=== PATIENT | male | born 1930 | race Caucasian/White ===

== ENCOUNTER 2017-02-17 20:16 | Emergency (ER) | payer MEDICARE ==
[2017-02-17 20:23] VITALS: BP 185/84; PULSE 60; RESP 18; TEMP 97.1
[2017-02-17] MEDS ORDERED: LIDOCAINE VISCOUS 2% 15 ML CUP MUCOUS MEM ONE (20:52)
--- NOTE | 2017-02-17 21:05 | ED ---
Wound/Laceration HPI - General Chief Complaint: Wound/Laceration Stated Complaint: sent from [facility] Time Seen by Provider: 02/17/17 20:29 Source: patient Mode of arrival: ambulatory Limitations: no limitations - History of Present Illness Initial Comments: 86-year-old male presents to the laceration for the last hours. Patient is not sure exactly if he bit it or something that he ate caught and caused a laceration but he cannot get it to stop bleeding he's been putting a lot of pressure and gauze on it. Patient denies any pain. Patient is on Coumadin for valve issue. He states his Coumadin is normally regulated well. Patient has tried ice along with pressure to stop bleeding. Patient went to [place] before coming here. No lightheadedness no dizziness. - Related Data Home Medications Medication Instructions Recorded Confirmed B Complex-Vit C-Vit E-Zinc [Z-Bec] 1 tab PO HS 01/06/14 01/20/16 Biotin 5 mg PO DAILY 01/06/14 01/20/16 Cholecalciferol [Vitamin D3] 1,000 unit PO DAILY 01/06/14 01/20/16 Ezetimibe/Simvastatin [Vytorin 1 tab PO DAILY 01/06/14 01/20/16 10-40 mg Tablet] Furosemide [Lasix] 20 mg PO DAILY 01/06/14 01/20/16 Isosorbide Mononitrate [Imdur] 60 mg PO DAILY 01/06/14 01/20/16 Omeprazole [PriLOSEC] 20 mg PO AC-BRKFST 01/06/14 01/20/16 Potassium Chloride [Klor-Con 20] 20 meq PO DAILY 01/06/14 01/20/16 Sertraline [Zoloft] 50 mg PO HS 01/06/14 01/20/16 Tamsulosin [Flomax] 0.4 mg PO HS 01/06/14 01/20/16 Temazepam 22.5 mg PO HS 01/06/14 01/20/16 Vit A,C & E/Lutein/Minerals 1 tab PO HS 01/06/14 01/20/16 [Ocuvite Tablet] Warfarin [Coumadin] 5 mg PO DAILY@1800 01/06/14 01/20/16 Aspirin EC [Ecotrin] 81 mg PO DAILY 01/05/16 01/20/16 Levothyroxine Sodium [Synthroid] 88 mcg PO DAILY 01/05/16 01/20/16 Losartan [Cozaar] 50 mg PO DAILY 01/05/16 01/20/16 Thera Tears 1 drop BOTH EYES Q6H PRN 01/05/16 01/20/16 Allergies Allergy/AdvReac Type Severity Reaction Status Date / Time codeine Allergy Rash/Hives Verified 02/17/17 20:22 midazolam HCl [From Versed] Allergy Confusion Verified 02/17/17 20:22 Penicillins Allergy Rash/Hives Verified 02/17/17 20:22 Sulfa (Sulfonamide Allergy Rash/Hives Verified 02/17/17 20:22 Antibiotics) deseryl Allergy Unknown Uncoded 02/17/17 20:22 Review of Systems ROS Statement: Those systems with pertinent positive or pertinent negative responses have been documented in the HPI. ROS Other: All systems not noted in ROS Statement are negative. ENT: Reports: other (Tongue laceration). Denies: throat pain Respiratory: Denies: cough Gastrointestinal: Denies: nausea, vomiting Past Medical History Past Medical History: Coronary Artery Disease (CAD), Cancer, Chest Pain / Angina , GERD/Reflux, Hyperlipidemia, Hypertension, Memory Impairment, Osteoarthritis ( OA), Prostate Disorder, Seizure Disorder, Thyroid Disorder Additional Past Medical History / Comment(s): pt very [place] even with racquel hearing aids. per past medical : mi,varicose veins,bronchitis,diverticulosis, leakage of urine, uti,osteoporosis, skin [id number],"arrythmia"RLS. History of Any Multi-Drug Resistant Organisms: None Reported Past Surgical History: AICD, Cardiac Ablation, Coronary Bypass/CABG, Heart Catheterization, Hernia Repair, Orthopedic Surgery, Pacemaker, Tonsillectomy Additional Past Surgical History / Comment(s): valve replacement sx AND A REDO SX.rt knee arthroscopy, repaired detatched retina x2, racquel cataracts, Past Anesthesia/Blood Transfusion Reactions: Motion Sickness Additional Past Anesthesia/Blood Transfusion Reaction / Comment(s): "versed causes hallucinations" Type of Cardiac Device: Permanent Pacemaker, AICD Device Placement Date:: unk Past Psychological History: No Psychological Hx Reported Smoking Status: Former smoker Past Alcohol Use History: None Reported Past Drug Use History: None Reported - Past Family History Father Family Medical History: CVA/TIA Mother Family Medical History: COPD Additional Family Medical History / Comment(s): from chf at age 98 General Exam Limitations: no limitations General appearance: alert, in no apparent distress Head exam: Present: atraumatic, normocephalic, normal inspection Eye exam: Present: normal appearance, PERRL, EOMI. Absent: scleral icterus, conjunctival injection, periorbital swelling ENT exam: Present: other (Small flap laceration to the mid tongue less than 1 cm continuous bleeding noted.) Course Vital Signs 02/17/17 20:18 Temperature 97.1 F L Pulse Rate 60 Respiratory 18 Rate Blood Pressure 185/84 O2 Sat by Pulse 95 Oximetry Procedures - Procedures Initial comment: Patient was given lidocaine viscous on a cotton ball with pressure for about 10 minutes and silver nitrate was applied to the wound patient tolerated it well Medical Decision Making - Medical Decision Making Reviewed INR of 2.7 was reviewed patient's bleeding has stopped. patient was also evaluated by Dr. Deleon. Patient to continue with continuous pressure today follow-up if not improving. - Lab Data Lab Results 02/17/17 Range/Units 20:46 PT 25.7 H (9.0-12.0) sec INR 2.7 H (<1.2) Disposition Clinical Impression: Laceration, History of Coumadin therapy Disposition: HOME SELF-CARE Condition: Good Instructions: Laceration (ED) Referrals: Ha Velazco MD [Primary Care Provider] - 1-2 days Time of Disposition: 21:42
[2017-02-17 21:07] LABS: INR 2.7 (<1.2); Prothrombin Time 25.7 sec (9.0-12.0)
== END 2017-02-17 21:54 | disposition home or self-care (01) ==
LOC: EC 20:16
DX: S01.512A Laceration without foreign body of oral cavity, initial encounter (principal); E78.5 Hyperlipidemia, unspecified; I10 Essential (primary) hypertension; I25.10 Atherosclerotic heart disease of native coronary artery without angina pectoris; K21.9 Gastro-esophageal reflux disease without esophagitis; N42.9 Disorder of prostate, unspecified; E07.9 Disorder of thyroid, unspecified; M19.90 Unspecified osteoarthritis, unspecified site; Z87.891 Personal history of nicotine dependence; Z79.01 Long term (current) use of anticoagulants; Z79.82 Long term (current) use of aspirin; Z79.899 Other long term (current) drug therapy; Z88.0 Allergy status to penicillin; Z88.2 Allergy status to sulfonamides; Z88.5 Allergy status to narcotic agent; Z88.8 Allergy status to other drugs, medicaments and biological substances; Z86.79 Personal history of other diseases of the circulatory system; X58.XXXA Exposure to other specified factors, initial encounter
CPT/HCPCS: 36415; 85610; 99283

== ENCOUNTER 2017-03-15 08:41 | Emergency (ER) | payer MEDICARE ==
[2017-03-15 08:54] VITALS: BP 188/81; PULSE 77; RESP 18; TEMP 97.7
--- NOTE | 2017-03-15 09:18 | ED ---
General Adult HPI - General Chief complaint: Dental/Oral Stated complaint: Oral Bleed/Tounge Bite Time Seen by Provider: 03/15/17 09:00 Source: patient, RN notes reviewed Mode of arrival: ambulatory Limitations: no limitations - History of Present Illness Initial comments: Patient is an 86-year-old male who presents emergency room today with chief complaint of externally biting his tongue last diarrhea was eating dinner. He states it did bleed at the time. States he was able get stop. He states this morning it was bleeding once again. He states it is now stopped once again while he was driving here. Patient does admit that he is on Coumadin. 2 heart problems. He states he did have his level checked recently was 2.5. He denies any other complaints or symptoms at this time. Patient denies any recent fever, chills, shortness of breath, chest pain, back pain, abdominal pain, nausea or vomiting, numbness or tingling, dysuria or hematuria, constipation or diarrhea, headaches or visual changes, or any other complaints. - Related Data Home Medications Medication Instructions Recorded Confirmed B Complex-Vit C-Vit E-Zinc [Z-Bec] 1 tab PO HS 01/06/14 01/20/16 Biotin 5 mg PO DAILY 01/06/14 01/20/16 Cholecalciferol [Vitamin D3] 1,000 unit PO DAILY 01/06/14 01/20/16 Ezetimibe/Simvastatin [Vytorin 1 tab PO DAILY 01/06/14 01/20/16 10-40 mg Tablet] Furosemide [Lasix] 20 mg PO DAILY 01/06/14 01/20/16 Isosorbide Mononitrate [Imdur] 60 mg PO DAILY 01/06/14 01/20/16 Omeprazole [PriLOSEC] 20 mg PO AC-BRKFST 01/06/14 01/20/16 Potassium Chloride [Klor-Con 20] 20 meq PO DAILY 01/06/14 01/20/16 Sertraline [Zoloft] 50 mg PO HS 01/06/14 01/20/16 Tamsulosin [Flomax] 0.4 mg PO HS 01/06/14 01/20/16 Temazepam 22.5 mg PO HS 01/06/14 01/20/16 Vit A,C & E/Lutein/Minerals 1 tab PO HS 01/06/14 01/20/16 [Ocuvite Tablet] Warfarin [Coumadin] 5 mg PO DAILY@1800 01/06/14 01/20/16 Aspirin EC [Ecotrin] 81 mg PO DAILY 01/05/16 01/20/16 Levothyroxine Sodium [Synthroid] 88 mcg PO DAILY 01/05/16 01/20/16 Losartan [Cozaar] 50 mg PO DAILY 01/05/16 01/20/16 Thera Tears 1 drop BOTH EYES Q6H PRN 01/05/16 01/20/16 Allergies Allergy/AdvReac Type Severity Reaction Status Date / Time codeine Allergy Rash/Hives Verified 03/15/17 08:54 midazolam HCl [From Versed] Allergy Confusion Verified 03/15/17 08:54 Penicillins Allergy Rash/Hives Verified 03/15/17 08:54 Sulfa (Sulfonamide Allergy Rash/Hives Verified 03/15/17 08:54 Antibiotics) deseryl Allergy Unknown Uncoded 03/15/17 08:54 Review of Systems ROS Statement: Those systems with pertinent positive or pertinent negative responses have been documented in the HPI. ROS Other: All systems not noted in ROS Statement are negative. Past Medical History Past Medical History: Coronary Artery Disease (CAD), Cancer, Chest Pain / Angina , GERD/Reflux, Hyperlipidemia, Hypertension, Memory Impairment, Osteoarthritis ( OA), Prostate Disorder, Seizure Disorder, Thyroid Disorder Additional Past Medical History / Comment(s): pt very [place] even with racquel hearing aids. per past medical : mi,varicose veins,bronchitis,diverticulosis, leakage of urine, uti,osteoporosis, skin [id number],"arrythmia"RLS. History of Any Multi-Drug Resistant Organisms: None Reported Past Surgical History: AICD, Cardiac Ablation, Coronary Bypass/CABG, Heart Catheterization, Hernia Repair, Orthopedic Surgery, Pacemaker, Tonsillectomy Additional Past Surgical History / Comment(s): valve replacement sx AND A REDO SX.rt knee arthroscopy, repaired detatched retina x2, racquel cataracts, Past Anesthesia/Blood Transfusion Reactions: Motion Sickness Additional Past Anesthesia/Blood Transfusion Reaction / Comment(s): "versed causes hallucinations" Type of Cardiac Device: Permanent Pacemaker, AICD Device Placement Date:: unk Past Psychological History: No Psychological Hx Reported Smoking Status: Former smoker Past Alcohol Use History: None Reported Past Drug Use History: None Reported - Past Family History Father Family Medical History: CVA/TIA Mother Family Medical History: COPD Additional Family Medical History / Comment(s): from chf at age 98 General Exam - General Exam Comments Initial Comments: General: The patient is awake and alert, in no distress, and does not appear acutely ill. Eye: Pupils are equal, round and reactive to light, extra-ocular movements are intact. No nystagmus. There is normal conjunctiva bilaterally. No signs of icterus. Ears, nose, mouth and throat: There are moist mucous membranes and no oral lesions. No active bleeding. There is a small laceration to the right anterior side of the tongue. It is approximated. Neck: The neck is supple, there is no tenderness or JVD. Cardiovascular: There is a regular rate and rhythm. No murmur, rub or gallop is appreciated. Respiratory: Lungs are clear to auscultation, respirations are non-labored, breath sounds are equal. No wheezes, stridor, rales, or rhonchi. Musculoskeletal: Normal ROM, no tenderness. Strength 5/5. Sensation intact. Pulses equal bilaterally 2+. Neurological: A&O x 3. CN II-XII intact, There are no obvious motor or sensory deficits. Coordination appears grossly intact. Speech is normal. Skin: Skin is warm and dry and no rashes or lesions are noted. Psychiatric: Cooperative, appropriate mood & affect, normal judgment. Limitations: no limitations Course Vital Signs 03/15/17 08:52 Temperature 97.7 F Pulse Rate 77 Respiratory 18 Rate Blood Pressure 188/81 O2 Sat by Pulse 92 L Oximetry Medical Decision Making - Medical Decision Making There is no bleeding at this time. Discussed with patient that if we try to use silver nitrate remake cause bleeding to increase and have difficult time stopping it. At this time there is no bleeding I did advise them to hold pressure to the area clean recurs at home and if rebleeding is uncontrolled return here in emergency room. Disposition Clinical Impression: Hemorrhage of tongue Disposition: HOME SELF-CARE Condition: Good Instructions: Laceration (ED) Additional Instructions: Please use ice water ice to the area as discussed and the recurs along with pressure for 15-20 minutes. If rebleeding is uncontrolled at home please return here to the emergency room. Referrals: Ha Velazco MD [Primary Care Provider] - 1-2 days Time of Disposition: 09:17
== END 2017-03-15 09:27 | disposition home or self-care (01) ==
LOC: EC 08:41
DX: K14.8 Other diseases of tongue (principal); S01.512A Laceration without foreign body of oral cavity, initial encounter; I25.10 Atherosclerotic heart disease of native coronary artery without angina pectoris; K21.9 Gastro-esophageal reflux disease without esophagitis; E78.5 Hyperlipidemia, unspecified; I10 Essential (primary) hypertension; M19.90 Unspecified osteoarthritis, unspecified site; G40.909 Epilepsy, unspecified, not intractable, without status epilepticus; E07.9 Disorder of thyroid, unspecified; M81.0 Age-related osteoporosis without current pathological fracture; G25.81 Restless legs syndrome; Z85.828 Personal history of other malignant neoplasm of skin; Z87.891 Personal history of nicotine dependence; Z79.01 Long term (current) use of anticoagulants; Z79.82 Long term (current) use of aspirin; Z79.899 Other long term (current) drug therapy; Z88.0 Allergy status to penicillin; Z88.2 Allergy status to sulfonamides; Z88.5 Allergy status to narcotic agent; Z88.8 Allergy status to other drugs, medicaments and biological substances; W23.0XXA Caught, crushed, jammed, or pinched between moving objects, initial encounter
CPT/HCPCS: 99283

== ENCOUNTER 2018-02-23 08:27 | Emergency (ER) | payer MEDICARE ==
[2018-02-23 08:34] VITALS: RESP 18
[2018-02-23 09:04] LABS: Basophils # (A) 0.1 k/uL (0-0.2); Basophils % (A) 1 %; Eosinophils # (A) 0.2 k/uL (0-0.7); Eosinophils % (A) 4 %; HCT 43.4 % (39.0-53.0); HGB 13.7 gm/dL (13.0-17.5); Lymphocytes # (A) 0.9 k/uL (1.0-4.8); Lymphocytes % (A) 16 %; MCH 28.7 pg (25.0-35.0); MCHC 31.6 g/dL (31.0-37.0); MCV 90.9 fL (80.0-100.0); Monocytes # (A) 0.3 k/uL (0-1.0); Monocytes % (A) 6 %; Neutrophils # (A) 4.2 k/uL (1.3-7.7); Neutrophils % (A) 72 %; Platelet Count 121 k/uL (150-450); RBC 4.77 m/uL (4.30-5.90); RDW 13.9 % (11.5-15.5); WBC 5.8 k/uL (3.8-10.6)
--- NOTE | 2018-02-23 09:09 | ED ---
Recheck HPI - General Chief Complaint: Recheck/Abnormal Lab/Rx Stated Complaint: Bleeding from a precedure on Time Seen by Provider: 02/23/18 08:36 Source: patient, RN notes reviewed Mode of arrival: ambulatory Limitations: no limitations - History of Present Illness Initial Comments: 87-year-old male presented from chief complaint of bleeding from procedural site. Patient states he had melanoma removed by Dr. Broussard on afternoon. Patient states he had continuation of bleeding on Sunday was seen in office headache redressed and states that he was told to go emergency Department if symptoms persisted. 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 Patient states he has not had it recently checked. Patient states that he is losing to the dressing that it's not profusely bleeding though. - Related Data Home Medications Medication Instructions Recorded Confirmed Cholecalciferol [Vitamin D3] 1,000 unit PO DAILY 01/06/14 03/15/17 Furosemide [Lasix] 20 mg PO DAILY 01/06/14 03/15/17 Isosorbide Mononitrate [Imdur] 60 mg PO DAILY 01/06/14 03/15/17 Omeprazole [PriLOSEC] 20 mg PO AC-BRKFST 01/06/14 03/15/17 Potassium Chloride [Klor-Con 20] 20 meq PO DAILY 01/06/14 03/15/17 Sertraline [Zoloft] 50 mg PO HS 01/06/14 03/15/17 Tamsulosin [Flomax] 0.4 mg PO HS 01/06/14 03/15/17 Vit A,C & E/Lutein/Minerals 1 tab PO 01/06/14 03/15/17 [Ocuvite Tablet] Warfarin [Coumadin] 5 mg PO [id number] 01/06/14 03/15/17 Aspirin EC [Ecotrin] 81 mg PO DAILY 01/05/16 03/15/17 Levothyroxine Sodium [Synthroid] 88 mcg PO DAILY 01/05/16 03/15/17 Atenolol [Tenormin] 12.5 mg PO DAILY 03/15/17 03/15/17 Atorvastatin [Lipitor] 80 mg PO DAILY 03/15/17 03/15/17 Vitamin B Complex 1 cap PO DAILY 03/15/17 03/15/17 Warfarin [Coumadin] 7.5 mg PO SUTH 03/15/17 03/15/17 Allergies Allergy/AdvReac Type Severity Reaction Status Date / Time codeine Allergy Rash/Hives Verified 02/23/18 08:34 midazolam HCl [From Versed] Allergy Confusion Verified 02/23/18 08:34 Penicillins Allergy Rash/Hives Verified 02/23/18 08:34 Sulfa (Sulfonamide Allergy Rash/Hives Verified 02/23/18 08:34 Antibiotics) deseryl Allergy Unknown Uncoded 02/23/18 08:34 Review of Systems ROS Statement: Those systems with pertinent positive or pertinent negative responses have been documented in the HPI. ROS Other: All systems not noted in ROS Statement are negative. Past Medical History Past Medical History: Coronary Artery Disease (CAD), Cancer, Chest Pain / Angina , GERD/Reflux, Hyperlipidemia, Hypertension, Memory Impairment, Osteoarthritis ( OA), Prostate Disorder, Seizure Disorder, Thyroid Disorder Additional Past Medical History / Comment(s): pt very [place] even with racquel hearing aids. per past medical : mi,varicose veins,bronchitis,diverticulosis, leakage of urine, uti,osteoporosis, skin [id number],"arrythmia"RLS. History of Any Multi-Drug Resistant Organisms: None Reported Past Surgical History: AICD, Cardiac Ablation, Coronary Bypass/CABG, Heart Catheterization, Hernia Repair, Orthopedic Surgery, Pacemaker, Tonsillectomy Additional Past Surgical History / Comment(s): valve replacement sx AND A REDO SX.rt knee arthroscopy, repaired detatched retina x2, racquel cataracts, skin cancer removal from the back of neck Past Anesthesia/Blood Transfusion Reactions: Motion Sickness Additional Past Anesthesia/Blood Transfusion Reaction / Comment(s): "versed causes hallucinations" Type of Cardiac Device: Permanent Pacemaker, AICD Device Placement Date:: unk Past Psychological History: No Psychological Hx Reported Smoking Status: Former smoker Past Alcohol Use History: None Reported Past Drug Use History: None Reported - Past Family History Father Family Medical History: CVA/TIA Mother Family Medical History: COPD Additional Family Medical History / Comment(s): from chf at age 98 General Exam Limitations: no limitations General appearance: alert, in no apparent distress Head exam: Present: atraumatic, normocephalic, normal inspection Neck exam: Present: full ROM. Absent: normal inspection (Posterior neck and upper back region there is a 6 inch area on sutures noted there is minimal oozing noted around the sutures, there is ecchymosis surrounding the region and mild tenderness), tenderness, meningismus, lymphadenopathy Respiratory exam: Present: normal lung sounds bilaterally. Absent: respiratory distress, wheezes, rales, rhonchi, stridor Cardiovascular Exam: Present: regular rate, normal rhythm, normal heart sounds. Absent: systolic murmur, diastolic murmur, rubs, gallop, clicks Skin exam: Present: warm, dry, intact, normal color. Absent: rash Course Vital Signs 02/23/18 08:29 Temperature 97.8 F Pulse Rate 57 L Respiratory 18 Rate Blood Pressure 126/72 O2 Sat by Pulse 95 Oximetry Medical Decision Making - Medical Decision Making 87-year-old male presented from bleeding from his procedural site. Patient INR is 3.2. Patient will be advised to hold the next doses to have it rechecked and have his wound rechecked. Patient advised to return for any increase in bleeding. Patient did have wound to placed over the 2 areas of bruising, large bulky dressing was applied. Patient has a follow-up appointment on Sunday. - Lab Data Result diagrams: 02/23/18 08:52 Lab Results 02/23/18 02/23/18 Range/Units 08:52 08:52 WBC 5.8 (3.8-10.6) k/uL RBC 4.77 (4.30-5.90) m/uL Hgb 13.7 (13.0-17.5) gm/dL Hct 43.4 (39.0-53.0) % MCV 90.9 (80.0-100.0) fL MCH 28.7 (25.0-35.0) pg MCHC 31.6 (31.0-37.0) g/dL RDW 13.9 (11.5-15.5) % Plt Count 121 L (150-450) k/uL Neutrophils % 72 % Lymphocytes % 16 % Monocytes % 6 % Eosinophils % 4 % Basophils % 1 % Neutrophils # 4.2 (1.3-7.7) k/uL Lymphocytes # 0.9 L (1.0-4.8) k/uL Monocytes # 0.3 (0-1.0) k/uL Eosinophils # 0.2 (0-0.7) k/uL Basophils # 0.1 (0-0.2) k/uL PT 28.7 H (9.0-12.0) sec INR 3.2 H (<1.2) APTT 36.3 H (22.0-30.0) sec Disposition Clinical Impression: Encounter for examination of surgical site, Bleeding from wound Disposition: HOME SELF-CARE Condition: Stable Instructions: Care For Your Stitches (ED) Additional Instructions: Please return to the Emergency Department if symptoms worsen or any other concerns. Is patient prescribed a controlled substance at d/c from ED?: No Referrals: Ha Velazco MD [Primary Care Provider] - 1-2 days Time of Disposition: 09:38
[2018-02-23 09:13] LABS: INR 3.2 (<1.2); Partial Thromboplastin Time 36.3 sec (22.0-30.0); Prothrombin Time 28.7 sec (9.0-12.0)
[2018-02-23 10:10] VITALS: BP 132/61; PULSE 60; TEMP 97.6
== END 2018-02-23 10:06 | disposition home or self-care (01) ==
LOC: EC 08:27
DX: L76.22 Postprocedural hemorrhage of skin and subcutaneous tissue following other procedure (principal); I25.10 Atherosclerotic heart disease of native coronary artery without angina pectoris; K21.9 Gastro-esophageal reflux disease without esophagitis; E78.5 Hyperlipidemia, unspecified; I10 Essential (primary) hypertension; N42.9 Disorder of prostate, unspecified; E07.9 Disorder of thyroid, unspecified; Z85.820 Personal history of malignant melanoma of skin; Z95.1 Presence of aortocoronary bypass graft; Z95.818 Presence of other cardiac implants and grafts; Z95.810 Presence of automatic (implantable) cardiac defibrillator; Z95.2 Presence of prosthetic heart valve; Z98.890 Other specified postprocedural states; Z87.891 Personal history of nicotine dependence; Z79.01 Long term (current) use of anticoagulants; Z79.82 Long term (current) use of aspirin; Z79.899 Other long term (current) drug therapy; Z88.5 Allergy status to narcotic agent; Z88.4 Allergy status to anesthetic agent; Z88.0 Allergy status to penicillin; Z88.2 Allergy status to sulfonamides; Z88.8 Allergy status to other drugs, medicaments and biological substances
CPT/HCPCS: 36415; 85025; 85610; 85730; 99283

== ENCOUNTER 2018-03-10 10:19 | Emergency (ER) | payer MEDICARE ==
[2018-03-10 10:23] VITALS: BP 150/74; PULSE 63; RESP 20; TEMP 98
[2018-03-10] MEDS ORDERED: LIDOCAINE VISCOUS 2% 15 ML CUP MUCOUS MEM ONE (10:39)
--- NOTE | 2018-03-10 10:41 | ED ---
Wound/Laceration HPI - General Chief Complaint: Wound/Laceration Stated Complaint: melba laceration Time Seen by Provider: 03/10/18 10:25 Source: patient, family, RN notes reviewed, old records reviewed Mode of arrival: ambulatory Limitations: no limitations - History of Present Illness Initial Comments: this patient's an 87-year-old male presents emergency department today with chief complaint of a laceration of his tongue. Patient reports that he is on Coumadin for heart valve problem. Patient reports that his last Coumadin was checked and within normal limits. Patient states that yesterday while he was eating dinner Patient that the end of this time. He reports that he was able to control the bleeding last night. He reports that this morning he noticed some blood on his pillow was concerned was rebleeding. He's been holding pressure and gauze over the area before arriving here. They're concerned this will rebleed again if it is not closed. - Related Data Home Medications Medication Instructions Recorded Confirmed Cholecalciferol [Vitamin D3] 1,000 unit PO DAILY 01/06/14 03/15/17 Furosemide [Lasix] 20 mg PO DAILY 01/06/14 03/15/17 Isosorbide Mononitrate [Imdur] 60 mg PO DAILY 01/06/14 03/15/17 Omeprazole [PriLOSEC] 20 mg PO AC-BRKFST 01/06/14 03/15/17 Potassium Chloride [Klor-Con 20] 20 meq PO DAILY 01/06/14 03/15/17 Sertraline [Zoloft] 50 mg PO HS 01/06/14 03/15/17 Tamsulosin [Flomax] 0.4 mg PO HS 01/06/14 03/15/17 Vit A,C & E/Lutein/Minerals 1 tab PO HS 01/06/14 03/15/17 [Ocuvite Tablet] Warfarin [Coumadin] 5 mg PO [id number] 01/06/14 03/15/17 Aspirin EC [Ecotrin] 81 mg PO DAILY 01/05/16 03/15/17 Levothyroxine Sodium [Synthroid] 88 mcg PO DAILY 01/05/16 03/15/17 Atenolol [Tenormin] 12.5 mg PO DAILY 03/15/17 03/15/17 Atorvastatin [Lipitor] 80 mg PO DAILY 03/15/17 03/15/17 Vitamin B Complex 1 cap PO DAILY 03/15/17 03/15/17 Warfarin [Coumadin] 7.5 mg PO SUTH 03/15/17 03/15/17 Allergies Allergy/AdvReac Type Severity Reaction Status Date / Time codeine Allergy Rash/Hives Verified 03/10/18 10:23 midazolam HCl [From Versed] Allergy Confusion Verified 03/10/18 10:23 Penicillins Allergy Rash/Hives Verified 03/10/18 10:23 Sulfa (Sulfonamide Allergy Rash/Hives Verified 03/10/18 10:23 Antibiotics) deseryl Allergy Unknown Uncoded 03/10/18 10:23 Review of Systems ROS Statement: Those systems with pertinent positive or pertinent negative responses have been documented in the HPI. ROS Other: All systems not noted in ROS Statement are negative. Past Medical History Past Medical History: Coronary Artery Disease (CAD), Cancer, Chest Pain / Angina , GERD/Reflux, Hyperlipidemia, Hypertension, Memory Impairment, Osteoarthritis ( OA), Prostate Disorder, Seizure Disorder, Thyroid Disorder Additional Past Medical History / Comment(s): pt very [place] even with racquel hearing aids. per past medical : mi,varicose veins,bronchitis,diverticulosis, leakage of urine, uti,osteoporosis, skin [id number],"arrythmia"RLS. History of Any Multi-Drug Resistant Organisms: None Reported Past Surgical History: AICD, Cardiac Ablation, Coronary Bypass/CABG, Heart Catheterization, Hernia Repair, Orthopedic Surgery, Pacemaker, Tonsillectomy Additional Past Surgical History / Comment(s): valve replacement sx AND A REDO SX.rt knee arthroscopy, repaired detatched retina x2, racquel cataracts, skin cancer removal from the back of neck Past Anesthesia/Blood Transfusion Reactions: Motion Sickness Additional Past Anesthesia/Blood Transfusion Reaction / Comment(s): "versed causes hallucinations" Type of Cardiac Device: Permanent Pacemaker, AICD Device Placement Date:: unk Past Psychological History: No Psychological Hx Reported Smoking Status: Former smoker Past Alcohol Use History: None Reported Past Drug Use History: None Reported - Past Family History Father Family Medical History: CVA/TIA Mother Family Medical History: COPD Additional Family Medical History / Comment(s): from chf at age 98 General Exam - General Exam Comments Initial Comments: Patient is an 87-year-old male. Alert and oriented. No significant distress. Limitations: no limitations General appearance: alert, in no apparent distress Head exam: Present: atraumatic Eye exam: Present: normal appearance, PERRL, EOMI. Absent: scleral icterus, conjunctival injection, periorbital swelling ENT exam: Present: normal exam, mucous membranes moist. Absent: normal oropharynx (Patient has a small closed abrasion over the left tip of his tongue. There is no active bleeding at this time. No other areas of abrasion in the oropharynx.) Neck exam: Present: normal inspection. Absent: tenderness, meningismus, lymphadenopathy Respiratory exam: Present: normal lung sounds bilaterally. Absent: respiratory distress, wheezes, rales, rhonchi, stridor Cardiovascular Exam: Present: regular rate, normal rhythm, normal heart sounds. Absent: systolic murmur, diastolic murmur, rubs, gallop, clicks GI/Abdominal exam: Present: soft, normal bowel sounds. Absent: distended, tenderness, guarding, rebound, rigid Extremities exam: Present: normal inspection, full ROM, normal capillary refill. Absent: tenderness, pedal edema, joint swelling, calf tenderness Back exam: Present: normal inspection Neurological exam: Present: alert, oriented X3, CN II-XII intact Psychiatric exam: Present: normal affect, normal mood Skin exam: Present: warm, dry, intact, normal color. Absent: rash Course Vital Signs 03/10/18 10:21 Temperature 98.0 F Pulse Rate 63 Respiratory 20 Rate Blood Pressure 150/74 O2 Sat by Pulse 100 Oximetry - Reevaluation(s) Reevaluation #1: 03/10/18 10:42 at this time I discussed with no active bleeding would not be concerned for closing. He is concerned when he eats that it will reopen. I discussed the given some coffee and something to eat here and if it does return to bleed and cauterized it with silver nitrate. Medical Decision Making - Medical Decision Making A 7-year-old male with a history of Coumadin use verbal heart valve disorder presents emergency department today with bleeding over his tongue. He reports his any chronic, and the pain of his son. He can actively controlled last night. He rest the emergency department with gauze over the tongue. There is no active bleeding. It is scabbed over. Did tolerate drinking coffee and eating crackers here in the did not rebleed. The area appears to be well scabbed over. Discussed that I do not want and he is any cauterization methods at this time. Patient agrees. I discussed that if it does seem to rebleeding needs to apply firm pressure for 10-15 minutes. Discussed that he can always return but discontinued re-bleed. Patient agrees. Patient and his understand treat plan will comply. Return parameters were discussed. Disposition Clinical Impression: Tongue biting, Abrasion of tongue Disposition: HOME SELF-CARE Condition: Good Instructions: Soft Diet (ED), Abrasion (ED) Additional Instructions: Patient should return if the bleeding recurs. Patient needs to apply firm pressure over the tongue for 10-15 minutes. Patient can return to the emergency department if it does contain rebleed to stop. Patient should follow- up with primary care provider. Recommended soft foods for the next 2 days. Is patient prescribed a controlled substance at d/c from ED?: No Referrals: Ha Velazco MD [Primary Care Provider] - 1-2 days Time of Disposition: 11:04
== END 2018-03-10 11:12 | disposition home or self-care (01) ==
LOC: EC 10:19
DX: S00.512A Abrasion of oral cavity, initial encounter (principal); E78.5 Hyperlipidemia, unspecified; I10 Essential (primary) hypertension; I25.10 Atherosclerotic heart disease of native coronary artery without angina pectoris; K21.9 Gastro-esophageal reflux disease without esophagitis; N42.9 Disorder of prostate, unspecified; E07.9 Disorder of thyroid, unspecified; H91.93 Unspecified hearing loss, bilateral; Z87.891 Personal history of nicotine dependence; Z88.0 Allergy status to penicillin; Z88.2 Allergy status to sulfonamides; Z88.5 Allergy status to narcotic agent; Z88.8 Allergy status to other drugs, medicaments and biological substances; Z79.01 Long term (current) use of anticoagulants; Z79.82 Long term (current) use of aspirin; Z79.899 Other long term (current) drug therapy; Z86.79 Personal history of other diseases of the circulatory system; Z97.4 Presence of external hearing-aid; Z95.0 Presence of cardiac pacemaker; Z95.1 Presence of aortocoronary bypass graft; Z95.5 Presence of coronary angioplasty implant and graft; X58.XXXA Exposure to other specified factors, initial encounter; Y93.89 Activity, other specified; Y92.009 Unspecified place in unspecified non-institutional (private) residence as the place of occurrence of the external cause
CPT/HCPCS: 99283

== ENCOUNTER 2018-11-06 16:55 | Inpatient (IN) | payer MEDICARE ==
--- NOTE | 2018-11-06 17:12 | ED ---
SOB HPI - General Stated Complaint: Difficulty Breathing Time Seen by Provider: 11/06/18 17:04 - History of Present Illness Initial Comments: This is an 88-year-old male with a history of CHF, AICD placement, previous bypass surgery who presents emergency department for shortness of breath. The patient states that his symptoms started a few days ago however acutely worsened this afternoon. The patient states that he has had a cough productive of bloody sputum. He states he has not had fevers or chills. He has not noticed any weight gain or increased leg swelling. He states that he has been compliant with his medications and diet. The patient was noted to be saturating in the 70s when EMS arrived. They did give him a couple of DuoNeb treatments and 50 g of prednisone in route. the patient reports mild improvement in his symptoms at that time however continued to have significant shortness of breath. patient otherwise denies any chest pain. no abdominal pain, nausea, vomiting, or diarrhea. denies any history of pe or dvt. the patient is on coumadin currently. he denies any other acute complaints. The patient does state that h e would agree to intubation if required. The does state that she was sick recently with an upper respiratory infection area the patient has been coughing. - Related Data Home Medications Medication Instructions Recorded Confirmed Cholecalciferol [Vitamin D3] 1,000 unit PO DAILY 01/06/14 11/06/18 Furosemide [Lasix] 20 mg PO DAILY 01/06/14 11/06/18 Isosorbide Mononitrate [Imdur] 60 mg PO DAILY 01/06/14 11/06/18 Omeprazole [PriLOSEC] 20 mg PO AC-BRKFST 01/06/14 11/06/18 Potassium Chloride [Klor-Con 20] 20 meq PO DAILY 01/06/14 11/06/18 Tamsulosin [Flomax] 0.4 mg PO HS 01/06/14 11/06/18 Vit A,C & E/Lutein/Minerals 1 tab PO 01/06/14 11/06/18 [Ocuvite Tablet] Aspirin EC [Ecotrin] 81 mg PO DAILY 01/05/16 11/06/18 Levothyroxine Sodium [Synthroid] 88 mcg PO DAILY 01/05/16 11/06/18 Atenolol [Tenormin] 12.5 mg PO DAILY 03/15/17 11/06/18 Atorvastatin [Lipitor] 80 mg PO DAILY 03/15/17 11/06/18 Vitamin B Complex 1 cap PO DAILY 03/15/17 11/06/18 Ferrous Sulfate [Iron (65 MG 325 mg PO DAILY 11/06/18 11/06/18 Elemental)] Losartan [Cozaar] 25 mg PO DAILY 11/06/18 11/06/18 Sertraline [Zoloft] 25 mg PO HS 11/06/18 11/06/18 Warfarin [Coumadin] 5 mg PO DAILY 11/06/18 11/06/18 Allergies Allergy/AdvReac Type Severity Reaction Status Date / Time codeine Allergy Rash/Hives Verified 11/06/18 17:23 midazolam HCl [From Versed] Allergy Confusion Verified 11/06/18 17:23 Penicillins Allergy Rash/Hives Verified 11/06/18 17:23 Sulfa (Sulfonamide Allergy Rash/Hives Verified 11/06/18 17:23 Antibiotics) deseryl Allergy Unknown Uncoded 03/10/18 10:23 Review of Systems ROS Statement: Those systems with pertinent positive or pertinent negative responses have been documented in the HPI. ROS Other: All systems not noted in ROS Statement are negative. Past Medical History Past Medical History: Coronary Artery Disease (CAD), Cancer, Chest Pain / Angina, GERD/Reflux, Hyperlipidemia, Hypertension, Memory Impairment, Osteoarthritis (OA), Prostate Disorder, Seizure Disorder, Thyroid Disorder Additional Past Medical History / Comment(s): pt very [place] even with racquel hearing aids. per past medical : mi,varicose veins,bronchitis,diverticulosis, leakage of urine, uti,osteoporosis, skin [id number],"arrythmia"RLS. History of Any Multi-Drug Resistant Organisms: None Reported Past Surgical History: AICD, Cardiac Ablation, Coronary Bypass/CABG, Heart Catheterization, Hernia Repair, Orthopedic Surgery, Pacemaker, Tonsillectomy Additional Past Surgical History / Comment(s): valve replacement sx AND A REDO SX.rt knee arthroscopy, repaired detatched retina x2, racquel cataracts, skin cancer removal from the back of neck Past Anesthesia/Blood Transfusion Reactions: Motion Sickness Additional Past Anesthesia/Blood Transfusion Reaction / Comment(s): "versed causes hallucinations" Type of Cardiac Device: Permanent Pacemaker, AICD Device Placement Date:: unk Past Psychological History: No Psychological Hx Reported Smoking Status: Former smoker Past Alcohol Use History: None Reported Past Drug Use History: None Reported - Past Family History Father Family Medical History: CVA/TIA Mother Family Medical History: COPD Additional Family Medical History / Comment(s): from chf at age 98 General Exam - General Exam Comments Initial Comments: Constitutional: Awake alert appears uncomfortable and in moderate respiratory distress Head: Normocephalic atraumatic Eyes: no conjunctival injection No scleral icterus EOMI Neck: JVD is present Supple Heart: Regular rate rhythm normal S1-S2 no murmurs Lungs: Patient has audible rales at bilateral bases, he is has tachypnea with signs of moderate respiratory distress there is some wheezing as well Abdomen: Soft nondistended nontender Extremities: Mild pitting edema to bilateral lower extremities equally DP pulses intact Radial pulses intact Neuro: A&Ox3 No focal neurologic deficits Psych: Appropriate mood and affect Course Vital Signs 11/06/18 11/06/18 11/06/18 17:08 17:21 17:40 Temperature 97.4 F L Pulse Rate 105 H 103 H 97 Respiratory 22 24 20 Rate Blood Pressure 191/103 185/99 164/88 O2 Sat by Pulse 92 L 99 100 Oximetry - Reevaluation(s) Reevaluation #1: 11/06/18 17:17 EKG showing what appears to be a paced rhythm with a rate of 103. There is no abnormal ST segment changes or T-wave inversions. QTC is 531 and QRS is widened due to the pacer. There are occasional ectopic beats. Reevaluation #2: 11/06/18 18:34 Sepsis identified once chest x-ray was read. Patient given 30 mL per KG IV fluid bolus based on ideal body weight of 75 kg. Pulse patient has gotten the fluids from antibiotic administration and EMS did give the patient 300 mL in route. Medical Decision Making - Medical Decision Making Is an 88-year-old male who presents emergency department for hypoxic respiratory failure. He required a BiPAP on arrival. The patient was much improved after BiPAP. Chest x-ray did show a right lower lobe pneumonia. The patient was started on to me acquired pneumonia coverage and given IV fluids sepsis bolus. He will be admitted to the ICU. Dr. Calero or was contacted and agrees with management at this point with no further recommendations. Dr. Zuleta except see admission. The patient family were updated and agree. CTA is currently pending given the patient's hemoptysis however the does state that the patient bites his tongue and his sleep and has had multiple episodes of hemoptysis in the past. - Lab Data Result diagrams: 11/06/18 17:09 11/06/18 17:09 Lab Results 11/06/18 11/06/18 11/06/18 Range/Units 17:09 17:09 17:09 WBC 13.9 H (3.8-10.6) k/uL RBC 4.91 (4.30-5.90) m/uL Hgb 14.8 (13.0-17.5) gm/dL Hct 45.2 (39.0-53.0) % MCV 91.9 (80.0-100.0) fL MCH 30.2 (25.0-35.0) pg MCHC 32.8 (31.0-37.0) g/dL RDW 14.2 (11.5-15.5) % Plt Count 140 L (150-450) k/uL Neutrophils % 86 % Lymphocytes % 8 % Monocytes % 4 % Eosinophils % 1 % Basophils % 0 % Neutrophils # 11.9 H (1.3-7.7) k/uL Lymphocytes # 1.1 (1.0-4.8) k/uL Monocytes # 0.6 (0-1.0) k/uL Eosinophils # 0.1 (0-0.7) k/uL Basophils # 0.1 (0-0.2) k/uL PT (9.0-12.0) sec INR (<1.2) APTT (22.0-30.0) sec Sodium 142 (137-145) mmol/L Potassium 3.9 (3.5-5.1) mmol/L Chloride 108 H (98-107) mmol/L Carbon Dioxide 21 L (22-30) mmol/L Anion Gap 13 mmol/L BUN 28 H (9-20) mg/dL Creatinine 1.14 (0.66-1.25) mg/dL Est GFR (CKD-EPI)AfAm 67 (>60 ml/min/1.73 sqM) Est GFR (CKD-EPI)NonAf 58 (>60 ml/min/1.73 sqM) Glucose 189 H (74-99) mg/dL Plasma Lactic Acid Julio (0.7-2.0) mmol/L Calcium 9.8 (8.4-10.2) mg/dL Magnesium 1.8 (1.6-2.3) mg/dL Total Bilirubin 2.0 H (0.2-1.3) mg/dL AST 38 (17-59) U/L ALT 36 (21-72) U/L Alkaline Phosphatase 134 H (38-126) U/L CK-MB (CK-2) 3.2 H (0.0-2.4) ng/mL Troponin I <0.012 (0.000-0.034) ng/mL NT-Pro-B Natriuret Pep pg/mL Total Protein 8.0 (6.3-8.2) g/dL Albumin 4.9 (3.5-5.0) g/dL Blood Type Blood Type Recheck Antibody Screen Spec Expiration Date 11/06/18 11/06/18 11/06/18 Range/Units 17:09 17:09 17:09 WBC (3.8-10.6) k/uL RBC (4.30-5.90) m/uL Hgb (13.0-17.5) gm/dL Hct (39.0-53.0) % MCV (80.0-100.0) fL MCH (25.0-35.0) pg MCHC (31.0-37.0) g/dL RDW (11.5-15.5) % Plt Count (150-450) k/uL Neutrophils % % Lymphocytes % % Monocytes % % Eosinophils % % Basophils % % Neutrophils # (1.3-7.7) k/uL Lymphocytes # (1.0-4.8) k/uL Monocytes # (0-1.0) k/uL Eosinophils # (0-0.7) k/uL Basophils # (0-0.2) k/uL PT 19.3 H (9.0-12.0) sec INR 2.0 H (<1.2) APTT 29.4 (22.0-30.0) sec Sodium (137-145) mmol/L Potassium (3.5-5.1) mmol/L Chloride (98-107) mmol/L Carbon Dioxide (22-30) mmol/L Anion Gap mmol/L BUN (9-20) mg/dL Creatinine (0.66-1.25) mg/dL Est GFR (CKD-EPI)AfAm (>60 ml/min/1.73 sqM) Est GFR (CKD-EPI)NonAf (>60 ml/min/1.73 sqM) Glucose (74-99) mg/dL Plasma Lactic Acid Julio 2.9 H* (0.7-2.0) mmol/L Calcium (8.4-10.2) mg/dL Magnesium (1.6-2.3) mg/dL Total Bilirubin (0.2-1.3) mg/dL AST (17-59) U/L ALT (21-72) U/L Alkaline Phosphatase (38-126) U/L CK-MB (CK-2) (0.0-2.4) ng/mL Troponin I (0.000-0.034) ng/mL NT-Pro-B Natriuret Pep 1680 pg/mL Total Protein (6.3-8.2) g/dL Albumin (3.5-5.0) g/dL Blood Type Blood Type Recheck Antibody Screen Spec Expiration Date 11/06/18 Range/Units 17:22 WBC (3.8-10.6) k/uL RBC (4.30-5.90) m/uL Hgb (13.0-17.5) gm/dL Hct (39.0-53.0) % MCV (80.0-100.0) fL MCH (25.0-35.0) pg MCHC (31.0-37.0) g/dL RDW (11.5-15.5) % Plt Count (150-450) k/uL Neutrophils % % Lymphocytes % % Monocytes % % Eosinophils % % Basophils % % Neutrophils # (1.3-7.7) k/uL Lymphocytes # (1.0-4.8) k/uL Monocytes # (0-1.0) k/uL Eosinophils # (0-0.7) k/uL Basophils # (0-0.2) k/uL PT (9.0-12.0) sec INR (<1.2) APTT (22.0-30.0) sec Sodium (137-145) mmol/L Potassium (3.5-5.1) mmol/L Chloride (98-107) mmol/L Carbon Dioxide (22-30) mmol/L Anion Gap mmol/L BUN (9-20) mg/dL Creatinine (0.66-1.25) mg/dL Est GFR (CKD-EPI)AfAm (>60 ml/min/1.73 sqM) Est GFR (CKD-EPI)NonAf (>60 ml/min/1.73 sqM) Glucose (74-99) mg/dL Plasma Lactic Acid Julio (0.7-2.0) mmol/L Calcium (8.4-10.2) mg/dL Magnesium (1.6-2.3) mg/dL Total Bilirubin (0.2-1.3) mg/dL AST (17-59) U/L ALT (21-72) U/L Alkaline Phosphatase (38-126) U/L CK-MB (CK-2) (0.0-2.4) ng/mL Troponin I (0.000-0.034) ng/mL NT-Pro-B Natriuret Pep pg/mL Total Protein (6.3-8.2) g/dL Albumin (3.5-5.0) g/dL Blood Type AB Positive Blood Type Recheck No Antibody Screen NEGATIVE Spec Expiration Date 11/09/20182321 Disposition Clinical Impression: CAP (community acquired pneumonia), Sepsis, Acute respiratory failure with hypoxia Disposition: ADMITTED IP TO THIS HOSP Condition: Stable
[2018-11-06 17:35] LABS: Basophils # (A) 0.1 k/uL (0-0.2); Basophils % (A) 0 %; Eosinophils # (A) 0.1 k/uL (0-0.7); Eosinophils % (A) 1 %; HCT 45.2 % (39.0-53.0); HGB 14.8 gm/dL (13.0-17.5); Lymphocytes # (A) 1.1 k/uL (1.0-4.8); Lymphocytes % (A) 8 %; MCH 30.2 pg (25.0-35.0); MCHC 32.8 g/dL (31.0-37.0); MCV 91.9 fL (80.0-100.0); Mean Platelet Volume 7.2; Monocytes # (A) 0.6 k/uL (0-1.0); Monocytes % (A) 4 %; Neutrophils # (A) 11.9 k/uL (1.3-7.7); Neutrophils % (A) 86 %; Platelet Count 140 k/uL (150-450); RBC 4.91 m/uL (4.30-5.90); RDW 14.2 % (11.5-15.5); WBC 13.9 k/uL (3.8-10.6)
[2018-11-06 17:43] LABS: Partial Thromboplastin Time 29.4 sec (22.0-30.0); Prothrombin Time 19.3 sec (9.0-12.0)
[2018-11-06 17:49] LABS: Albumin 4.9 g/dL (3.5-5.0); Calcium 9.8 mg/dL (8.4-10.2); Magnesium 1.8 mg/dL (1.6-2.3); Potassium 3.9 mmol/L (3.5-5.1)
--- NOTE | 2018-11-06 18:07 | XR ---
EXAMINATION TYPE: XR chest 1V portable DATE OF EXAM: 11/06/2018 COMPARISON: 01/06/2016 HISTORY: Difficulty breathing TECHNIQUE: Single frontal view of the chest is obtained. FINDINGS: There is some patchy airspace infiltrate right lower lobe. There are sternal wires. Heart is enlarged. There is no gross heart failure. There is a left axillary pacemaker. There is coarsening of interstitial markings. IMPRESSION: There is new airspace pneumonia right lower lobe compared to last exam. There is probabl y underlying pulmonary fibrosis. Old healed right rib fractures noted. No definite heart failure seen .
[2018-11-06] MEDS ORDERED: AZITHROMYCIN 500 MG in SODIUM CHLORIDE 0.9% 250 ML IVPB STA (18:08)
[2018-11-06] MEDS ORDERED: SODIUM CHLORIDE 0.9% 2,000 ML IV ONE (18:09)
[2018-11-06 18:10] LABS: Creatine Kinase MB 3.2 ng/mL (0.0-2.4); Troponin I <0.012 ng/mL (0.000-0.034)
[2018-11-06] MEDS ORDERED: SODIUM CHLORIDE 0.9% 500 ML 250 ML IV ONE (18:34)
[2018-11-06] MEDS ORDERED: NALOXONE 0.4 MG/ML 1 ML VIAL IV PRN (18:42)
[2018-11-06 20:08] LABS: Glucose,Whole Blood 133 mg/dL (75-99)
--- NOTE | 2018-11-06 20:15 | CT ---
EXAMINATION TYPE: CT angio chest DATE OF EXAM: 11/06/2018 7:54 PM COMPARISON: None HISTORY: Hemoptysis and shortness of breath. CT DLP: 583.2 mGycm Automated exposure control for dose reduction was used. CONTRAST: CTA scan of the thorax is performed with IV Contrast, patient injected with 80ml mL of Isovue 370, pu lmonary embolism protocol. There are 3-D post processed images.. FINDINGS: There are bilateral pleural effusions and larger on the left side. There is extensive airspace consol idation and atelectasis in both lower lobes and worse on the right side. Heart is enlarged. There is no pericardial effusion. I see no filling defects in the pulmonary arteries. There are large pulmonary arteries consistent wit h some degree of pulmonary hypertension. Thoracic aorta is atheromatous. 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 There is no mediastinal adenopathy. There are no hilar masses. There are numerous calcified gallstones. There is a 4 cm cortical cyst anterior left kidney. There is mild ascites fluid around the right lobe of the liver. There is suggestion of some small bowel mesen teric edema. There are multiple enlarged small bowel mesenteric lymph nodes. The bony thorax is intac t. I see no bony destructive process. IMPRESSION: NO EVIDENCE OF PULMONARY EMBOLISM. 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 THERE IS CONTRAST REFLUX INTO THE INFERIOR JAGRUTI A CAVA CONSISTENT WITH CONGESTIVE HEART FAILURE. BILATERAL LOWER LOBE PNEUMONIA AND ATELECTASIS. SMALL BOWEL MESENTERIC ADENOPATHY AND EDEMA. MILD ASCITES.
[2018-11-06 20:57] VITALS: BMI 34.8
[2018-11-06] MEDS: SERTRALINE 50 MG TAB PO SCH (22:02)
[2018-11-06] MEDS: ALPRAZolam 0.25 MG TAB PO PRN (22:04)
[2018-11-06] MEDS: ACETAMINOPHEN TAB 325 MG TAB PO PRN (22:04)
[2018-11-06] MEDS: SODIUM CHLORIDE 0.9% 1,000 ML IV SCH (22:35)
[2018-11-07] MEDS: TAMSULOSIN 0.4 MG CAP.ER.24H PO SCH ×2 (00:47→22:06)
[2018-11-07] MEDS ORDERED: NALOXONE 0.4 MG/ML 1 ML VIAL IV PRN (05:49)
[2018-11-07] MEDS: LEVOTHYROXINE 88 MCG TAB PO SCH (06:29)
[2018-11-07] MEDS: PANTOPRAZOLE 40 MG TABLET PO SCH (06:29)
[2018-11-07] MEDS: SODIUM CHLORIDE 0.9% 1,000 ML IV SCH ×2 (06:43→18:17)
[2018-11-07 07:38] LABS: Albumin 4.1 g/dL (3.5-5.0); Magnesium 1.6 mg/dL (1.6-2.3); Phosphorus 3.8 mg/dL (2.5-4.5); Potassium 4.4 mmol/L (3.5-5.1); Total Bilirubin 2.2 mg/dL (0.2-1.3); Total Protein 6.7 g/dL (6.3-8.2)
[2018-11-07 07:43] LABS: HCT 44.8 % (39.0-53.0); HGB 14.3 gm/dL (13.0-17.5); MCH 29.3 pg (25.0-35.0); MCHC 31.9 g/dL (31.0-37.0); MCV 91.8 fL (80.0-100.0); Mean Platelet Volume 7.8; Platelet Count 106 k/uL (150-450); RBC 4.89 m/uL (4.30-5.90); RDW 14.6 % (11.5-15.5); WBC 16.5 k/uL (3.8-10.6)
[2018-11-07] MEDS ORDERED: Magnesium Replacement Protocol 1 EACH MISC MISCELLANE PRN (08:29)
[2018-11-07] MEDS: ASPIRIN 81 MG PO SCH (08:42)
[2018-11-07] MEDS: ATENOLOL 25 MG TAB PO SCH (08:42)
[2018-11-07] MEDS: POTASSIUM CHLORIDE ER 20 MEQ TAB.ER PO SCH (08:42)
[2018-11-07] MEDS: ISOSORBIDE MONONITRATE ER 60 MG TAB.ER.24H PO SCH (08:42)
[2018-11-07] MEDS: CHOLECALCIFEROL 1,000 UNIT TAB PO SCH (08:42)
[2018-11-07] MEDS: ATORVASTATIN 80 MG TAB PO SCH (08:42)
[2018-11-07] MEDS: FERROUS SULFATE 325 MG TAB PO SCH (08:42)
[2018-11-07] MEDS: LOSARTAN 25 MG TAB PO SCH (08:44)
[2018-11-07] MEDS: MAGNESIUM SULFATE-D5W PMX 1 GM in DEXTROSE/WATER 1 100ML.BAG IVPB SCH ×2 (08:49→13:22)
[2018-11-07] MEDS: ACETAMINOPHEN TAB 325 MG TAB PO PRN ×2 (08:49→22:14)
[2018-11-07] MEDS: ALPRAZolam 0.25 MG TAB PO PRN ×2 (08:50→21:55)
[2018-11-07] MEDS ORDERED: FUROSEMIDE 20 MG TAB PO SCH (09:00)
[2018-11-07] MEDS: FUROSEMIDE 10 MG/ML 4 ML VIAL IV SCH ×2 (09:20→22:05)
--- NOTE | 2018-11-07 09:39 | HP ---
HISTORY AND PHYSICAL Mr. Guzman is an 88-year-old gentleman who presented yesterday evening to the emergency room with increasing shortness of breath and cough also associated with weakness. Apparently, he was coughing some bloody sputum. Yesterday he was out eating and had to drive himself home and felt very weak and was brought therefore to the emergency room. PAST MEDICAL HISTORY: Past medical history is positive for atrial fibrillation and flutter with previous ablation in the past and he is on chronic Coumadin therapy. Also coronary artery disease with previous history of coronary artery bypass. Has had previous aortic valve surgery with redo surgery back in the year 1999. History of pacemaker and defibrillator placement. Hypertension. Hyperlipidemia. Complex seizure disorder, he is treated for along with. Hypothyroidism. Restless legs syndrome. Previous heavy alcohol usage. History of BPH. ALLERGIES: The patient does have history of allergies apparently to PENICILLIN in the past, although he has been able to take amoxicillin before dental procedures. SULFA, he has rash and hives. Reaction to CODEINE in the past and VERSED. Unknown reaction to TRAZODONE. HOME MEDICATIONS: Home medications include: 1. Losartan 25 mg daily. 2. Coumadin 5 mg daily, but adjusted according to INR. 3. Vitamin B complex daily. 4. Also vitamin A, C, and E with Ocuvite one at bedtime. 5. Tamsulosin 0.4 mg at bedtime. 6. Sertraline 25 mg at bedtime. 7. Klor-Con 20 mEq daily. 8. Omeprazole 20 mg before breakfast. 9. Levothyroxine 88 mcg daily. 10.Imdur 60 mg daily. 11.Lasix 20 mg daily. 12.Ferrous sulfate 65 mg/325 mg daily. 13.Vitamin D3, 1000 units daily. 14.Lipitor 80 mg daily. 15.Atenolol 12.5 daily. 16.Aspirin 81 mg daily. REVIEW OF SYSTEMS: Review of systems as mentioned in the history of present illness. Denied any unusual headaches or visual disturbances. No nausea, vomiting. No urinary or bowel symptomatology. No unusual leg edema. FAMILY HISTORY: Family history is noncontributory. SOCIAL HISTORY: He is a former smoker and former alcohol user. Retired teacher. Lives locally with his . PHYSICAL EXAMINATION: He is presently in the intensive care unit, sitting up in bed, generally alert, pleasant, and does not appear to be in any acute distress. States he feels better this morning than yesterday evening. His last temperature was 99 axillary, pulse of 81, slightly irregular, respirations 22, blood pressure 147/84 and he is 96% saturated on 50% FiO2. Head and neck is unremarkable, is atraumatic. Extraocular movements intact. Neck is not stiff. No definite adenopathy or thyromegaly detected in the neck. Lungs reveal some crepitation at the right base and mildly diminished, but no wheezing heard. Heart tones were somewhat irregular without definitive murmur, rubs appreciated. Abdomen is soft and nontender. Mildly obese. Extremities revealed some grade 1 edema and stasis changes. Neurologically, he is alert and oriented, moving all extremities without focal deficits noted. LABORATORY VALUES: Laboratory values revealed initial white count of 13.9 and actually has increased to 16.6, hemoglobin this morning is 14 3, and platelet count is 106. Sodium is 142, potassium 4.4, CO2 content 20, BUN of 27 with creatinine 1.17, giving him a GFR of 56, stage 3 chronic renal failure. His blood sugar this morning is 150. Last lactic acid level was 2.8 yesterday late last night. Total bilirubin was 2.2, but other liver function tests were normal with an albumin of 4.1. Procalcitonin was 0.07. Influenza A and B were negative. Chest x-ray from yesterday appears to reveal a right lower lobe pneumonia and actually somewhat also on the left side being bilateral. His EKG revealed what is called undetermined rhythm, but likely atrial fibrillation with wide-complex rightward axis. Overall, this gentleman is an 88-year-old white male with acute respiratory distress, acute on chronic respiratory failure requiring BiPAP and ICU admission with x-ray show an primarily right lower lobe, but also bilateral lower lobe infiltrates/pneumonia, community-acquired, with multiple past medical history as related above, comorbidities of his coronary artery disease, previous aortic valve disease along with his other listed medical problems. PLAN: At this time, antibiotics have been initiated. Consult with pulmonary Medicine and [facility] here in the ICU as discussed with the patient and staff this morning. Can mostly resume his previous home medications and further recommendations and treatment pending clinical response and results of above. MMODL / IJN: [id number] /
--- NOTE | 2018-11-07 09:42 | XR ---
EXAMINATION TYPE: XR chest 1V portable DATE OF EXAM: 11/07/2018 COMPARISON: 11/07/2018 HISTORY: Shortness of breath TECHNIQUE: Single frontal view of the chest is obtained. FINDINGS: Bilateral consolidation and pleural effusion. Cardiomegaly with postoperative change and c ardiac device. No pneumothorax. Diffuse interstitial pattern. Atherosclerotic change aorta. Rib defor mities on the right are stable. IMPRESSION: 1. Findings suggestive of bilateral infiltrate and pleural effusion correlate for CHF otherwise consi viola pneumonia. Findings are stable.
[2018-11-07 10:26] LABS: Appearance,Urine Clear (Clear); Bilirubin,Urine Negative (Negative); Blood,Urine Moderate (Negative); Color,Urine Yellow; Glucose,Urine (UA) Negative (Negative); Ketones,Urine Negative (Negative); Leukocyte Esterase,Urine Negative (Negative); Mucus,Urine Rare /hpf; Nitrite,Urine Negative (Negative); PH, Urine 5.5 (5.0-8.0); Protein,Urine 1+ (Negative); RBC,Urine 46 /hpf (0-5); Specific Gravity,Urine 1.042 (1.001-1.035); Urobilinogen,Urine <2.0 mg/dL (<2.0)
[2018-11-07 10:36] LABS: Band Neutrophils % 7 %; Lymphocytes # (M) 0.17 k/uL (1.0-4.8); Metamyelocytes # (M) 0.33 k/uL (0); Metamyelocytes % 2 %; Monocytes # (M) 1.16 k/uL (0-1.0); Neutrophils % (M) 84 %; Nucleated Red Blood Cells 0 /100 WBC (0-0); Total Cells Counted 200
--- NOTE | 2018-11-07 11:53 | P.CRDCN ---
History of Present Illness Consult date: 11/07/18 Chief complaint: Shortness of breath History of present illness: This is a pleasant 88-year-old gentleman with a past medical history significant for coronary artery disease and prior coronary artery bypass grafting in 1999, the details are unknown at this point, ischemic cardiomyopathy, status post AICD, chronic atrial fibrillation maintaining oral anticoagulation on Coumadin, valvular heart disease and status post aortic valve replacement, as well as multiple comorbid conditions, presented to the hospital complaining of increasing in the shortness of breath. The patient overall is a poor historian. He stated that for the last several weeks, he has been more short of breath and more congested compared to before and for the last few days he has been coughing with small amount of blood in the cough. He was seen by his doctor in the office and the dose of Lasix was increased and after that he felt better for few days only but then the congestion and shortness of breath have gotten worse. Denies any fever or chills. He stated that he did develop lower extremities edema. On examination he does have pitting edema in both legs. Beside that, the patient stated that he was experiencing chest tightness. He was feeling very weak and very tired. The patient stated that he was compliant with all of his medications and also he was compliant with his diet. The patient underwent an extensive workup including a chest x-ray which showed findings consistent with CHF with possible bilateral pneumonia and also bilateral pleural effusion. He underwent a computed tomography scan of the chest and that showed no evidence of PE. The blood work overall came in to be unremarkable beside mildly abnormal troponin and GFR around 54. The EKG showed underlying atrial fibrillation with wide-complex rhythm. The troponin came in to be within normal limits. The hemoglobin and platelets are within normal limits. On physical examination, he does have bilateral pedal edema and also he does have crackles in both lung gabriel. No PNP was ordered. Currently the patient is on Lasix at 40 mg 3 times a day. Past Medical History Past Medical History: Coronary Artery Disease (CAD), Cancer, Chest Pain / Angina, GERD/Reflux, Hyperlipidemia, Hypertension, Memory Impairment, Myocardial Infarction (ND), Osteoarthritis (OA), Prostate Disorder, Seizure Disorder, Thyroid Disorder Additional Past Medical History / Comment(s): pt very [facility] [place] even with racquel hearing aids. per past medical : mi,varicose veins,bronchitis,diverticulosis, leakage of urine, uti,osteoporosis, skin [id number],"arrythmia"RLS. Last Myocardial Infarction Date:: 1994 History of Any Multi-Drug Resistant Organisms: None Reported Past Surgical History: AICD, Cardiac Ablation, Coronary Bypass/CABG, Heart Catheterization, Hernia Repair, Orthopedic Surgery, Pacemaker, Tonsillectomy Additional Past Surgical History / Comment(s): valve replacement sx AND A REDO SX.rt knee arthroscopy, repaired detatched retina x2, racquel cataracts, skin cancer removal from the back of neck Past Anesthesia/Blood Transfusion Reactions: Motion Sickness Additional Past Anesthesia/Blood Transfusion Reaction / Comment(s): "versed causes hallucinations" Type of Cardiac Device: Permanent Pacemaker, AICD Device Placement Date:: Past Psychological History: No Psychological Hx Reported Smoking Status: Former smoker Past Alcohol Use History: None Reported Additional Past Alcohol Use History / Comment(s): smoked x 20 years, 1/2 ppd, quit 1970 Past Drug Use History: None Reported - Past Family History Father Family Medical History: CVA/TIA Mother Family Medical History: COPD Additional Family Medical History / Comment(s): from chf at age 98 Medications and Allergies Home Medications Medication Instructions Recorded Confirmed Type Cholecalciferol [Vitamin D3] 1,000 unit PO DAILY 01/06/14 11/06/18 History Furosemide [Lasix] 20 mg PO DAILY 01/06/14 11/06/18 History Isosorbide Mononitrate [Imdur] 60 mg PO DAILY 01/06/14 11/06/18 History Omeprazole [PriLOSEC] 20 mg PO AC-BRKFST 01/06/14 11/06/18 History Potassium Chloride [Klor-Con 20] 20 meq PO DAILY 01/06/14 11/06/18 History Tamsulosin [Flomax] 0.4 mg PO 01/06/14 11/06/18 History Vit A,C & E/Lutein/Minerals 1 tab PO 01/06/14 11/06/18 History [Ocuvite Tablet] Aspirin EC [Ecotrin] 81 mg PO DAILY 01/05/16 11/06/18 History Levothyroxine Sodium [Synthroid] 88 mcg PO DAILY 01/05/16 11/06/18 History Atenolol [Tenormin] 12.5 mg PO DAILY 03/15/17 11/06/18 History Atorvastatin [Lipitor] 80 mg PO DAILY 03/15/17 11/06/18 History Vitamin B Complex 1 cap PO DAILY 03/15/17 11/06/18 History Ferrous Sulfate [Iron (65 MG 325 mg PO DAILY 11/06/18 11/06/18 History Elemental)] Losartan [Cozaar] 25 mg PO DAILY 11/06/18 11/06/18 History Sertraline [Zoloft] 25 mg PO HS 11/06/18 11/06/18 History Warfarin [Coumadin] 5 mg PO DAILY 11/06/18 11/06/18 History Allergies Allergy/AdvReac Type Severity Reaction Status Date / Time codeine Allergy Rash/Hives Verified 11/06/18 17:23 midazolam HCl [From Versed] Allergy Confusion Verified 11/06/18 17:23 Penicillins Allergy Rash/Hives Verified 11/06/18 17:23 Sulfa (Sulfonamide Allergy Rash/Hives Verified 11/06/18 17:23 Antibiotics) deseryl Allergy Unknown Uncoded 03/10/18 10:23 Physical Exam Vitals: Vital Signs Temp Pulse Resp BP Pulse Ox 11/07/18 11:00 64 19 116/63 94 L 11/07/18 10:00 60 23 144/69 93 L 11/07/18 09:00 84 12 127/71 96 11/07/18 08:00 98.0 F 86 23 128/68 95 11/07/18 06:00 81 22 147/84 96 11/07/18 05:00 87 22 147/84 95 11/07/18 04:00 90 23 147/84 95 11/07/18 03:00 86 21 147/84 95 11/07/18 02:00 89 20 147/84 95 11/07/18 01:00 93 22 147/84 94 L 11/07/18 00:00 99.0 F 98 23 147/84 95 11/06/18 23:21 96 24 147/84 96 11/06/18 23:00 99 26 H 147/84 96 11/06/18 22:30 114 H 36 H 147/84 94 L 11/06/18 22:20 121 H 32 H 147/84 93 L 11/06/18 22:10 96 26 H 147/84 96 11/06/18 22:00 93 24 147/84 97 11/06/18 21:50 96 25 H 147/84 96 11/06/18 21:40 96 24 147/84 96 11/06/18 21:30 97 26 H 96 11/06/18 21:20 109 H 37 H 97 11/06/18 21:10 96 27 H 97 11/06/18 21:03 21 154/96 97 11/06/18 20:00 158/82 11/06/18 19:50 158/82 11/06/18 19:40 100 19 158/82 11/06/18 19:38 99.8 F H 20 11/06/18 19:30 87 22 158/82 11/06/18 19:20 97 28 H 158/82 100 11/06/18 19:17 93 19 158/82 99 11/06/18 19:10 97 26 H 158/82 100 11/06/18 19:00 96 28 H 163/80 100 11/06/18 18:50 118 H 21 163/80 98 11/06/18 18:40 97 26 H 163/80 11/06/18 18:30 97 15 129/81 100 11/06/18 18:20 96 12 129/81 100 11/06/18 18:10 96 24 129/81 100 11/06/18 18:00 99.8 F H 101 H 26 H 164/88 100 11/06/18 17:50 92 8 L 164/88 100 11/06/18 17:40 101 H 17 164/88 98 11/06/18 17:30 98 29 H 185/99 11/06/18 17:21 103 H 24 185/99 99 11/06/18 17:20 106 H 18 185/99 99 11/06/18 17:10 191/103 100 11/06/18 17:08 97.4 F L 105 H 22 191/103 92 L 11/06/18 17:00 91 L 11/06/18 16:59 91 L Intake and Output 11/06/18 11/07/18 11/07/18 22:59 06:59 14:59 Intake Total 2550 800 420 Output Total 225 0 660 Balance 2325 800 -240 Intake: IV 2550 800 420 Azithromycin 500 mg In 250 Sodium Chloride 0.9% 250 ml @ 250 mls/hr IVPB ONCE STA Rx#:[id number] Magnesium Sulfate-D5w Pmx 100 1 gm In Dextrose/Water 1 100ml.bag @ 100 mls/hr IVPB Q1H ADRIENNE Rx#: [id number] Sodium Chloride 0.9% 1, 300 800 320 000 ml @ 20 mls/hr IV . Q24H ADRIENNE Rx#:[id number] Sodium Chloride 0.9% 2, 2000 000 ml @ 999 mls/hr IV . Q2H1M ONE Rx#:[id number] Output: Urine 225 0 660 Other: Voiding Method Urinal Urinal Weight 110.178 kg 91.9 kg - Constitutional General appearance: mild distress - Respiratory Respiratory: bilateral: rhonchi - Cardiovascular Rhythm: irregularly irregular Heart sounds: normal: S1, S2 Abnormal Heart Sounds: systolic murmur Results 11/07/18 07:11 11/07/18 07:11 Cardiac Enzymes 11/06/18 11/06/18 11/07/18 Range/Units 17: 17: 07:11 AST 38 33 (17-59) U/L CK-MB (CK-2) 3.2 H (0.0-2.4) ng/mL Troponin I <0.012 (0.000-0.034) ng/mL Coagulation 11/06/18 Range/Units 17:09 PT 19.3 H (9.0-12.0) sec APTT 29.4 (22.0-30.0) sec CBC 11/06/18 11/07/18 Range/Units 17:09 07:11 WBC 13.9 H 16.5 H (3.8-10.6) k/uL RBC 4.91 4.89 (4.30-5.90) m/uL Hgb 14.8 14.3 (13.0-17.5) gm/dL Hct 45.2 44.8 (39.0-53.0) % Plt Count 140 L 106 L (150-450) k/uL Comprehensive Metabolic Panel 11/06/18 11/07/18 Range/Units 17:09 07:11 Sodium 142 142 (137-145) mmol/L Potassium 3.9 4.4 (3.5-5.1) mmol/L Chloride 108 H 109 H (98-107) mmol/L Carbon Dioxide 21 L 20 L (22-30) mmol/L BUN 28 H 27 H (9-20) mg/dL Creatinine 1.14 1.17 (0.66-1.25) mg/dL Glucose 189 H 150 H (74-99) mg/dL Calcium 9.8 9.0 (8.4-10.2) mg/dL AST 38 33 (17-59) U/L ALT 36 30 (21-72) U/L Alkaline Phosphatase 134 H 88 (38-126) U/L Total Protein 8.0 6.7 (6.3-8.2) g/dL Albumin 4.9 4.1 (3.5-5.0) g/dL Current Medications Generic Name Dose Route Start Last Admin Trade Name Freq PRN Reason Stop Dose Admin Acetaminophen 650 mg 11/06/18 18:42 11/07/18 08:49 Tylenol Tab PO 650 mg Q4HR PRN Administration Fever and/or Mild Pain Albuterol/Ipratropium 3 ml 11/07/18 09:00 Duoneb 0.5 Mg-3 Mg/3 Ml Soln INHALATION RT-QID PRN Shortness Of Breath Or Wheezing Alprazolam 0.25 mg 11/06/18 21:39 11/07/18 08:50 Xanax PO 0.25 mg TID PRN Administration Anxiety Aspirin 81 mg 11/07/18 09:00 11/07/18 08:42 Aspirin PO 81 mg DAILY ADRIENNE Administration Atenolol 12.5 mg 11/07/18 09:00 11/07/18 08:42 Tenormin PO 12.5 mg DAILY ADRIENNE Administration Atorvastatin Calcium 80 mg 11/07/18 09:00 11/07/18 08:42 Lipitor PO 80 mg DAILY ADRIENNE Administration Cholecalciferol 1,000 unit 11/07/18 09:00 11/07/18 08:42 Vitamin D3 (25 Mcg = 1000 Iu) PO 1,000 unit DAILY ADRIENNE Administration Ferrous Sulfate 325 mg 11/07/18 09:00 11/07/18 08:42 Feosol PO 325 mg DAILY ADRIENNE Administration Furosemide 40 mg 11/07/18 09:00 11/07/18 09:20 Lasix IV 40 mg Q12HR ADRIENNE Administration Sodium Chloride 1,000 mls @ 20 mls/hr 11/06/18 18:15 11/07/18 06:43 Saline 0.9% IV 100 mls/hr .Q24H ADRIENNE Administration Isosorbide Mononitrate 60 mg 11/07/18 09:00 11/07/18 08:42 Imdur PO 60 mg DAILY ADRIENNE Administration Levothyroxine Sodium 88 mcg 11/07/18 06:30 11/07/18 06:29 Synthroid PO 88 mcg DAILY@0630 ADRIENNE Administration Losartan Potassium 25 mg 11/07/18 09:00 11/07/18 08:44 Cozaar PO 25 mg DAILY ADRIENNE Administration Miscellaneous Information 1 each 11/07/18 08:29 Magnesium Per Protocol MISCELLANE DAILY PRN Per Protocol Protocol Naloxone HCl 0.2 mg 11/06/18 18:42 Narcan IV Q2M PRN Opioid Reversal Naloxone HCl 0.2 mg 11/07/18 05:49 Narcan IV Q2M PRN Opioid Reversal Pantoprazole Sodium 40 mg 11/07/18 07:30 11/07/18 06:29 Protonix PO 40 mg AC-BRKFST ADRIENNE Administration Potassium Chloride 20 meq 11/07/18 09:00 11/07/18 08:42 K-Dur 20 PO 20 meq DAILY ADRIENNE Administration Sertraline HCl 25 mg 11/06/18 21:38 11/06/18 22:02 Zoloft PO 25 mg HS ADRIENNE Administration Tamsulosin HCl 0.4 mg 11/06/18 21:45 11/07/18 00:47 Flomax PO Not Given HS ADRIENNE Warfarin Sodium 5 mg 11/07/18 18:00 Coumadin PO DAILY@1800 ADRIENNE Intake and Output 11/06/18 11/07/18 11/07/18 22:59 06:59 14:59 Intake Total 2550 800 420 Output Total 225 0 660 Balance 2325 800 -240 Intake: IV 2550 800 420 Azithromycin 500 mg In 250 Sodium Chloride 0.9% 250 ml @ 250 mls/hr IVPB ONCE STA Rx#:[id number] Magnesium Sulfate-D5w Pmx 100 1 gm In Dextrose/Water 1 100ml.bag @ 100 mls/hr IVPB Q1H ADRIENNE Rx#: [id number] Sodium Chloride 0.9% 1, 300 800 320 000 ml @ 20 mls/hr IV . Q24H ADRIENNE Rx#:[id number] Sodium Chloride 0.9% 2, 2000 000 ml @ 999 mls/hr IV . Q2H1M ONE Rx#:[id number] Output: Urine 225 0 660 Other: Voiding Method Urinal Urinal Weight 110.178 kg 91.9 kg 11/07/18 07:11 11/07/18 07:11 Assessment and Plan Assessment: Assessment #1 acute exacerbation of congestive heart failure secondary to systolic dysfunction #2 cardiomyopathy and status post AICD #3 severe underlying coronary artery disease and status post coronary revascularization #4 chronic atrial fibrillation on oral anticoagulation #5 valvular heart disease and status post aVR #6 multiple comorbid conditions Plan #1 continue the current dose of Lasix IV which is 40 mg twice a day #2 continue monitoring the kidney function as well as electrolytes #3 the patient is also covered for pneumonia. He is on antibiotics #4 obtain an echocardiogram was Doppler to establish LV function #5 obtain BNP #6 follow-up with the patient Thank you for allowing us participate in the care of the patient and we will continue following up with him
--- NOTE | 2018-11-07 12:57 | P.CNPUL ---
History of Present Illness Consult date: 11/07/18 Reason for consult: other (Acute hypoxic respiratory failure) Chief complaint: Shortness of breath History of present illness: This is an 88-year-old white male with history of coronary artery disease, previous CABG in 1999. Known history of ischemic cardiomyopathy, previous AICD placement, known history of chronic atrial fibrillation, valvular heart disease, previous aortic valve replacement, patient presented to the hospital last night complaining of few days' history of increased shortness of breath. Denies any fever, no chills, no hemoptysis, no chest pain. Patient was also noted to have increased swelling in his lower extremities. Chest x-ray upon arrival to the ER showed interstitial edema, possibility of pneumonia is not entirely ruled out, his pro-calcitonin level was normal. Patient was initially given fluid boluses for slightly elevated lactic acid, he was placed on BiPAP, however this morning he was switched to a nasal cannula, chest x-ray showed worsening interstitial edema, hence I recommended cutting down the IV fluid to KVO, and recommended diuresis with Lasix 40 mg IV push every 12 hours. The patient himself is an extremely poor historian. Most of the information was actually obtained from the chart. During my evaluation the patient was feeling better, breathing easier, although her chest x-ray was noted to be significantly worse compared to the admission chest x-ray. Echocardiogram was ordered, cardiology was consulted. CT of the chest showed no evidence of pulmonary embolism. There was however evidence of ascites, and mesenteric edema. Review of Systems Constitutional: Denies any fever no chills, no night sweats, no weight loss. No weakness, no fatigue, no malaise. HEENT: Denies any sore throat, no blurred vision, no vertigo, no tinnitus, no ear ache, no headaches. Respiratory: As noted in HPI, mostly cough and shortness of breath. Cardiac: Denies any chest pain, no palpitations, no diaphoresis, no syncope. GI: Denies any nausea vomiting abdominal pain melena or hematemesis. Genitourinary: Denies any dysuria frequency urgency or hematuria. Musculoskeletal denies any arthralgia or myalgia. Neurologic: Denies any symptoms of cold or heat intolerance, denies any polyuria, polydipsia, and polyphagia. Psychiatric denies any symptoms of active depression Hematologic denies any clotting bleeding or bruising. Past Medical History Past Medical History: Coronary Artery Disease (CAD), Cancer, Chest Pain / Angina, GERD/Reflux, Hyperlipidemia, Hypertension, Memory Impairment, Myocardial Infarction (OR), Osteoarthritis (OA), Prostate Disorder, Seizure Disorder, Thyroid Disorder Additional Past Medical History / Comment(s): pt very [place] even with racquel hearing aids. per past medical : mi,varicose veins,bronchitis,diverticulosis, leakage of urine, uti,osteoporosis, skin [id number],"arrythmia"RLS. Last Myocardial Infarction Date:: 1994 History of Any Multi-Drug Resistant Organisms: None Reported Past Surgical History: AICD, Cardiac Ablation, Coronary Bypass/CABG, Heart Catheterization, Hernia Repair, Orthopedic Surgery, Pacemaker, Tonsillectomy Additional Past Surgical History / Comment(s): valve replacement sx AND A REDO SX.rt knee arthroscopy, repaired detatched retina x2, racquel cataracts, skin cancer removal from the back of neck Past Anesthesia/Blood Transfusion Reactions: Motion Sickness Additional Past Anesthesia/Blood Transfusion Reaction / Comment(s): "versed causes hallucinations" Type of Cardiac Device: Permanent Pacemaker, AICD Device Placement Date:: Past Psychological History: No Psychological Hx Reported Smoking Status: Former smoker Past Alcohol Use History: None Reported Additional Past Alcohol Use History / Comment(s): smoked x 20 years, 1/2 ppd, quit 1970 Past Drug Use History: None Reported - Past Family History Father Family Medical History: CVA/TIA Mother Family Medical History: COPD Additional Family Medical History / Comment(s): from chf at age 98 Medications and Allergies Home Medications Medication Instructions Recorded Confirmed Type Cholecalciferol [Vitamin D3] 1,000 unit PO DAILY 01/06/14 11/06/18 History Furosemide [Lasix] 20 mg PO DAILY 01/06/14 11/06/18 History Isosorbide Mononitrate [Imdur] 60 mg PO DAILY 01/06/14 11/06/18 History Omeprazole [PriLOSEC] 20 mg PO AC-BRKFST 01/06/14 11/06/18 History Potassium Chloride [Klor-Con 20] 20 meq PO DAILY 01/06/14 11/06/18 History Tamsulosin [Flomax] 0.4 mg PO HS 01/06/14 11/06/18 History Vit A,C & E/Lutein/Minerals 1 tab PO HS 01/06/14 11/06/18 History [Ocuvite Tablet] Aspirin EC [Ecotrin] 81 mg PO DAILY 01/05/16 11/06/18 History Levothyroxine Sodium [Synthroid] 88 mcg PO DAILY 01/05/16 11/06/18 History Atenolol [Tenormin] 12.5 mg PO DAILY 03/15/17 11/06/18 History Atorvastatin [Lipitor] 80 mg PO DAILY 03/15/17 11/06/18 History Vitamin B Complex 1 cap PO DAILY 03/15/17 11/06/18 History Ferrous Sulfate [Iron (65 MG 325 mg PO DAILY 11/06/18 11/06/18 History Elemental)] Losartan [Cozaar] 25 mg PO DAILY 11/06/18 11/06/18 History Sertraline [Zoloft] 25 mg PO HS 11/06/18 11/06/18 History Warfarin [Coumadin] 5 mg PO DAILY 11/06/18 11/06/18 History Allergies Allergy/AdvReac Type Severity Reaction Status Date / Time codeine Allergy Rash/Hives Verified 11/06/18 17:23 midazolam HCl [From Versed] Allergy Confusion Verified 11/06/18 17:23 Penicillins Allergy Rash/Hives Verified 11/06/18 17:23 Sulfa (Sulfonamide Allergy Rash/Hives Verified 11/06/18 17:23 Antibiotics) deseryl Allergy Unknown Uncoded 03/10/18 10:23 Physical Exam Vitals: Vital Signs Temp Pulse Resp BP Pulse Ox 11/07/18 11:00 64 19 116/63 94 L 11/07/18 10:00 60 23 144/69 93 L 11/07/18 09:00 84 12 127/71 96 11/07/18 08:00 98.0 F 86 23 128/68 95 11/07/18 06:00 81 22 147/84 96 11/07/18 05:00 87 22 147/84 95 11/07/18 04:00 90 23 147/84 95 11/07/18 03:00 86 21 147/84 95 11/07/18 02:00 89 20 147/84 95 11/07/18 01:00 93 22 147/84 94 L 11/07/18 00:00 99.0 F 98 23 147/84 95 11/06/18 23:21 96 24 147/84 96 11/06/18 23:00 99 26 H 147/84 96 11/06/18 22:30 114 H 36 H 147/84 94 L 11/06/18 22:20 121 H 32 H 147/84 93 L 11/06/18 22:10 96 26 H 147/84 96 11/06/18 22:00 93 24 147/84 97 11/06/18 21:50 96 25 H 147/84 96 11/06/18 21:40 96 24 147/84 96 11/06/18 21:30 97 26 H 96 11/06/18 21:20 109 H 37 H 97 11/06/18 21:10 96 27 H 97 11/06/18 21:03 21 154/96 97 11/06/18 20:00 158/82 11/06/18 19:50 158/82 11/06/18 19:40 100 19 158/82 11/06/18 19:38 99.8 F H 20 11/06/18 19:30 87 22 158/82 11/06/18 19:20 97 28 H 158/82 100 11/06/18 19:17 93 19 158/82 99 11/06/18 19:10 97 26 H 158/82 100 11/06/18 19:00 96 28 H 163/80 100 11/06/18 18:50 118 H 21 163/80 98 11/06/18 18:40 97 26 H 163/80 11/06/18 18:30 97 15 129/81 100 11/06/18 18:20 96 12 129/81 100 11/06/18 18:10 96 24 129/81 100 11/06/18 18:00 99.8 F H 101 H 26 H 164/88 100 11/06/18 17:50 92 8 L 164/88 100 11/06/18 17:40 101 H 17 164/88 98 11/06/18 17:30 98 29 H 185/99 11/06/18 17:21 103 H 24 185/99 99 11/06/18 17:20 106 H 18 185/99 99 11/06/18 17:10 191/103 100 11/06/18 17:08 97.4 F L 105 H 22 191/103 92 L 11/06/18 17:00 91 L 11/06/18 16:59 91 L Intake and Output 11/06/18 11/07/18 11/07/18 22:59 06:59 14:59 Intake Total 2550 800 420 Output Total 225 0 660 Balance 2325 800 -240 Intake: IV 2550 800 420 Azithromycin 500 mg In 250 Sodium Chloride 0.9% 250 ml @ 250 mls/hr IVPB ONCE STA Rx#:[id number] Magnesium Sulfate-D5w Pmx 100 1 gm In Dextrose/Water 1 100ml.bag @ 100 mls/hr IVPB Q1H ADRIENNE Rx#: [id number] Sodium Chloride 0.9% 1, 300 800 320 000 ml @ 20 mls/hr IV . Q24H ADRIENNE Rx#:[id number] Sodium Chloride 0.9% 2, 2000 000 ml @ 999 mls/hr IV . Q2H1M ONE Rx#:[id number] Output: Urine 225 0 660 Other: Voiding Method Urinal Urinal Weight 110.178 kg 91.9 kg Physical Exam: Revealed an 88-year-old white male, on nasal cannula, in no distress, he was on BiPAP overnight. Head: Atraumatic, normocephalic, moist mucous membranes, HEENT:[Neck is supple.] [No neck masses.] [No thyromegaly.] [No JVD.] PERRLA, EOMI, no icterus. No JVD. Chest: [Crackles and rhonchi bilaterally mostly at the right base. No wheezes noted, symmetrical chest expansion, no chest wall tenderness, Cardiac Exam: [Irregular irregular rhythm. Normal S1 and S2, no S3 gallop, 2/6 systolic murmur thought the precordium. Abdomen: [Soft, nontender, no megaly, no rebound, no guarding, normal bowel sounds.] Extremities: [No clubbing, 2+ bipedal edema, chronic venous stasis changes noted bilaterally in lower extremities. Neurological Exam: [No focal neurologic deficit.] However the patient is noted to be at times confused clearly has some underlying cognitive dysfunction. Psychiatric: Normal mood, affect, poor mental status. And poor mentation and r ecall. Extremities no rashes except for chronic venous stasis noted about both lower extremities. Lymphatics: No lymphadenopathy Results - Laboratory Findings CBC and BMP: 11/07/18 07:11 11/07/18 07:11 PT/INR, D-dimer PT 19.3 sec (9.0-12.0) H 11/06/18 17:09 INR 2.0 (<1.2) H 11/06/18 17:09 Abnormal lab findings: Abnormal Labs 11/06/18 11/06/18 11/06/18 17:09 17:09 17:09 WBC 13.9 H Plt Count 140 L Neutrophils # 11.9 H Neutrophils # (Manual) Lymphocytes # (Manual) Monocytes # (Manual) Metamyelocytes # (Man) PT INR Chloride 108 H Carbon Dioxide 21 L BUN 28 H Glucose 189 H POC Glucose (mg/dL) Plasma Lactic Acid Julio Total Bilirubin 2.0 H Alkaline Phosphatase 134 H CK-MB (CK-2) 3.2 H Ur Specific [place] Urine Protein Urine Blood Urine RBC Urine Mucus 11/06/18 11/06/18 11/06/18 17:09 17:09 20:06 WBC Plt Count Neutrophils # Neutrophils # (Manual) Lymphocytes # (Manual) Monocytes # (Manual) Metamyelocytes # (Man) PT 19.3 H INR 2.0 H Chloride Carbon Dioxide BUN Glucose POC Glucose (mg/dL) 133 H Plasma Lactic Acid Julio 2.9 H* Total Bilirubin Alkaline Phosphatase CK-MB (CK-2) Ur Specific [place] Urine Protein Urine Blood Urine RBC Urine Mucus 11/06/18 11/07/18 11/07/18 21:10 07:11 07:11 WBC 16.5 H Plt Count 106 L Neutrophils # Neutrophils # (Manual) 15.00 H Lymphocytes # (Manual) 0.17 L Monocytes # (Manual) 1.16 H Metamyelocytes # (Man) 0.33 H PT INR Chloride 109 H Carbon Dioxide 20 L BUN 27 H Glucose 150 H POC Glucose (mg/dL) Plasma Lactic Acid Julio 2.8 H* Total Bilirubin 2.2 H Alkaline Phosphatase CK-MB (CK-2) Ur Specific [place] Urine Protein Urine Blood Urine RBC Urine Mucus 11/07/18 09:30 WBC Plt Count Neutrophils # Neutrophils # (Manual) Lymphocytes # (Manual) Monocytes # (Manual) Metamyelocytes # (Man) PT INR Chloride Carbon Dioxide BUN Glucose POC Glucose (mg/dL) Plasma Lactic Acid Julio Total Bilirubin Alkaline Phosphatase CK-MB (CK-2) Ur Specific [place] 1.042 H Urine Protein 1+ H Urine Blood Moderate H Urine RBC 46 H Urine Mucus Rare H - Diagnostic Findings Chest x-ray: image reviewed (As noted in HPI.) Assessment and Plan Assessment: Impression: 1 acute systolic congestive heart failure 2 acute hypoxic respiratory failure secondary to pulmonary edema 3 suspect underlying cardiomyopathy and previous AICD placement. 4 strongly doubt pneumonia based on the clinical history, findings, and normal pro calcitonin level. 5 history of valvular heart disease and previous AVR. 6 chronic atrial fibrillation 7 history of complex seizure disorder 8 history of hypothyroidism 9 history of restless leg syndrome 10 history of benign prostatic hypertrophy. 11 history of cellulitis involving left lower extremity secondary to gram- positive infection Recommendation: Fully agree with the present treatment plan including diuretics, presently on Lasix 40 mg IV push every 12 hours, we will continue to monitor his electrolytes and renal profile, we'll continue antibiotics empirically for now, again considering his pro calcitonin level being normal, makes pneumonia very unlikely. We'll assess his echocardiogram and review, continue to monitor closely in the ICU. Recommended placement of a Cardoza catheter. And recommended echocardiogram and cardiology consultation. All his meds were reviewed, chest x-ray was reviewed, and will follow closely. Time with Patient: Greater than 30
--- NOTE | 2018-11-07 13:06 | CDI ---
Documentation Clarification Form Date: 11/07/2018 12:19:06 PM From: Haydee Giordano RN, CCDS Admit Date: 11/06/2018 6:14:00 PM Patient Name: Ha Guzman Visit Number: [id number] Discharge Date: ATTENTION: The Clinical Documentation Specialists (CDI) and [facility] Coding Staff appreciate your assistance in clarifying documentation. Please respond to the clarification below the line at the bottom and electronically sign. The CDI & [facility] Coding staff will review the response and follow-up if needed. Please note: Queries are made part of the Legal Health Record. If you have any questions, please contact the author of this message via ITS. Dr. Ha Velazco The patient presented with complaints of difficulty breathing. History/Risk Factors: Coronary artery disease, Chronic Atrial Fibrillation, Hypertension, CHF, Former smoker Clinical Indicators: 88 year-old male with complaints of difficult breathing, productive cough with bloody sputum. Lungs: patient has audible rales at bilateral bases, he has tachypnea with signs of moderate respiratory distress, some wheezing. Vital Signs: 191/103 105 22 974, 185/99 103 24 Chest x-ray: a new airspace pneumonia right lower lobe. CT scan: Bilateral lower lobe pneumonia and atelectasis, Reflux into the inferior vena cava consistent with CHF WBC 13.9, 16.5 Lactic acid: 2.9 Other Clinical Indicators: 11/06/18 18:34 ED reevaluation: Sepsis identified once chest x-ray was read. Treatment: ICU/Telemetry monitoring IV Fluid bolus Lasix IV Duoneb's per orders Zithromycin IV X1 Rocephin IV X1 In your professional opinion, please clarify if these findings signify one of the following conditions, whether the condition is POA, and cause, if known: Condition Sepsis ruled in Sepsis ruled out Other, please specify Unable to determine SIRS Criteria (2 or more of the following may indicate SIRS): -Temperature < 96.8F (36C) or > 101.0F (38.3C) -Heart Rate > 90 bpm -Respiratory Rate > 20 breaths/min or PaCO2 < 32 mmHg -White Blood Cell Count > 12,000 or < 4,000 cells/mm3 or > 10% bands -Lactate >2.0 mmol/L (>4.0 is equivalent to septic shock) (Last Revision: September 2017) RLL community acquired pneumonia with sepsis POA. RRD. MTDD
[2018-11-07] MEDS: IPRATROPIUM-ALBUTEROL 3 ML NEB INHALATION PRN (15:17)
[2018-11-07] MEDS: WARFARIN 5 MG TAB PO SCH (18:16)
[2018-11-07] MEDS: BENZOCAINE/MENTHOL LOZENG 1 EACH LOZENGE MUCOUS MEM PRN (20:15)
[2018-11-07] MEDS: SERTRALINE 50 MG TAB PO SCH (22:05)
[2018-11-07] MEDS ORDERED: ARTIFICIAL TEARS-HYPROMELLOSE DROPS 15 ML BTL BOTH EYES PRN (22:57)
[2018-11-08] MEDS: ACETAMINOPHEN TAB 325 MG TAB PO PRN ×2 (01:49→22:16)
[2018-11-08] MEDS: ALPRAZolam 0.25 MG TAB PO PRN ×2 (01:53→22:17)
[2018-11-08 05:42] LABS: INR 2.4 (<1.2); Prothrombin Time 23.5 sec (9.0-12.0)
[2018-11-08 05:48] LABS: Calcium 8.5 mg/dL (8.4-10.2); Magnesium 2.2 mg/dL (1.6-2.3); Phosphorus 2.6 mg/dL (2.5-4.5); Potassium 3.9 mmol/L (3.5-5.1)
[2018-11-08 05:55] LABS: Basophils % (A) 0 %; Eosinophils # (A) 0.1 k/uL (0-0.7); Eosinophils % (A) 1 %; HCT 36.1 % (39.0-53.0); HGB 11.9 gm/dL (13.0-17.5); Lymphocytes # (A) 0.7 k/uL (1.0-4.8); Lymphocytes % (A) 5 %; MCHC 33.1 g/dL (31.0-37.0); MCV 90.8 fL (80.0-100.0); Mean Platelet Volume 7.6; Monocytes # (A) 0.7 k/uL (0-1.0); Monocytes % (A) 6 %; Neutrophils # (A) 11.1 k/uL (1.3-7.7); Neutrophils % (A) 87 %; Platelet Count 109 k/uL (150-450); RBC 3.98 m/uL (4.30-5.90); RDW 14.4 % (11.5-15.5); WBC 12.7 k/uL (3.8-10.6)
[2018-11-08] MEDS ORDERED: Potassium Replacement Protocol 1 EACH MISC MISCELLANE PRN (06:11)
[2018-11-08] MEDS ORDERED: POTASSIUM CHLORIDE ER 20 MEQ TAB.ER PO SCH (07:00)
--- NOTE | 2018-11-08 07:10 | P.PN ---
Subjective Progress Note Date: 11/08/18 Principal diagnosis: Shortness of breath This is a pleasant 88-year-old gentleman with a past medical history significant for coronary artery disease and prior coronary artery bypass grafting in 1999, the details are unknown at this point, ischemic cardiomyopathy, status post AI CD, chronic atrial fibrillation maintaining oral anticoagulation on Coumadin, valvular heart disease and status post aortic valve replacement, as well as multiple comorbid conditions, presented to the hospital complaining of increasing in the shortness of breath. The patient overall is a poor historian. He stated that for the last several weeks, he has been more short of breath and more congested compared to before and for the last few days he has been coughing with small amount of blood in the cough. He was seen by his doctor in the office and the dose of Lasix was increased and after that he felt better for few days only but then the congestion and shortness of breath have gotten worse. Denies any fever or chills. He stated that he did develop lower extremities edema. On examination he does have pitting edema in both legs. Beside that, the patient stated that he was experiencing chest tightness. He was feeling very weak and very tired. The patient stated that he was compliant with all of his medications and also he was compliant with his diet. The patient underwent an extensive workup including a chest x-ray which showed findings consistent with CHF with possible bilateral pneumonia and also bilateral pleural effusion. He underwent a computed tomography scan of the chest and that showed no evidence of PE. The blood work overall came in to be unremarkable beside mildly abnormal troponin and GFR around 54. The EKG showed underlying atrial fibrillation with wide-complex rhythm. The troponin came in to be within normal limits. The hemoglobin and platelets are within normal limits. On physical examination, he does have bilateral pedal edema and also he does have crackles in both lung gabriel. On follow-up with the patient today, November 082018, he is feeling better in term of shortness of breath. No chest pain or chest discomfort. Hemodynamically he seems to be stable at this point. He is not requiring any vasopressors. He continues to be in atrial fibrillation with controlled heart rate. He is on oral anticoagulation with Coumadin. He has been diuresing well on the current dose of Lasix IV. The BMP was checked yesterday and came in to be around 15,000. An echocardiogram was performed and we'll follow-up on that. He has been also experiencing blood with cough. Objective - Vital Signs Vital signs: Vital Signs Temp 98.3 F 11/08/18 04:00 Pulse 59 L 11/08/18 06:00 Resp 25 H 11/08/18 06:00 BP 132/82 11/08/18 06:00 Pulse Ox 94 L 11/08/18 06:00 Intake & Output 11/07/18 11/08/18 11/08/18 18:59 06:59 18:59 Intake Total 840 900 Output Total 1360 1145 Balance -520 -245 Weight 92.3 kg Intake: IV 640 240 Magnesium Sulfate-D5w Pmx 200 1 gm In Dextrose/Water 1 100ml.bag @ 100 mls/hr IVPB Q1H ADRIENNE Rx#: [id number] Sodium Chloride 0.9% 1, 440 240 000 ml @ 20 mls/hr IV . Q24H ADRIENNE Rx#:[id number] Oral 200 660 Output: Urine 1360 1145 Other: Voiding Method Indwelling Catheter Indwelling Catheter # Bowel Movements 1 - Respiratory Respiratory: bilateral: rales - Cardiovascular Rhythm: irregularly irregular Heart sounds: normal: S1, S2 Abnormal Heart Sounds: Present: systolic murmur - Labs CBC & Chem 7: 11/08/18 05:09 11/08/18 05:09 Labs: Abnormal Lab Results - Last 24 Hours (Table) 11/06/18 11/07/18 11/07/18 Range/Units 21:10 07:11 07:11 WBC 16.5 H (3.8-10.6) k/uL RBC (4.30-5.90) m/uL Hgb (13.0-17.5) gm/dL Hct (39.0-53.0) % Plt Count 106 L (150-450) k/uL Neutrophils # (1.3-7.7) k/uL Neutrophils # (Manual) 15.00 H (1.3-7.7) k/uL Lymphocytes # (1.0-4.8) k/uL Lymphocytes # (Manual) 0.17 L (1.0-4.8) k/uL Monocytes # (Manual) 1.16 H (0-1.0) k/uL Metamyelocytes # (Man) 0.33 H (0) k/uL PT (9.0-12.0) sec INR (<1.2) Chloride 109 H (98-107) mmol/L Carbon Dioxide 20 L (22-30) mmol/L BUN 27 H (9-20) mg/dL Creatinine (0.66-1.25) mg/dL Glucose 150 H (74-99) mg/dL Plasma Lactic Acid Julio 2.8 H* (0.7-2.0) mmol/L Total Bilirubin 2.2 H (0.2-1.3) mg/dL Ur Specific [place] (1.001-1.035) Urine Protein (Negative) Urine Blood (Negative) Urine RBC (0-5) /hpf Urine Mucus (None) /hpf 11/07/18 11/08/18 11/08/18 Range/Units 09:30 05:09 05:09 WBC 12.7 H (3.8-10.6) k/uL RBC 3.98 L (4.30-5.90) m/uL Hgb 11.9 L (13.0-17.5) gm/dL Hct 36.1 L (39.0-53.0) % Plt Count 109 L (150-450) k/uL Neutrophils # 11.1 H (1.3-7.7) k/uL Neutrophils # (Manual) (1.3-7.7) k/uL Lymphocytes # 0.7 L (1.0-4.8) k/uL Lymphocytes # (Manual) (1.0-4.8) k/uL Monocytes # (Manual) (0-1.0) k/uL Metamyelocytes # (Man) (0) k/uL PT (9.0-12.0) sec INR (<1.2) Chloride (98-107) mmol/L Carbon Dioxide (22-30) mmol/L BUN 36 H (9-20) mg/dL Creatinine 1.32 H (0.66-1.25) mg/dL Glucose 100 H (74-99) mg/dL Plasma Lactic Acid Julio (0.7-2.0) mmol/L Total Bilirubin (0.2-1.3) mg/dL Ur Specific [place] 1.042 H (1.001-1.035) Urine Protein 1+ H (Negative) Urine Blood Moderate H (Negative) Urine RBC 46 H (0-5) /hpf Urine Mucus Rare H (None) /hpf 11/08/18 Range/Units 05:09 WBC (3.8-10.6) k/uL RBC (4.30-5.90) m/uL Hgb (13.0-17.5) gm/dL Hct (39.0-53.0) % Plt Count (150-450) k/uL Neutrophils # (1.3-7.7) k/uL Neutrophils # (Manual) (1.3-7.7) k/uL Lymphocytes # (1.0-4.8) k/uL Lymphocytes # (Manual) (1.0-4.8) k/uL Monocytes # (Manual) (0-1.0) k/uL Metamyelocytes # (Man) (0) k/uL PT 23.5 H (9.0-12.0) sec INR 2.4 H (<1.2) Chloride (98-107) mmol/L Carbon Dioxide (22-30) mmol/L BUN (9-20) mg/dL Creatinine (0.66-1.25) mg/dL Glucose (74-99) mg/dL Plasma Lactic Acid Julio (0.7-2.0) mmol/L Total Bilirubin (0.2-1.3) mg/dL Ur Specific [place] (1.001-1.035) Urine Protein (Negative) Urine Blood (Negative) Urine RBC (0-5) /hpf Urine Mucus (None) /hpf Microbiology - Last 24 Hours (Table) 11/07/18 13:18 Gram Stain - Preliminary Sputum Sputum Culture - Preliminary 11/06/18 17:09 Blood Culture - Preliminary Blood No Growth after 24 hours Assessment and Plan Assessment: Assessment #1 acute exacerbation of congestive heart failure secondary to systolic dysfunction #2 cardiomyopathy and status post AICD #3 severe underlying coronary artery disease and status post coronary revascularization #4 chronic atrial fibrillation on oral anticoagulation #5 valvular heart disease and status post aVR #6 multiple comorbid conditions Plan #1 continue the current dose of Lasix IV which is 40 mg twice a day #2 continue monitoring the kidney function as well as electrolytes #3 the patient is also covered for pneumonia. He is on antibiotics #4 obtain an echocardiogram was Doppler to establish LV function #5 follow-up with the patient Thank you for allowing us participate in the care of the patient and we will continue following up with him
--- NOTE | 2018-11-08 08:04 | XR ---
EXAMINATION TYPE: XR chest 1V DATE OF EXAM: 11/08/2018 COMPARISON: 11/17/2018 HISTORY: Shortness of breath FINDINGS: There are bilateral pleural effusions with cardiomegaly and bibasilar infiltrate. There is a diffuse interstitial pattern. Postsurgical changes and cardiac device noted. IMPRESSION: 1. Stable diffuse pleural-parenchymal changes most typical of CHF. Underlying pneumonia not excluded.
--- NOTE | 2018-11-08 08:08 | P.PN ---
Progress Note - Text The patient is a 88-year-old gentleman who presented to 2 days previous to the emergency room with shortness of breath and cough. He had been coughing some bloody sputum. The patient has been admitted to the intensive care unit. He did require BiPAP initially. He has been evaluated pulmonary medicine and cardiology and please refer to their note. Patient does have history of previous coronary artery bypass along with aortic valve surgery and atrial fibrillation for which he is on Coumadin therapy. Vital signs this morning show a temperature of 98.3 with a pulse of 59 respirations have been between 14 and 25 and his blood pressure is 132/82. 95% saturated on 3 L at this time. Patient is presently resting comfortably. Lungs are generally diminished at bases. Heart tones were irregular but rate controlled. No unusual distal edema. No new focal neurological changes. Laboratory White count has actually decreased down to 12.7 with a hemoglobin 11.9 and platelet count of 109. INR is 2.4 Electrolytes were unremarkable. BUN 36 with a creatinine 1.32 given him a GFR 49. Blood sugar 100. Calcium, phosphorus and magnesium unremarkable on Chest x-ray to my view still shows evidence of some right lower lobe infiltrative process. But overall appears to be improving from yesterday's study. Impressions and plans #1 acute on chronic congestive heart failure with systolic dysfunction along with possibility of underlying right lower lobe pneumonia. This is associated with comorbidities as stated above. Continue with his diuresis with IV Lasix as ordered by cardiology . He is also being maintained on his respiratory treatments and cardiac medications.
--- NOTE | 2018-11-08 11:22 | ECHOF ---
Referral Reason:chf MEASUREMENTS -------- HEIGHT: 177.8 cm WEIGHT: 109.8 kg BP: 147/84 RVIDd: 3.6 cm (< 3.3) IVSd: 1.4 cm (0.6 - 1.1) LVIDd: 5.0 cm (3.9 - 5.3) LVPWd: 1.3 cm (0.6 - 1.1) IVSs: 1.6 cm LVIDs: 4.2 cm LVPWs: 1.7 cm LA Diam: 4.0 cm (2.7 - 3.8) LAESV Index (A-L): 30.55 ml/m Ao Diam: 3.3 cm (2.0 - 3.7) MV EXCURSION: 19.089 mm (> 18.000) MV EF SLOPE: 88 mm/s (70 - 150) EPSS: 1.1 cm AV maxP.28 mmHg AV meanP.35 mmHg RAP: 5.00 mmHg RVSP: 64.02 mmHg FINDINGS -------- Paced rhythm. This was a technically adequate study. The left ventricular size is normal. There is moderate concentric left ventricular hypertrophy. O verall left ventricular systolic function is severely impaired with, an EF between 20 - 25 %. Basal inferoseptal LV wall motion is dyskinetic. Mid inferoseptal LV wall motion is hypokinetic. Apic al lateral LV wall motion is hypokinetic. Apical inferior LV wall motion is akinetic. The right ventricle is mildly enlarged. LA is midly dilated 29-33ml/m2. The right atrium is normal in size. Peak/mean gradient across the Aortic Valve is 22.28mmHg / 12.35mmHg. Normally functioning bioprosth etic valve. The mitral valve leaflets are mildly thickened. Mild mitral annular calcification present. Mild m itral regurgitation is present. The peak and mean MV gradients are 10.24mmHg 2.68mmHg as measured by doppler. [id number] tricuspid regurgitation present. There is severe pulmonary hypertension. The rig ht ventricular systolic pressure, as measured by Doppler, is 64.02mmHg. Trace/mild (physiologic) pulmonic regurgitation. The aortic root size is normal. The inferior vena cava is dilated with no significant inspiratory collapse which is consistent estima gene right atrial pressure of >15 mmHg. CONCLUSIONS -------- 1. Paced rhythm. 2. This was a technically adequate study. 3. The left ventricular size is normal. 4. There is moderate concentric left ventricular hypertrophy. 5. Overall left ventricular systolic function is severely impaired with, an EF between 20 - 25 %. 6. Basal inferoseptal LV wall motion is dyskinetic. 7. Mid inferoseptal LV wall motion is hypokinetic. 8. Apical lateral LV wall motion is hypokinetic. 9. Apical inferior LV wall motion is akinetic. 10. The right ventricle is mildly enlarged. 11. LA is midly dilated 29-33ml/m2. 12. The right atrium is normal in size. 13. Peak/mean gradient across the Aortic Valve is 22.28mmHg / 12.35mmHg. 14. Normally functioning bioprosthetic valve. 15. The mitral valve leaflets are mildly thickened. 16. Mild mitral annular calcification present. 17. Mild mitral regurgitation is present. 18. The peak and mean MV gradients are 10.24mmHg 2.68mmHg as measured by doppler. 19. [id number] tricuspid regurgitation present. 20. There is severe pulmonary hypertension. 21. The right ventricular systolic pressure, as measured by Doppler, is 64.02mmHg. 22. Trace/mild (physiologic) pulmonic regurgitation. 23. The aortic root size is normal. 24. The inferior vena cava is dilated with no significant inspiratory collapse which is consistent es timated right atrial pressure of >15 mmHg. SCHOOL [employer] TECHNICIAN: Romi Morton RDCS
[2018-11-08] MEDS: LEVOTHYROXINE 88 MCG TAB PO SCH (11:37)
[2018-11-08] MEDS: PANTOPRAZOLE 40 MG TABLET PO SCH (11:38)
[2018-11-08] MEDS: ATENOLOL 25 MG TAB PO SCH (11:38)
[2018-11-08] MEDS: ASPIRIN 81 MG PO SCH (11:38)
[2018-11-08] MEDS: POTASSIUM CHLORIDE ER 20 MEQ TAB.ER PO SCH (11:38)
[2018-11-08] MEDS: CHOLECALCIFEROL 1,000 UNIT TAB PO SCH (11:40)
[2018-11-08] MEDS: ATORVASTATIN 80 MG TAB PO SCH (11:40)
[2018-11-08] MEDS: FERROUS SULFATE 325 MG TAB PO SCH (11:40)
[2018-11-08] MEDS: LOSARTAN 25 MG TAB PO SCH (11:41)
[2018-11-08] MEDS: ISOSORBIDE MONONITRATE ER 60 MG TAB.ER.24H PO SCH (11:41)
--- NOTE | 2018-11-08 12:54 | P.PN ---
Subjective Progress Note Date: 11/08/18 Principal diagnosis: Acute systolic congestive heart failure This is an 88-year-old white male with history of coronary artery disease, previous CABG in 2000. Known history of ischemic cardiomyopathy, previous AICD placement, known history of chronic atrial fibrillation, valvular heart disease, previous aortic valve replacement, patient presented to the hospital last night complaining of few days' history of increased shortness of breath. Denies any fever, no chills, no hemoptysis, no chest pain. Patient was also noted to have increased swelling in his lower extremities. Chest x-ray upon arrival to the ER showed interstitial edema, possibility of pneumonia is not entirely ruled out, his pro-calcitonin level was normal. Patient was initially given fluid boluses for slightly elevated lactic acid, he was placed on BiPAP, however this morning he was switched to a nasal cannula, chest x-ray showed worsening interstitial edema, hence I recommended cutting down the IV fluid to KVO, and recommended diuresis with Lasix 40 mg IV push every 12 hours. The patient himself is an extremely poor historian. Most of the information was actually obtained from the chart. During my evaluation the patient was feeling better, breathing easier, although her chest x-ray was noted to be significantly worse compared to the admission chest x-ray. Echocardiogram was ordered, cardiology was consulted. CT of the chest showed no evidence of pulmonary embolism. There was however evidence of ascites, and mesenteric edema. Patient was reevaluated today on 11/08/2018, remains in the ICU, on nasal cannula, feeling much better, breathing a lot easier, not requiring BiPAP, he is hemodynamically stable, not requiring any pressors. In atrial fibrillation with controlled heart rate, he is also on anticoagulation therapy, has been diuresing well with Lasix at 40 mg IV push every 12 hours. Echocardiogram report showed severe impaired left ventricular function ejection fraction of 20-25%. Also showed moderate tricuspid regurgitation, and severe pulmonary hypertension. Right-sided pressures estimated to be at 64. CBC is noted WBC count is 12.7 hemoglobin 11.9 INR is therapeutic at 2.4. Electrolytes are normal, BUN is up to 36 creatinine is up to 1.32. Objective - Vital Signs Vital signs: Vital Signs Temp 98.2 F 11/08/18 12:00 Pulse 95 11/08/18 12:00 Resp 17 11/08/18 12:00 BP 141/74 11/08/18 12:00 Pulse Ox 94 L 11/08/18 12:00 Intake & Output 11/07/18 11/08/18 11/08/18 18:59 06:59 18:59 Intake Total 840 900 120 Output Total 1360 1145 1000 Balance -520 -245 -880 Weight 92.3 kg Intake: IV 640 240 120 Magnesium Sulfate-D5w Pmx 200 1 gm In Dextrose/Water 1 100ml.bag @ 100 mls/hr IVPB Q1H [facility] Rx#: [id number] Sodium Chloride 0.9% 1, 440 240 120 000 ml @ 20 mls/hr IV . Q24H [facility] Rx#:[id number] Oral 200 660 Output: Urine 1360 1145 1000 Other: Voiding Method Indwelling Catheter Indwelling Catheter # Bowel Movements 1 - Exam Physical Exam: Revealed an 88-year-old white male, very pleasant, is at bedside, on nasal cannula, in no distress, Head: Atraumatic, normocephalic, moist mucous membranes, HEENT:[Neck is supple.] [No neck masses.] [No thyromegaly.] [No JVD.] PERRLA, EOMI, no icterus. No JVD. Chest: Minimal fine crackles at the bases especially at the right base.. No wheezes noted, symmetrical chest expansion, no chest wall tenderness, Cardiac Exam: [Irregular irregular rhythm. Normal S1 and S2, no S3 gallop, 2/6 systolic murmur thought the precordium. Abdomen: [Soft, nontender, no megaly, no rebound, no guarding, normal bowel sounds.] Extremities: [No clubbing, 2+ bipedal edema, chronic venous stasis changes noted bilaterally in lower extremities. Neurological Exam: [No focal neurologic deficit.] However the patient is noted to be at times confused clearly has some underlying cognitive dysfunction. Psychiatric: Normal mood, affect, poor mental status. And poor mentation and recall. Extremities no rashes except for chronic venous stasis noted about both lower extremities. Lymphatics: No lymphadenopathy - Labs CBC & Chem 7: 11/08/18 05:09 11/08/18 05:09 Labs: Abnormal Lab Results - Last 24 Hours (Table) 11/08/18 11/08/18 11/08/18 Range/Units 05:09 05:09 05:09 WBC 12.7 H (3.8-10.6) k/uL RBC 3.98 L (4.30-5.90) m/uL Hgb 11.9 L (13.0-17.5) gm/dL Hct 36.1 L (39.0-53.0) % Plt Count 109 L (150-450) k/uL Neutrophils # 11.1 H (1.3-7.7) k/uL Lymphocytes # 0.7 L (1.0-4.8) k/uL PT 23.5 H (9.0-12.0) sec INR 2.4 H (<1.2) BUN 36 H (9-20) mg/dL Creatinine 1.32 H (0.66-1.25) mg/dL Glucose 100 H (74-99) mg/dL Microbiology - Last 24 Hours (Table) 11/07/18 13:18 Gram Stain - Preliminary Sputum Sputum Culture - Preliminary 11/06/18 17:09 Blood Culture - Preliminary Blood No Growth after 24 hours Assessment and Plan Assessment: Impression: 1 acute systolic congestive heart failure, echocardiogram showed severe LV dysfunction and ejection fraction of 20-25%. 2 acute hypoxic respiratory failure secondary to pulmonary edema 3 suspect underlying cardiomyopathy and previous AICD placement. 4 strongly doubt pneumonia based on the clinical history, findings, and normal pro calcitonin level. 5 history of valvular heart disease and previous AVR. 6 chronic atrial fibrillation 7 history of complex seizure disorder 8 history of hypothyroidism 9 history of restless leg syndrome 10 history of benign prostatic hypertrophy. 11 history of cellulitis involving left lower extremity secondary to gram- positive infection Recommendation: Continue present treatment plan, will adjust the Lasix down to 40 mg IV push daily instead of every 12 hours, continue to monitor renal profile and electrolytes on a regular basis, considering the pro calcitonin is normal and the patient is improving with diuresis, nodes for antibiotics. Echocardiog conner was reviewed, patient and his were updated on his condition, recommended transfer out of the ICU to a monitor bed on [facility] today. We'll continue to follow. Time with Patient: Less than 30
[2018-11-08] MEDS: IPRATROPIUM-ALBUTEROL 3 ML NEB INHALATION PRN ×2 (16:38→20:45)
[2018-11-08] MEDS: WARFARIN 5 MG TAB PO SCH (16:56)
[2018-11-08] MEDS: TAMSULOSIN 0.4 MG CAP.ER.24H PO SCH (22:17)
[2018-11-08] MEDS: SERTRALINE 50 MG TAB PO SCH (22:18)
[2018-11-08] MEDS: BENZOCAINE/MENTHOL LOZENG 1 EACH LOZENGE MUCOUS MEM PRN (22:20)
[2018-11-09 04:45] LABS: Basophils % (A) 0 %; Eosinophils # (A) 0.3 k/uL (0-0.7); Eosinophils % (A) 2 %; HCT 39.7 % (39.0-53.0); HGB 12.4 gm/dL (13.0-17.5); Lymphocytes # (A) 0.7 k/uL (1.0-4.8); Lymphocytes % (A) 5 %; MCH 28.2 pg (25.0-35.0); MCHC 31.3 g/dL (31.0-37.0); Mean Platelet Volume 7.6; Monocytes # (A) 0.4 k/uL (0-1.0); Monocytes % (A) 3 %; Neutrophils # (A) 11.4 k/uL (1.3-7.7); Neutrophils % (A) 88 %; Platelet Count 127 k/uL (150-450); RBC 4.41 m/uL (4.30-5.90); RDW 15.1 % (11.5-15.5); WBC 12.9 k/uL (3.8-10.6)
[2018-11-09 04:57] LABS: Potassium 4.1 mmol/L (3.5-5.1)
--- NOTE | 2018-11-09 07:41 | P.PN ---
Subjective Progress Note Date: 11/09/18 Principal diagnosis: Shortness of breath This is a pleasant 88-year-old gentleman with a past medical history significant for coronary artery disease and prior coronary artery bypass grafting in 1999, the details are unknown at this point, ischemic cardiomyopathy, status post AI CD, chronic atrial fibrillation maintaining oral anticoagulation on Coumadin, valvular heart disease and status post aortic valve replacement, as well as multiple comorbid conditions, presented to the hospital complaining of increasing in the shortness of breath. The patient overall is a poor historian. He stated that for the last several weeks, he has been more short of breath and more congested compared to before and for the last few days he has been coughing with small amount of blood in the cough. He was seen by his doctor in the office and the dose of Lasix was increased and after that he felt better for few days only but then the congestion and shortness of breath have gotten worse. Denies any fever or chills. He stated that he did develop lower extremities edema. On examination he does have pitting edema in both legs. Beside that, the patient stated that he was experiencing chest tightness. He was feeling very weak and very tired. The patient stated that he was compliant with all of his medications and also he was compliant with his diet. The patient underwent an extensive workup including a chest x-ray which showed findings consistent with CHF with possible bilateral pneumonia and also bilateral pleural effusion. He underwent a computed tomography scan of the chest and that showed no evidence of PE. The blood work overall came in to be unremarkable beside mildly abnormal troponin and GFR around 54. The EKG showed underlying atrial fibrillation with wide-complex rhythm. The troponin came in to be within normal limits. The hemoglobin and platelets are within normal limits. On physical examination, he does have bilateral pedal edema and also he does have crackles in both lung gabriel. On follow-up with the patient today, 11/09/2018, he stated that the shortness of breath has improved. He denies any chest pain or chest discomfort. The echocardiogram revealed severe LV dysfunction. The dose of Lasix was decreased yesterday to 40 mg IV daily. We'll continue monitor the kidney function and electrolytes. Consider adding Aldactone down the line. Objective - Vital Signs Vital signs: Vital Signs Temp 98.2 F 11/09/18 04:00 Pulse 66 11/09/18 04:00 Resp 21 11/09/18 04:00 BP 140/78 11/09/18 04:00 Pulse Ox 89 L 11/09/18 04:00 Intake & Output 11/08/18 11/09/18 11/09/18 18:59 06:59 18:59 Intake Total 620 360 Output Total 1600 775 Balance -980 -415 Intake: IV 120 Sodium Chloride 0.9% 1, 120 000 ml @ 20 mls/hr IV . Q24H [facility] Rx#:[id number] Oral 500 360 Output: Urine 1600 775 Other: Voiding Method Indwelling Catheter Indwelling Catheter - Constitutional General appearance: Present: no acute distress - Respiratory Respiratory: bilateral: CTA - Cardiovascular Rhythm: irregularly irregular Heart sounds: normal: S1, S2 Abnormal Heart Sounds: Present: systolic murmur - Labs CBC & Chem 7: 11/09/18 04:29 11/09/18 04:29 Labs: Abnormal Lab Results - Last 24 Hours (Table) 11/09/18 11/09/18 Range/Units 04:29 04:29 WBC 12.9 H (3.8-10.6) k/uL Hgb 12.4 L (13.0-17.5) gm/dL Plt Count 127 L (150-450) k/uL Neutrophils # 11.4 H (1.3-7.7) k/uL Lymphocytes # 0.7 L (1.0-4.8) k/uL Chloride 108 H (98-107) mmol/L BUN 34 H (9-20) mg/dL Glucose 100 H (74-99) mg/dL Microbiology - Last 24 Hours (Table) 11/06/18 17:09 Blood Culture - Preliminary Blood No Growth after 48 hours Assessment and Plan Assessment: Assessment #1 acute exacerbation of congestive heart failure secondary to systolic dysfunction #2 cardiomyopathy and status post AICD #3 severe underlying coronary artery disease and status post coronary revascularization #4 chronic atrial fibrillation on oral anticoagulation #5 valvular heart disease and status post aVR #6 multiple comorbid conditions Plan #1 continue the current dose of Lasix IV which is 40 mg a day #2 continue monitoring the kidney function as well as electrolytes #3 consider adding Aldactone down the line Thank you for allowing us participate in the care of the patient and we will continue following up with him
[2018-11-09] MEDS ORDERED: FUROSEMIDE 10 MG/ML 4 ML VIAL IV SCH (09:00)
[2018-11-09] MEDS: SPIRONOLACTONE 25 MG TAB PO SCH (09:10)
[2018-11-09] MEDS: CHOLECALCIFEROL 1,000 UNIT TAB PO SCH (09:10)
[2018-11-09] MEDS: PANTOPRAZOLE 40 MG TABLET PO SCH (09:10)
[2018-11-09] MEDS: ISOSORBIDE MONONITRATE ER 60 MG TAB.ER.24H PO SCH (09:10)
[2018-11-09] MEDS: ATORVASTATIN 80 MG TAB PO SCH (09:10)
[2018-11-09] MEDS: ASPIRIN 81 MG PO SCH (09:11)
[2018-11-09] MEDS: FERROUS SULFATE 325 MG TAB PO SCH (09:11)
[2018-11-09] MEDS: FUROSEMIDE 10 MG/ML 4 ML VIAL IV SCH ×2 (09:11→20:51)
[2018-11-09] MEDS: LOSARTAN 25 MG TAB PO SCH (09:13)
[2018-11-09] MEDS: ATENOLOL 25 MG TAB PO SCH (09:13)
[2018-11-09] MEDS: LEVOTHYROXINE 88 MCG TAB PO SCH (09:13)
--- NOTE | 2018-11-09 10:49 | P.PN ---
Subjective Progress Note Date: 11/09/18 Principal diagnosis: Acute systolic congestive heart failure This is an 88-year-old white male with history of coronary artery disease, previous CABG in 2000. Known history of ischemic cardiomyopathy, previous AICD placement, known history of chronic atrial fibrillation, valvular heart disease, previous aortic valve replacement, patient presented to the hospital last night complaining of few days' history of increased shortness of breath. Denies any fever, no chills, no hemoptysis, no chest pain. Patient was also noted to have increased swelling in his lower extremities. Chest x-ray upon arrival to the ER showed interstitial edema, possibility of pneumonia is not entirely ruled out, his pro-calcitonin level was normal. Patient was initially given fluid boluses for slightly elevated lactic acid, he was placed on BiPAP, however this morning he was switched to a nasal cannula, chest x-ray showed worsening interstitial edema, hence I recommended cutting down the IV fluid to KVO, and recommended diuresis with Lasix 40 mg IV push every 12 hours. The patient himself is an extremely poor historian. Most of the information was actually obtained from the chart. During my evaluation the patient was feeling better, breathing easier, although her chest x-ray was noted to be significantly worse compared to the admission chest x-ray. Echocardiogram was ordered, cardiology was consulted. CT of the chest showed no evidence of pulmonary embolism. There was however evidence of ascites, and mesenteric edema. Patient was reevaluated today on 11/08/2018, remains in the ICU, on nasal cannula, feeling much better, breathing a lot easier, not requiring BiPAP, he is hemodynamically stable, not requiring any pressors. In atrial fibrillation with controlled heart rate, he is also on anticoagulation therapy, has been diuresing well with Lasix at 40 mg IV push every 12 hours. Echocardiogram report showed severe impaired left ventricular function ejection fraction of 20-25%. Also showed moderate tricuspid regurgitation, and severe pulmonary hypertension. Right-sided pressures estimated to be at 64. CBC is noted WBC count is 12.7 hemoglobin 11.9 INR is therapeutic at 2.4. Electrolytes are normal, BUN is up to 36 creatinine is up to 1.32. Patient was reevaluated today on 11/09/2018, remains in the ICU as an overflow from [facility]. Patient is basically about the same, however on physical examination he has more crackles at the bases especially at the right base. No chest x-ray was done, hence I recommended going back on his Lasix to 40 mg IV push every 12 hours, and I added Aldactone 25 mg daily. Labs were reviewed WBC count is 12.9, renal profile is improving. BUN is 34 creatinine is 1.05. Objective - Vital Signs Vital signs: Vital Signs Temp 98.4 F 11/09/18 08:00 Pulse 84 11/09/18 08:00 Resp 21 11/09/18 08:00 BP 146/74 11/09/18 08:00 Pulse Ox 93 L 11/09/18 08:00 Intake & Output 11/08/18 11/09/18 11/09/18 18:59 06:59 18:59 Intake Total 620 360 150 Output Total 1600 775 200 Balance -980 -415 -50 Weight 91.8 kg Intake: IV 120 Sodium Chloride 0.9% 1, 120 000 ml @ 20 mls/hr IV . Q24H [facility] Rx#:[id number] Oral 500 360 150 Output: Urine 1600 775 200 Other: Voiding Method Indwelling Catheter Indwelling Catheter Indwelling Catheter - Exam Physical Exam: Revealed an 88-year-old white male, very pleasant, is at bedside, on nasal cannula, in no distress, Head: Atraumatic, normocephalic, moist mucous membranes, HEENT:[Neck is supple.] [No neck masses.] [No thyromegaly.] [No JVD.] PERRLA, EOMI, no icterus. No JVD. Chest: Increased fine crackles at the bases especially at the right base.. No wheezes noted, symmetrical chest expansion, no chest wall tenderness, Cardiac Exam: [Irregular irregular rhythm. Normal S1 and S2, no S3 gallop, 2/6 systolic murmur thought the precordium. Abdomen: [Soft, nontender, no megaly, no rebound, no guarding, normal bowel sounds.] Extremities: [No clubbing, 2+ bipedal edema, chronic venous stasis changes noted bilaterally in lower extremities. Neurological Exam: [No focal neurologic deficit.] However the patient is noted to be at times confused clearly has some underlying cognitive dysfunction. Psychiatric: Normal mood, affect, poor mental status. And poor mentation and recall. Extremities no rashes except for chronic venous stasis noted about both lower extremities. Lymphatics: No lymphadenopathy - Labs CBC & Chem 7: 11/09/18 04:29 11/09/18 04:29 Labs: Abnormal Lab Results - Last 24 Hours (Table) 11/09/18 11/09/18 Range/Units 04:29 04:29 WBC 12.9 H (3.8-10.6) k/uL Hgb 12.4 L (13.0-17.5) gm/dL Plt Count 127 L (150-450) k/uL Neutrophils # 11.4 H (1.3-7.7) k/uL Lymphocytes # 0.7 L (1.0-4.8) k/uL Chloride 108 H (98-107) mmol/L BUN 34 H (9-20) mg/dL Glucose 100 H (74-99) mg/dL Microbiology - Last 24 Hours (Table) 11/06/18 17:09 Blood Culture - Preliminary Blood No Growth after 48 hours Assessment and Plan Assessment: Impression: 1 acute systolic congestive heart failure, echocardiogram showed severe LV dysfunction and ejection fraction of 20-25%. 2 acute hypoxic respiratory failure secondary to pulmonary edema 3 suspect underlying cardiomyopathy and previous AICD placement. 4 strongly doubt pneumonia based on the clinical history, findings, and normal pro calcitonin level. 5 history of valvular heart disease and previous AVR. 6 chronic atrial fibrillation 7 history of complex seizure disorder 8 history of hypothyroidism 9 history of restless leg syndrome 10 history of benign prostatic hypertrophy. 11 history of cellulitis involving left lower extremity secondary to gram- positive infection Recommendation: Continue present supportive care measures, I went ahead and increased his Lasix to 40 mg IV push every 12 hours, I added Aldactone 25 mg daily, we'll continue to monitor his electrolytes and renal profile on a daily basis, patient is an overflow at present in the ICU, he could be transferred to a monitor bed on [facility] today. Long-term prognosis considering his severe LV dysfunction and cardiomyopathy remains extremely poor and guarded. We will continue to follow. Time with Patient: Less than 30
--- NOTE | 2018-11-09 11:27 | P.PN ---
Progress Note - Text The patient is a 88 year old gentleman who 3 days previous presented to the emergency room with shortness of breath and cough. The cough was somewhat bloody. He was admitted to intensive care unit and initially required BiPAP therapy. Chest x-ray was consistent with bibasilar pneumonia and acute on chronic systolic congestive heart failure. Patient has been evaluated by pulmonary medicine and cardiology and please refer to their notes. Patient overall is had some gradual improvement although this morning, pulmonary has increased his Lasix and his added Aldactone to his regimen. Patient denies any chest pain. No nausea or vomiting. He is not a fan of the food here at the hospital. Vital signs show temperature 98.4 with a pulse of 66-84. Irregular. Respiratory rate of 21. Blood pressure 146/74 and is 93% saturated on 3 L nasal cannula. He does have some rales at the bases. Heart tones are irregular but rate contro lled. Abdomen nontender. No appreciable edema of the lower extremities. He is alert and oriented without new neurological changes. Laboratory White count 12.9 with a hemoglobin 12.4 and a platelet count of 127. He does have 11.4% neutrophils. Sodium was 138 with a potassium 4.1 and a CO2 content of 23. A BUN of 34 with creatinine 1.05 given him a GFR of 64 which is improved. Blood sugar 100. Calcium 9.0. Impressions and plans Patient is gradually improving. We'll continue present medications as per pulmonary medicine and cardiology. When bed is available plans are for patient to be moved to cardiac stepdown unit. Dr. Brett Lucia on-call for me over the weekend if any concerns or problems should arise.
[2018-11-09] MEDS: IPRATROPIUM-ALBUTEROL 3 ML NEB INHALATION PRN ×2 (11:46→20:19)
[2018-11-09] MEDS: WARFARIN 5 MG TAB PO SCH (17:12)
[2018-11-09] MEDS: TAMSULOSIN 0.4 MG CAP.ER.24H PO SCH (20:50)
[2018-11-09] MEDS: ALPRAZolam 0.25 MG TAB PO PRN (20:50)
[2018-11-09] MEDS: ACETAMINOPHEN TAB 325 MG TAB PO PRN (20:50)
[2018-11-09] MEDS: SERTRALINE 50 MG TAB PO SCH (20:51)
[2018-11-10] MEDS: ACETAMINOPHEN TAB 325 MG TAB PO PRN ×2 (04:55→20:23)
[2018-11-10] MEDS: LEVOTHYROXINE 88 MCG TAB PO SCH (08:36)
[2018-11-10] MEDS: CHOLECALCIFEROL 1,000 UNIT TAB PO SCH (08:36)
[2018-11-10] MEDS: LOSARTAN 25 MG TAB PO SCH (08:36)
[2018-11-10] MEDS: ASPIRIN 81 MG PO SCH (08:36)
[2018-11-10] MEDS: SPIRONOLACTONE 25 MG TAB PO SCH (08:36)
[2018-11-10] MEDS: ATORVASTATIN 80 MG TAB PO SCH (08:36)
--- NOTE | 2018-11-10 08:36 | P.PN ---
Progress Note - Text The patient is a 88 she'll gentleman who 4 days previously present emergency room with shortness of breath and cough. Hemoptysis was also present with cough. He did have a initial low-grade fever. Also he required BiPAP therapy initially. Chest x-ray was consistent with congestive heart failure along with a right lower lobe pneumonia. Patient has been evaluated by pulmonary medicine and cardiology. He is being treated for acute systolic congestive heart failure. Overall he does seem to be responding. This morning he is sitting up in bed. Does not appear to be in any distress. Denies any chest pain or unusual shortness of breath. According to the nursing staff he has been up and ambulating. Vital signs show temperature 90.8 with an irregular pulse of 61. Respiratory rate has been from 18 up to 25. Blood pressure 155/90 and he is 96% saturated on 3 L nasal cannula. Lungs do reveal some rales at the bases but otherwise no wheezes. Heart tones were irregular. Abdomen nontender. No unusual distal edema at this time. No focal neurological deficits. He is somewhat hard of hearing. No new labs this morning Impressions and plans The patient is on twice a day IV Lasix. He has had about a liter output per shift the last [address] Lucia is bottle house quality control technician for me over the weekend. Discussed with nursing staff and patient at bedside this morning. Awaiting further recommendations from cardiology and pulmonary medicine. Can be discharged when okay with pulmonary medicine and cardiology with appropriate follow-up.
[2018-11-10] MEDS: FERROUS SULFATE 325 MG TAB PO SCH (08:37)
[2018-11-10] MEDS: ISOSORBIDE MONONITRATE ER 60 MG TAB.ER.24H PO SCH (08:37)
[2018-11-10] MEDS: PANTOPRAZOLE 40 MG TABLET PO SCH (08:37)
[2018-11-10] MEDS: ATENOLOL 25 MG TAB PO SCH (08:37)
[2018-11-10] MEDS: FUROSEMIDE 10 MG/ML 4 ML VIAL IV SCH ×2 (08:38→20:24)
--- NOTE | 2018-11-10 10:06 | P.PN ---
Subjective Progress Note Date: 11/10/18 Principal diagnosis: Acute systolic congestive heart failure This is an 88-year-old white male with history of coronary artery disease, previous CABG in 2000. Known history of ischemic cardiomyopathy, previous AICD placement, known history of chronic atrial fibrillation, valvular heart disease, previous aortic valve replacement, patient presented to the hospital last night complaining of few days' history of increased shortness of breath. Denies any fever, no chills, no hemoptysis, no chest pain. Patient was also noted to have increased swelling in his lower extremities. Chest x-ray upon arrival to the ER showed interstitial edema, possibility of pneumonia is not entirely ruled out, his pro-calcitonin level was normal. Patient was initially given fluid boluses for slightly elevated lactic acid, he was placed on BiPAP, however this morning he was switched to a nasal cannula, chest x-ray showed worsening interstitial edema, hence I recommended cutting down the IV fluid to KVO, and recommended diuresis with Lasix 40 mg IV push every 12 hours. The patient himself is an extremely poor historian. Most of the information was actually obtained from the chart. During my evaluation the patient was feeling better, breathing easier, although her chest x-ray was noted to be significantly worse compared to the admission chest x-ray. Echocardiogram was ordered, cardiology was consulted. CT of the chest showed no evidence of pulmonary embolism. There was however evidence of ascites, and mesenteric edema. Patient was reevaluated today on 11/08/2018, remains in the ICU, on nasal cannula, feeling much better, breathing a lot easier, not requiring BiPAP, he is hemodynamically stable, not requiring any pressors. In atrial fibrillation with controlled heart rate, he is also on anticoagulation therapy, has been diuresing well with Lasix at 40 mg IV push every 12 hours. Echocardiogram report showed severe impaired left ventricular function ejection fraction of 20-25%. Also showed moderate tricuspid regurgitation, and severe pulmonary hypertension. Right-sided pressures estimated to be at 64. CBC is noted WBC count is 12.7 hemoglobin 11.9 INR is therapeutic at 2.4. Electrolytes are normal, BUN is up to 36 creatinine is up to 1.32. Patient was reevaluated today on 11/09/2018, remains in the ICU as an overflow from selective. Patient is basically about the same, however on physical examination he has more crackles at the bases especially at the right base. No chest x-ray was done, hence I recommended going back on his Lasix to 40 mg IV push every 12 hours, and I added Aldactone 25 mg daily. Labs were reviewed WBC count is 12.9, renal profile is improving. BUN is 34 creatinine is 1.05. Patient was reevaluated today on 11/10/2018, remains as overflow in the ICU, doing well, on room air, hardly any cough, no wheezing, no shortness of breath. No major issues overnight. However on physical examination continues to have significant crackles at the bases. CBC was noted to be relatively normal, electrolytes are normal, BUN is 34 creatinine is improving down to 1.05. Objective - Vital Signs Vital signs: Vital Signs Temp 98.0 F 11/10/18 08:00 Pulse 61 11/10/18 08:00 Resp 25 H 11/10/18 08:00 BP 155/90 11/10/18 08:00 Pulse Ox 96 11/10/18 08:00 Intake & Output 11/09/18 11/10/18 11/10/18 18:59 06:59 18:59 Intake Total 350 150 Output Total 2300 1155 1240 Balance -1950 -1155 -1090 Weight 91.8 kg 92 kg Intake: Oral 350 150 Output: Urine 2300 1155 1240 Other: Voiding Method Indwelling Catheter Indwelling Catheter Indwelling Catheter - Exam Physical Exam: Revealed an 88-year-old white male, on room air, in no distress, Head: Atraumatic, normocephalic, moist mucous membranes, HEENT:[Neck is supple.] [No neck masses.] [No thyromegaly.] [No JVD.] PERRLA, EOMI, no icterus. No JVD. Chest: Increased fine crackles at the bases especially at the right base.. No wheezes noted, symmetrical chest expansion, no chest wall tenderness, Cardiac Exam: [Irregular irregular rhythm. Normal S1 and S2, no S3 gallop, 2/6 systolic murmur thought the precordium. Abdomen: [Soft, nontender, no megaly, no rebound, no guarding, normal bowel sounds.] Extremities: [No clubbing, 2+ bipedal edema, chronic venous stasis changes noted bilaterally in lower extremities. Neurological Exam: [No focal neurologic deficit.] However the patient is noted to be at times confused clearly has some underlying cognitive dysfunction. Psychiatric: Normal mood, affect, poor mental status. And poor mentation and recall. Extremities no rashes except for chronic venous stasis noted about both lower extremities. Lymphatics: No lymphadenopathy - Labs CBC & Chem 7: 11/09/18 04:29 11/09/18 04:29 Labs: Microbiology - Last 24 Hours (Table) 11/06/18 17:09 Blood Culture - Preliminary Blood No Growth after 72 hours 11/07/18 13:18 Gram Stain - Final Sputum Sputum Culture - Final Assessment and Plan Assessment: Impression: 1 acute systolic congestive heart failure, echocardiogram showed severe LV dysfunction and ejection fraction of 20-25%. 2 acute hypoxic respiratory failure secondary to pulmonary edema 3 suspect underlying cardiomyopathy and previous AICD placement. 4 strongly doubt pneumonia based on the clinical history, findings, and normal pro calcitonin level. 5 history of valvular heart disease and previous AVR. 6 chronic atrial fibrillation 7 history of complex seizure disorder 8 history of hypothyroidism 9 history of restless leg syndrome 10 history of benign prostatic hypertrophy. 11 history of cellulitis involving left lower extremity secondary to gram- positive infection Recommendation: Continue present supportive care measures, will transfer the patient to the medical surgical floor with remote telemetry, we will consider discharging the patient in the next 24 hours. Patient has made a significant improvement since admission. We'll continue diuretics, and continue the rest of the medications as listed. Time with Patient: Less than 30
[2018-11-10] MEDS: IPRATROPIUM-ALBUTEROL 3 ML NEB INHALATION PRN (11:31)
--- NOTE | 2018-11-10 12:41 | P.PN ---
Subjective Progress Note Date: 11/10/18 Principal diagnosis: Shortness of breath This is a pleasant 88-year-old gentleman with a past medical history significant for coronary artery disease and prior coronary artery bypass grafting in 1999, the details are unknown at this point, ischemic cardiomyopathy, status post AI CD, chronic atrial fibrillation maintaining oral anticoagulation on Coumadin, valvular heart disease and status post aortic valve replacement, as well as multiple comorbid conditions, presented to the hospital complaining of increasing in the shortness of breath. The patient overall is a poor historian. He stated that for the last several weeks, he has been more short of breath and more congested compared to before and for the last few days he has been coughing with small amount of blood in the cough. He was seen by his doctor in the office and the dose of Lasix was increased and after that he felt better for few days only but then the congestion and shortness of breath have gotten worse. Denies any fever or chills. He stated that he did develop lower extremities edema. On examination he does have pitting edema in both legs. Beside that, the patient stated that he was experiencing chest tightness. He was feeling very weak and very tired. The patient stated that he was compliant with all of his medications and also he was compliant with his diet. The patient underwent an extensive workup including a chest x-ray which showed findings consistent with CHF with possible bilateral pneumonia and also bilateral pleural effusion. He underwent a computed tomography scan of the chest and that showed no evidence of PE. The blood work overall came in to be unremarkable beside mildly abnormal troponin and GFR around 54. The EKG showed underlying atrial fibrillation with wide-complex rhythm. The troponin came in to be within normal limits. The hemoglobin and platelets are within normal limits. On follow-up with the patient today, 11/10/2018, the patient stated that he is feeling better internal shortness of breath. On examination he still have bilateral rhonchi and bilateral expiratory wheezing. He is on Lasix IV. The kidney function continues to be stable. I would recommend keeping the patient for IV Lasix for additional 24 hours. Beside that he is on Aldactone and he is on maximize medical treatment for the cardiomyopathy. Objective - Vital Signs Vital signs: Vital Signs Temp 98.0 F 11/10/18 08:00 Pulse 66 11/10/18 11:42 Resp 25 H 05/12/19 08:00 BP 155/90 11/10/18 08:00 Pulse Ox 96 11/10/18 08:00 Intake & Output 11/09/18 11/10/18 11/10/18 18:59 06:59 18:59 Intake Total 350 150 Output Total 2300 1155 1240 Balance -1950 -1155 -1090 Weight 91.8 kg 92 kg Intake: Oral 350 150 Output: Urine 2300 1155 1240 Other: Voiding Method Indwelling Catheter Indwelling Catheter Indwelling Catheter - Constitutional General appearance: Present: no acute distress - Respiratory Respiratory: bilateral: rales - Cardiovascular Rhythm: irregularly irregular Heart sounds: normal: S1, S2 - Labs CBC & Chem 7: 11/09/18 04:29 11/09/18 04:29 Labs: Microbiology - Last 24 Hours (Table) 11/06/18 17:09 Blood Culture - Preliminary Blood No Growth after 72 hours 11/07/18 13:18 Gram Stain - Final Sputum Sputum Culture - Final Assessment and Plan Assessment: Assessment #1 acute exacerbation of congestive heart failure secondary to systolic dysfunction #2 cardiomyopathy and status post AICD #3 severe underlying coronary artery disease and status post coronary revascularization #4 chronic atrial fibrillation on oral anticoagulation #5 valvular heart disease and status post aVR #6 multiple comorbid conditions Plan #1 continue the current dose of Lasix IV which is 40 mg a day #2 continue monitoring the kidney function as well as electrolytes #3 follow-up with the patient Thank you for allowing us participate in the care of the patient and we will con tinue following up with him
[2018-11-10] MEDS: WARFARIN 5 MG TAB PO SCH (17:04)
[2018-11-10] MEDS: ALPRAZolam 0.25 MG TAB PO PRN (20:24)
[2018-11-10] MEDS: TAMSULOSIN 0.4 MG CAP.ER.24H PO SCH (20:24)
[2018-11-10] MEDS: SERTRALINE 50 MG TAB PO SCH (20:24)
[2018-11-11] MEDS: ACETAMINOPHEN TAB 325 MG TAB PO PRN ×2 (00:02→21:41)
[2018-11-11] MEDS: BENZOCAINE/MENTHOL LOZENG 1 EACH LOZENGE MUCOUS MEM PRN (01:21)
[2018-11-11] MEDS: ALPRAZolam 0.25 MG TAB PO PRN ×2 (01:22→21:40)
[2018-11-11 05:35] LABS: INR 2.5 (<1.2); Prothrombin Time 24.2 sec (9.0-12.0)
[2018-11-11] MEDS: LEVOTHYROXINE 88 MCG TAB PO SCH (06:14)
--- NOTE | 2018-11-11 08:10 | PN ---
PROGRESS NOTE Mr. Guzman is an 88-year-old male status post aortic valve replacement, coronary artery bypass grafting, atrial fibrillation per ICD implantation who presented with symptoms progressive dyspnea, worsening edema, has severe cardiomyopathy. He had evidence of congestive heart failure with severe systolic dysfunction. He is feeling better this morning. His breathing is stable. He denies any chest pain. He denies any dizziness or palpitation. He denies any nausea. He continues to be on aspirin 81 mg daily, Coumadin, Tenormin 12.5 mg daily, Lasix 40 mg IV q.12 hours, isosorbide mononitrate 60 mg daily, losartan 25 mg daily, Protonix, spironolactone 25 mg daily, Coumadin and Flomax 0.4 mg daily. PHYSICAL EXAMINATION: Blood pressure running in the 130s over 60 with the heart rate in the 80s. LUNGS: No wheezes. HEART: S1, S2 with prosthetic aortic sounds with a systolic ejection murmur. No diastolic murmur, no rub. ABDOMEN: Soft, nontender. EXTREMITIES: +1 edema more noted on the left side. LAB DATA: Lab data revealed BUN and creatinine of 34 and 1.05, potassium of 4.1, that was on the 11th. His INR is 2.5. Hemoglobin of 12.4. IMPRESSION: 1. Symptoms of congestive heart failure in a patient with known history of severe ischemic cardiomyopathy status post aortic valve replacement and coronary artery bypass grafting. 2. Status post ICD implantation. 3. Chronic atrial fibrillation. 4. Status post aortic valve replacement. 5. History of hypertension. 6. History of seizure disorder. RECOMMENDATION: We will continue IV Lasix for another 24 hours. Follow the renal function. Increase his level activity. If he is stable I will switch him to oral diuretics tomorrow and depending on his progress, further recommendation will be made. MMODL / IJN: [id number] /
--- NOTE | 2018-11-11 08:21 | P.PN ---
Progress Note - Text The patient is a 88-year-old gentleman who has underlying cardiomyopathy post aortic valve replacement along with previous coronary artery bypass grafting and ICD placement along with history of chronic atrial fibrillation. Patient presented with increasing shortness of breath. Initial chest x-ray consistent with acute congestive heart failure with history of severe systolic dysfunction along with a possible infiltrate/right lower lobe pneumonia. Patient has generally improved with IV Lasix along with addition of spironolactone. Patient's weight is decreased from 91.8 kg down to 86.8 kg today. Output remained good around 1 L to 1 1/2 L per shift. Patient himself denies any shortness of breath at rest. No chest pain. No nausea or vomiting. Vital signs show temperature 98.4 with a pulse of 87 respirations 21. Blood pressure 139/61 and he is 96% saturated on 3 L. Patient to is alert and oriented. Lungs are generally clear. Heart tones are slightly irregular but rate controlled. Abdomen soft No unusual edema. No new focal neurological changes. INR is 2.5. Impression and plans As discussed with patient and nursing staff this morning. Plans to remove Cardoza to see if patient can void on his own. If okay with pulmonary medicine and cardiology patient may be discharged. Otherwise patient to be moved to a stepdown unit if bed available.
--- NOTE | 2018-11-11 08:49 | PN ---
PROGRESS NOTE DATE OF SERVICE: November 11, 2018 This is an 88-year-old gentleman who was admitted back on November 07 with diagnosis of CHF, possible sepsis and possible pneumonia. He was initially placed on BiPAP therapy. He apparently turned around rather quickly. He is currently on 3 L nasal cannula, not receiving any IV fluids. No chest x-ray was done. He has a history of acute systolic heart failure with an ejection fraction between 20% to 25%, acute pulmonary edema, cardiomyopathy, status post AICD placement, valvular heart disease with previous AVR, atrial fibrillation, complex seizure disorder, hypothyroidism, restless legs syndrome, BPH and cellulitis involving the left lower extremity. The patient does appear to be resting comfortably. Not complaining of any shortness of breath. The patient is receiving O2 at 3 L. Denies any chest pain or chest discomfort. Denies shortness of breath. He was actually sleeping when I first entered the room. His last chest x-ray was done on November 08. Currently, temperature is 98.4, heart rate 87, respiratory rate 21, blood pressure 139/61, mean 87 and 3 L saturation 96%. Appears in no acute distress. HEENT: Examination is grossly unremarkable. Mucous membranes are moist. There is no oral lesions. NECK: Supple. Full range of motion. No adenopathy or thyromegaly. Neck veins are flat. CARDIOVASCULAR: Examination reveals irregular rhythm and rate. Heart sounds are distant. S1, S2 normal. No S3, S4. Soft systolic murmur noted. LUNGS: Reveal relatively clear breath sounds. There is no wheezes or rhonchi. No crackles. Breath sounds equal bilaterally. ABDOMEN: Soft. Bowel sounds are heard. EXTREMITIES: Are intact. There is some chronic venous stasis changes. There is some diffuse erythema of the bilateral lower extremities. Mild pitting noted. SKIN: Without rash otherwise. NEUROLOGIC: Examination is brief but nonfocal. Microbiologic studies are all negative. Labs are reviewed. PT, INR was 24.2 and 2.5. This is the only labs noted. No x-ray reported. Medications are reviewed. ASSESSMENT: 1. Acute systolic congestive heart failure with an estimated ejection fraction of 20% to 25% and severe left ventricular dysfunction. 2. Acute hypoxemic respiratory failure secondary to congestive heart failure/pulmonary edema. 3. Underlying cardiomyopathy with previous AICD placement. 4. History of valvular heart disease and previous AVR. 5. History of chronic atrial fibrillation. 6. History of complex seizure disorder. 7. History of hypothyroidism. 8. History of restless legs syndrome. 9. History of benign prostatic hypertrophy. 10.Left lower extremity cellulitis and chronic venous stasis changes. PLAN: The patient is doing well. We will continue to follow. Medications, problem list and allergies are all reviewed. No additional recommendations are made. MMODL / IJN: [id number] /
[2018-11-11] MEDS: ATORVASTATIN 80 MG TAB PO SCH (09:13)
[2018-11-11] MEDS: FERROUS SULFATE 325 MG TAB PO SCH (09:13)
[2018-11-11] MEDS: ISOSORBIDE MONONITRATE ER 60 MG TAB.ER.24H PO SCH (09:13)
[2018-11-11] MEDS: PANTOPRAZOLE 40 MG TABLET PO SCH (09:13)
[2018-11-11] MEDS: ATENOLOL 25 MG TAB PO SCH (09:13)
[2018-11-11] MEDS: ASPIRIN 81 MG PO SCH (09:13)
[2018-11-11] MEDS: CHOLECALCIFEROL 1,000 UNIT TAB PO SCH (09:13)
[2018-11-11] MEDS: FUROSEMIDE 10 MG/ML 4 ML VIAL IV SCH ×2 (09:13→21:40)
[2018-11-11] MEDS: SPIRONOLACTONE 25 MG TAB PO SCH (09:13)
[2018-11-11 12:32] LABS: HCT 39.7 % (39.0-53.0); HGB 12.8 gm/dL (13.0-17.5); MCH 28.8 pg (25.0-35.0); MCHC 32.3 g/dL (31.0-37.0); MCV 89.1 fL (80.0-100.0); Mean Platelet Volume 7.3; Platelet Count 166 k/uL (150-450); RBC 4.46 m/uL (4.30-5.90); RDW 14.4 % (11.5-15.5); WBC 10.8 k/uL (3.8-10.6)
[2018-11-11] MEDS: WARFARIN 5 MG TAB PO SCH (17:29)
[2018-11-11 21:22] LABS: HCT 38.4 % (39.0-53.0); HGB 12.9 gm/dL (13.0-17.5); MCH 29.9 pg (25.0-35.0); MCHC 33.5 g/dL (31.0-37.0); MCV 89.2 fL (80.0-100.0); Mean Platelet Volume 7.8; Platelet Count 169 k/uL (150-450); RBC 4.31 m/uL (4.30-5.90); RDW 14.7 % (11.5-15.5); WBC 10.6 k/uL (3.8-10.6)
[2018-11-11] MEDS: TAMSULOSIN 0.4 MG CAP.ER.24H PO SCH (21:40)
[2018-11-11] MEDS: SERTRALINE 50 MG TAB PO SCH (21:41)
[2018-11-11] MEDS: LOSARTAN 25 MG TAB PO SCH (21:41)
[2018-11-12 05:24] LABS: INR 3.1 (<1.2); Prothrombin Time 29.6 sec (9.0-12.0)
[2018-11-12 05:29] LABS: Calcium 8.7 mg/dL (8.4-10.2); Potassium 3.1 mmol/L (3.5-5.1)
[2018-11-12] MEDS ORDERED: Potassium Replacement Protocol 1 EACH MISC MISCELLANE PRN (05:37)
[2018-11-12] MEDS: LEVOTHYROXINE 88 MCG TAB PO SCH (06:15)
[2018-11-12] MEDS: POTASSIUM CHLORIDE ER 20 MEQ TAB.ER PO SCH ×3 (06:15→10:10)
[2018-11-12] MEDS: PANTOPRAZOLE 40 MG TABLET PO SCH (06:56)
[2018-11-12 07:55] VITALS: BP 118/66
--- NOTE | 2018-11-12 08:01 | PN ---
PROGRESS NOTE DATE OF SERVICE: November 12, 2018 This is an 88-year-old gentleman who was admitted back on November 07 with diagnosis of CHF, possible sepsis and possible pneumonia. He was initially placed on BiPAP therapy. He apparently turned around rather quickly. Currently, Mr. Guzman is on 2 L by nasal cannula. He is not receiving any IV fluids. The patient has a history of acute systolic heart failure with an ejection fraction between 20% to 25%, pulmonary edema, cardiomyopathy, status post AICD placement, valvular heart disease, previous AVR, atrial fibrillation, complex seizure disorder, and hypothyroidism. In addition, the patient has a history of restless legs syndrome, BPH, and cellulitis of the left lower extremity. The patient seems to be doing relatively well. He had no issues last night. Denies shortness of breath, difficulty breathing, chest pain or pressure, cough, wheezing, or phlegm production. Currently, the patient's vital signs include a temperature 98.2, heart rate 71, respiratory rate 20, blood pressure 127/67, mean 87, and a 2 L saturation between 94% and 96%. Appears in no acute distress. No respiratory distress. HEENT: Examination is grossly unremarkable. Nasal O2 in place. Oral mucosa is normal. No oral lesions. NECK: Supple. Full range of motion. No adenopathy or thyromegaly. Neck veins are flat. CARDIOVASCULAR: Examination reveals an irregular rhythm and rate. S1, S2 normal. No S3 or S4. A soft systolic murmur is noted. LUNGS: Reveal mostly clear breath sounds. A few scattered mild rhonchi are noted. No crackles or wheezes. ABDOMEN: Soft. Bowel sounds are heard. EXTREMITIES: Are intact. There is some mild chronic venous stasis changes. Minimal edema. SKIN: Without rash. NEUROLOGIC: Examination is brief but nonfocal. Laboratory data includes a PT/INR of 29.6 and 3.1 respectively. Sodium 137, potassium 3.1, chloride 102, CO2 is 28. Anion gap is 7. BUN and creatinine were 33 and 1.04. No CBC done. Microbiology is negative. No chest x-ray is done. Medications are reviewed. ASSESSMENT: 1. Acute systolic heart failure with estimated ejection fraction of 20% to 25%. and severe left ventricular dysfunction. 2. Acute hypoxemic respiratory failure secondary to congestive heart failure/pulmonary edema. 3. Underlying cardiomyopathy with previous AICD placement. 4. Valvular heart disease and previous AVR. 5. History of chronic atrial fibrillation. 6. History of complex seizure disorder. 7. History of hypothyroidism. 8. History of restless legs syndrome. 9. Benign prostatic hypertrophy. 10.Left lower extremity cellulitis and chronic venous stasis changes. PLAN: The patient had an uneventful night. The patient could be transferred over to [address] [place] [address]. The patient denies any chest pain or chest discomfort. The patient denies any breathing difficulty. There is no fever, chills, nausea, vomiting or diarrhea. Labs, x-rays, medications and problem list are all reviewed. MMODL / IJN: [id number] /
[2018-11-12 08:24] VITALS: RESP 20; TEMP 97.9
--- NOTE | 2018-11-12 08:24 | P.PN ---
Progress Note - Text The patient is a 88-year-old gentleman who is admitted with cough associated with hemoptysis and shortness of breath. History of previous underlying cardiomyopathy with aortic valve replacement and coronary artery bypass grafting and ICD placement in the past with history of chronic atrial fibrillation. Initial chest x-ray was consistent with acute on chronic congestive heart failure along with right lower lobe infiltrate. Patient was treated initially with antibiotics and primarily treated with IV Lasix with gradual improvement in his symptoms. This morning he is sitting up in bed. Alert and oriented. Yesterday he had some dark stool but has not had any persistent dark stools and his hemoglobin remained stable at 12.9 yesterday. Vital signs show a pulse of 74 with respirations 14 and blood pressure 118/66. 95% saturation on 2 L nasal cannula. Temperature normal Lungs are generally clear without wheezing. Heart tones slightly irregular but rate controlled. No unusual edema. Abdomen soft and nontender. Cranial nerves intact. No focal weakness noted. Laboratory White count 10.6 with hemoglobin 12.9 and platelet count 169. INR this morning was 3.1 Sodium 137 with potassium down to 3.1 likely secondary to his diuresis. BUN of 33 with creatinine 1.0 for given a GFR of 65. Blood sugar was 112 and calcium 8.7. Stool for occult blood was positive. Impressions and plans Discussed with the patient and nursing staff. Apparently he has been cleared by cardiology and pulmonary medicine for discharge to home. He will resume his home medications and Lasix will be increase to 40 mg twice a day and potassium increased to 20 mEq twice a day. These will be sent to [facility] pharmacy here at [facility]. INR nino to 3.1. We'll hold today and then resume his previous dosage. Patient to have CBC, basic metabolic panel and INR later this week. Diet and activities as tolerated. No major exertional or strenuous activities.
--- NOTE | 2018-11-12 08:31 | PN ---
PROGRESS NOTE Mr. Guzman is an 88-year-old male with known history of coronary artery disease, status post bypass grafting, aortic valve replacement, chronic persistent atrial fibrillation, history of permanent pacemaker and history of ICD implantation who presented with worsening dyspnea and cough. He is feeling better today. He is lying supine. He has no chest pain. His breathing has been stable. He denies any dizziness or palpitation. He denies any nausea. He continues to be at this time on aspirin once a day, atenolol 12.5 mg daily, Lipitor 80 mg daily, furosemide 40 mg IV q.12 hours, isosorbide mononitrate 60 mg daily, potassium supplement and Coumadin, Aldactone 25 mg daily, and Flomax 0.4 mg daily. PHYSICAL EXAMINATION: Blood pressure 127/60 with a heart rate in the 70s. LUNGS: No wheezes or rales. HEART: Irregular, regular. S1, S2. No S3 with prosthetic aortic sound and systolic murmur, no diastolic murmur. ABDOMEN: Soft, nontender. EXTREMITIES: +1 edema on the left side. LAB DATA: BUN and creatinine 33 and 1.04. Potassium 3.1, hemoglobin 12.9. INR of 3.1. IMPRESSION: 1. Exacerbation of congestive heart failure in a patient with history of severe systolic dysfunction. 2. Status post ICD implant. 3. Chronic atrial fibrillation. 4. Status post aortic valve replacement and coronary artery bypass grafting. 5. Hypertension. 6. Prior history of seizure activity. RECOMMENDATION: I will switch him to oral diuretic, increase his level of activity. I would expect he should be able to be discharged home soon and followed as an outpatient. MMODL / IJN: [id number] /
[2018-11-12] MEDS ORDERED: FUROSEMIDE 40 MG TAB PO SCH (09:00)
[2018-11-12 09:18] VITALS: PULSE 74
[2018-11-12] MEDS: WARFARIN 5 MG TAB PO SCH (10:04)
[2018-11-12] MEDS: FERROUS SULFATE 325 MG TAB PO SCH (10:11)
[2018-11-12] MEDS: ASPIRIN 81 MG PO SCH (10:11)
[2018-11-12] MEDS: CHOLECALCIFEROL 1,000 UNIT TAB PO SCH (10:11)
[2018-11-12] MEDS: ATENOLOL 25 MG TAB PO SCH (10:11)
[2018-11-12] MEDS: ATORVASTATIN 80 MG TAB PO SCH (10:11)
[2018-11-12] MEDS: ISOSORBIDE MONONITRATE ER 60 MG TAB.ER.24H PO SCH (10:12)
[2018-11-12] MEDS: LOSARTAN 25 MG TAB PO SCH (10:12)
[2018-11-12] MEDS: SPIRONOLACTONE 25 MG TAB PO SCH (10:12)
--- NOTE | 2018-11-13 08:58 | DS ---
DISCHARGE SUMMARY Mr. Guzman is an 88-year-old gentleman who presented to the emergency room with cough and bloody sputum production, low-grade fever, increasing shortness of breath. This is all superimposed on a history of cardiomyopathy with history of coronary artery bypass and a previous aortic valve surgery, underlying pacemaker and defibrillator in place and hypertensive heart disease. The patient was found on initial x-ray to have findings of bilateral infiltrates along with pleural effusions and congestive heart failure. He was initiated on antibiotics and IV diuretics and was admitted into the intensive care unit. He was seen by pulmonary medicine, Dr. Calero and [facility] and please refer to their respective notes and consultations. EKG was undetermined rhythm with a nonspecific up block Laboratories on presentation revealed a white count of 13.9 with a hemoglobin 14.8 and a platelet count of 140. His INR was 2.0. Sodium is 142 with potassium 3.9, CO2 content was 21, blood sugar was 189. His lactic acid level was 2.9. Bilirubin was 2.0. ProBNP was elevated at 1680. Procalcitonin was 0.07. Influenza A and B were not detected. Albumin was 4.9. Troponin level was less than 0.012. Once again, he was treated with antibiotics, respiratory treatments and IV Lasix with gradual diuresis and improvement in his overall symptomatology. He did lose weight and had improvement in his chest x- ray was associated with improvement in his respiratory status. He did develop episodes of some dark melanotic stool, but he had been on iron and hemoglobins remained stable at about 12.9. He was also started on Aldactone. At this point plans are to discharge to home with followup by myself and [facility] and [facility]. Medications will include his Lasix at 40 mg twice a day. He is also to be taken Klor-Con 20 mEq twice a day as his last potassium was 3.1. He is also to remain on his Coumadin 5 mg daily. Aldactone 25 mg once a day, losartan 25 mg daily. He is on tamsulosin 0.4 mg daily, Zoloft 25 mg at bedtime, omeprazole 20 mg at breakfast, levothyroxine 88 mcg, Imdur 60 mg daily, ferrous sulfate 325 mg daily, vitamin D3, 1000 units daily, Lipitor 80 mg daily Tenormin 12.5 daily and aspirin 81 mg daily, vitamin B complex and Ocuvite daily. Diet and activities as tolerated. FINAL DISCHARGE DIAGNOSES: 1. Right lower lobe pneumonia with a acute congestive heart failure with severe systolic dysfunction and acute on chronic respiratory failure requiring BiPAP. 2. Underlying sepsis and septic inflammatory response syndrome with elevated lactic acid levels. 3. History of underlying cardiomyopathy with history of ischemic cardiac disease. 4. Previous aortic valve replacement and coronary artery bypass surgery. 5. Chronic atrial fibrillation, previous ICD placement. 6. Hypertension. 7. History of seizure disorder. 8. Hyperlipidemia. 9. Hypothyroidism. 10.Restless legs syndrome. 11.Benign prostatic hypertrophy. 12.Previous heavy alcohol usage. MMODL / IJN: [id number] / MTDD
== END 2018-11-12 12:58 | disposition home or self-care (01) | DRG 871 ==
LOC: EC 16:55 → 2SICU 18:14
PROVIDERS: ADMIT Internal Medicine; ATTEND Internal Medicine
PROC: 5A09457 Assistance with Respiratory Ventilation, 24-96 Consecutive Hours, Continuous Positive Airway Pressure (ICD-10-PCS; principal; 2018-11-06)
DX: A41.9 Sepsis, unspecified organism (principal); J18.1 Lobar pneumonia, unspecified organism; I50.23 Acute on chronic systolic (congestive) heart failure; J96.21 Acute and chronic respiratory failure with hypoxia; L03.116 Cellulitis of left lower limb; R18.8 Other ascites; E87.2 Acidosis; I11.0 Hypertensive heart disease with heart failure; I48.2 Chronic atrial fibrillation; Z79.01 Long term (current) use of anticoagulants; I25.5 Ischemic cardiomyopathy; E03.9 Hypothyroidism, unspecified; E78.5 Hyperlipidemia, unspecified; G25.81 Restless legs syndrome; I27.20 Pulmonary hypertension, unspecified; K21.9 Gastro-esophageal reflux disease without esophagitis; N40.0 Benign prostatic hyperplasia without lower urinary tract symptoms; M81.0 Age-related osteoporosis without current pathological fracture; M19.90 Unspecified osteoarthritis, unspecified site; G40.909 Epilepsy, unspecified, not intractable, without status epilepticus; I07.1 Rheumatic tricuspid insufficiency; I25.10 Atherosclerotic heart disease of native coronary artery without angina pectoris; I25.2 Old myocardial infarction; Z79.82 Long term (current) use of aspirin; Z79.890 Hormone replacement therapy; Z79.899 Other long term (current) drug therapy; Z85.828 Personal history of other malignant neoplasm of skin; Z87.891 Personal history of nicotine dependence; Z97.4 Presence of external hearing-aid; Z95.810 Presence of automatic (implantable) cardiac defibrillator; Z95.2 Presence of prosthetic heart valve; Z95.1 Presence of aortocoronary bypass graft; Z88.0 Allergy status to penicillin; Z88.2 Allergy status to sulfonamides; Z88.5 Allergy status to narcotic agent; Z88.8 Allergy status to other drugs, medicaments and biological substances; Z98.890 Other specified postprocedural states; Z82.49 Family history of ischemic heart disease and other diseases of the circulatory system; Z82.5 Family history of asthma and other chronic lower respiratory diseases; Z99.89 Dependence on other enabling machines and devices
CPT/HCPCS: 36415; 71045; 71275; 80048; 80053; 81001; 82272; 82553; 83605; 83735; 83880; 84100; 84145; 84484; 85025; 85027; 85610; 85730; 86850; 86900; 86901; 87040; 87070; 87205; 87502; 93005; 93306; 94640; 94660; 96365; 99285

== ENCOUNTER → 2019-12-10 | Outpatient (CLI) | payer MEDICARE ==
--- NOTE | 2019-12-10 13:43 | CT ---
EXAMINATION TYPE: CT abdomen pelvis wo con DATE OF EXAM: 12/10/2019 COMPARISON: 08/04/2019 INDICATION: abdominal mass DLP: 918 mGycm, Automated exposure control for dose reduction was used. CONTRAST: 0 mL of Isovue 300. Study performed without Oral Contrast TECHNIQUE: Axial images were obtained from above the diaphragm to the pubic rami in the axial plane a t 5 mm thick sections. Reconstructed images are reviewed on the computer in the coronal plane. FINDINGS: Limited CT sections are obtained the lung bases. There is a small left pleural effusion. Small hiat al hernia is present. Some pericardial calcification may be present inferiorly. CT ABDOMEN: Scattered mesenteric adenopathy is present. A 0.5 cm subcrural lymph node may be present. This would be enlarged by CT criteria this location. Liver: Normal Spleen: Normal Pancreas: Normal Adrenal glands: The adrenal glands are normal. Gallbladder: Multiple small gallstones are present. Kidneys: Some irregular density extends from the posterior lateral right kidney measuring 3.5 x 1.4 c m. This area may be increasing from comparison. Additional workup is recommended. No hydronephrosis i s present. There is a 4.2 cm cyst in the anterior mid left kidney. A small cortical renal cyst in t he anterior mid right kidney is present measuring 2.1 cm. Aorta: Vascular calcification is within the aorta. Inferior vena cava: Normal. CT PELVIS: Free fluid is present within the pelvis. Loops of bowel within the abdomen and pelvis are normal. Study is performed without oral contrast limiting bowel evaluation. Appendix: Not visualized. Urinary bladder: Lobular soft tissue density in the anterior lateral right urinary bladder measuring 7.6 x 6.3 cm has enlarged over the interval. Urinary bladder wall thickening is developed over the in terval. Genitourinary structures: Prostate is prominent. Osseous structures: No suspicious lytic or sclerotic lesions. Pubic symphysis degenerative change on the left is present. This could be posttraumatic in nature. IMPRESSIONS: 1. Enlarging soft tissue mass with diffuse wall thickening of the urinary bladder discussed above. 2. Multiple mesenteric lymph nodes which are prominent. Mild inflammatory change through the mesenter y is present. 3. Ascites. 4. Small left pleural effusion. 5. Some soft tissue density may be adjacent to the right renal cortex.
== END | disposition home or self-care (01) ==
LOC: RADCTMAIN 10:56
PROVIDERS: ATTEND Family Medicine
DX: J90 Pleural effusion, not elsewhere classified (principal); R18.8 Other ascites; N28.89 Other specified disorders of kidney and ureter
CPT/HCPCS: 74176

== ENCOUNTER 2020-01-01 08:53 | Day surgery (SDC) | payer MEDICARE ==
[2020-01-01 09:33] LABS: Mean Platelet Volume 7.6; Platelet Count 126 k/uL (150-450)
[2020-01-01 09:38] VITALS: PULSE 60; RESP 16; TEMP 98
[2020-01-01 09:41] LABS: INR 1.3 (<1.2); Prothrombin Time 13.1 sec (9.0-12.0)
[2020-01-01] MEDS ORDERED: ALPRAZolam 0.25 MG TAB PO STA (09:45)
[2020-01-01] MEDS ORDERED: HYDROmorphone 0.5 MG/0.5 ML SYRINGE IVP STA (10:32)
[2020-01-01 12:37] VITALS: BP 139/65
--- NOTE | 2020-01-01 14:31 | CT ---
EXAMINATION TYPE: CT biopsy st back/flank [facility] DATE OF EXAM: 01/01/2020 HISTORY: Bladder mass COMPARISON: CT 12/10/2019 Maximal barrier technique was utilized, hand hygiene obtained with soap and water. The skin overlyin g a suitable path to the lesion at the anterior lateral margin of the urinary bladder was localized u sing CT and the overlying skin was prepped and draped. Lidocaine used for local anesthesia. A skin ann-marie made with a scalpel. Using CT guidance, access was gained to the lesion with a 18-gauge core ne edle through a 17 gauge guide. Core specimen submitted to cytology. Following the procedure no imme diate complications. The patient is discharged in stable condition. Hemostasis achieved. IMPRESSION: SUCCESSFUL CT GUIDED CORE URINARY BLADDER BIOPSY. PATHOLOGY PENDING. THIS PROCEDURE WAS PERFORMED B Y THE UNDERSIGNED.
== END 2020-01-01 11:55 | disposition home or self-care (01) ==
LOC: RADPROMAIN 08:53
PROVIDERS: ATTEND Urology
DX: N32.89 Other specified disorders of bladder (principal); C44.90 Unspecified malignant neoplasm of skin, unspecified; Z79.82 Long term (current) use of aspirin; Z79.01 Long term (current) use of anticoagulants; Z88.5 Allergy status to narcotic agent; Z88.0 Allergy status to penicillin; Z88.2 Allergy status to sulfonamides; Z88.8 Allergy status to other drugs, medicaments and biological substances
CPT/HCPCS: 49180; 88305; 85049; 85610; 88342; 88341; 36415; 77012; J1170; 21920

== ENCOUNTER 2020-01-08 09:58 | Emergency (ER) | payer MEDICARE ==
[2020-01-08] MEDS ORDERED: FUROSEMIDE 10 MG/ML 4 ML VIAL IV STA (10:21)
--- NOTE | 2020-01-08 10:34 | ED ---
General Adult HPI - General Chief complaint: Shortness of Breath Stated complaint: Fluid retention Time Seen by Provider: 01/08/20 10:00 Source: patient, RN notes reviewed, old records reviewed Mode of arrival: ambulatory Limitations: no limitations - History of Present Illness Initial comments: This is an 89-year-old male who presents emergency department with past medical history significant for congestive heart failure and open-heart surgery and ao rtic valve replacement. Patient states he is on Coumadin. Patient states over the last week he has been having increased swelling and some difficulty breathing with exertion. Patient states the left leg is smaller than the right and that is normally the way it happens but the right leg looks a little bigger than it normally does. Patient states he already has gained 6 pounds. Patient states he's been told he has a mass on his bladder but that has not been identified yet. Patient denies any fever chills. Patient denies any chest pain. Patient denies any fever chills or cough. - Related Data Home Medications Medication Instructions Recorded Confirmed Cholecalciferol [Vitamin D3] 1,000 unit PO DAILY 01/06/14 01/08/20 Isosorbide Mononitrate [Imdur] 60 mg PO DAILY 01/06/14 01/08/20 Omeprazole [PriLOSEC] 20 mg PO AC-BRKFST 01/06/14 01/08/20 Potassium Chloride [Klor-Con 20] 20 meq PO BID 01/06/14 01/08/20 Tamsulosin [Flomax] 0.4 mg PO HS 01/06/14 01/08/20 Vit A,C & E/Lutein/Minerals 1 tab PO PC-SUPPER 01/06/14 01/08/20 [Ocuvite Tablet] Aspirin EC [Ecotrin] 81 mg PO DAILY 01/05/16 01/08/20 Atenolol [Tenormin] 25 mg PO BID 03/15/17 01/08/20 Atorvastatin [Lipitor] 80 mg PO PC-SUPPER 03/15/17 01/08/20 Vitamin B Complex 1 cap PO DAILY 03/15/17 01/08/20 Losartan [Cozaar] 25 mg PO PC-SUPPER 11/06/18 01/08/20 Warfarin [Coumadin] 5 mg PO PC-SUPPER 11/06/18 01/08/20 Furosemide [Lasix] 40 mg PO DAILY 08/04/19 01/08/20 Levothyroxine Sodium [Synthroid] 100 mcg PO SUTUTHSA 08/04/19 01/08/20 Spironolactone [Aldactone] 25 mg PO DAILY 08/04/19 01/08/20 Sertraline HCl [Zoloft] 50 mg PO HS 08/05/19 01/08/20 Levothyroxine Sodium [Levoxyl] 112 mcg PO MOWEFR 12/26/19 01/08/20 Biotin 5 mg PO PC-SUPPER 01/08/20 01/08/20 Allergies Allergy/AdvReac Type Severity Reaction Status Date / Time codeine Allergy Rash/Hives Verified 01/08/20 11:35 Penicillins Allergy Rash/Hives Verified 01/08/20 11:35 Sulfa (Sulfonamide Allergy Rash/Hives Verified 01/08/20 11:35 Antibiotics) midazolam HCl [From Versed] AdvReac Confusion Verified 01/08/20 11:36 deseryl Allergy Unknown Uncoded 01/08/20 11:35 Review of Systems ROS Statement: Those systems with pertinent positive or pertinent negative responses have been documented in the HPI. ROS Other: All systems not noted in ROS Statement are negative. Past Medical History Past Medical History: Atrial Fibrillation, Atrial Flutter, Coronary Artery Disease (CAD), Cancer, Chest Pain / Angina, Heart Failure, GERD/Reflux, Hy perlipidemia, Hypertension, Memory Impairment, Myocardial Infarction (AR), Osteoarthritis (OA), Prostate Disorder, Seizure Disorder, Thyroid Disorder Additional Past Medical History / Comment(s): Current L calf injury/wound, melanoma/basal cell skin cancers with removals, numbness/tingling bilateral legs/feet, RLS, bronchitis, varicosities, diverticular disease/benign poly pectomy, BPH, recent hematuria, UPPER [place] bilaterally even with hearing aide use, 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 Last Myocardial Infarction Date:: 1994 History of Any Multi-Drug Resistant Organisms: None Reported Past Surgical History: AICD, Cardiac Ablation, Coronary Bypass/CABG, Heart Catheterization, Hernia Repair, Orthopedic Surgery, Pacemaker, Tonsillectomy Additional Past Surgical History / Comment(s): 1 vessel CABG, cardiac valve surgery, AICD/pacer originally placed in 2006 and has been redone twice, hiatal hernia repair, R knee arthroscopic surgery, detached retinal surgery L eye x2 (had erlinda), colonoscopy/benign polypectomy, basal cell skin cancer removals, melanoma skin cancer removal-top of back. Past Anesthesia/Blood Transfusion Reactions: Motion Sickness Additional Past Anesthesia/Blood Transfusion Reaction / Comment(s): "versed caused hallucinations" in the past Type of Cardiac Device: Permanent Pacemaker, AICD Device Placement Date:: unk Past Psychological History: No Psychological Hx Reported Smoking Status: Former smoker Past Alcohol Use History: None Reported Past Drug Use History: None Reported - Past Family History Father Family Medical History: CVA/TIA Mother Family Medical History: COPD Additional Family Medical History / Comment(s): Mother at age 98, it was thought that she may have had bowel cancer but d/t age, never investigated. General Exam - General Exam Comments Initial Comments: GENERAL: Patient is well-developed and well-nourished. Patient is nontoxic and well- hydrated and is in mild distress. ENT: Neck is soft and supple. No significant lymphadenopathy is noted. Oropharynx is clear. Moist mucous membranes. Neck has full range of motion without eliciting any pain. EYES: The sclera were anicteric and conjunctiva were pink and moist. Extraocular movements were intact and pupils were equal round and reactive to light. Eyelids were unremarkable. PULMONARY: Unlabored respirations. Good breath sounds bilaterally. No audible rales rhonchi or wheezing was noted. CARDIOVASCULAR: There is a regular rate and rhythm without any murmurs gallops or rubs. ABDOMEN: Soft and nontender with normal bowel sounds. SKIN: Skin is clear with no lesions or rashes and otherwise unremarkable. NEUROLOGIC: Patient is alert and oriented x3. Cranial nerves II through XII are grossly intact. Motor and sensory are also intact. Normal speech, volume and content. Symmetrical smile. MUSCULOSKELETAL: Normal extremities with adequate strength and full range of motion. Bilateral legs are swelling right greater than left. LYMPHATICS: No significant lymphadenopathy is noted PSYCHIATRIC: Normal psychiatric evaluation. Limitations: no limitations Course Vital Signs 01/08/20 01/08/20 01/08/20 10:00 10:18 10:32 Temperature 97.6 F Pulse Rate 60 64 Respiratory 18 18 18 Rate Blood Pressure 141/72 110/59 O2 Sat by Pulse 96 94 L Oximetry 01/08/20 11:40 Temperature Pulse Rate 62 Respiratory 19 Rate Blood Pressure 130/64 O2 Sat by Pulse 97 Oximetry Medical Decision Making - Medical Decision Making EKG shows a paced rhythm at 62 bpm QRS is 216 QT interval is 526. QTC is 533. Chest x-ray shows no acute abnormality. Patient is oxygenating between 9500% on room air while in the emergency department. - Lab Data Result diagrams: 01/08/20 10:13 01/08/20 10:10 Lab Results 01/08/20 01/08/20 01/08/20 Range/Units 10:10 10:10 10:10 WBC (3.8-10.6) k/uL RBC (4.30-5.90) m/uL Hgb (13.0-17.5) gm/dL Hct (39.0-53.0) % MCV (80.0-100.0) fL MCH (25.0-35.0) pg MCHC (31.0-37.0) g/dL RDW (11.5-15.5) % Plt Count (150-450) k/uL Neutrophils % % Lymphocytes % % Monocytes % % Eosinophils % % Basophils % % Neutrophils # (1.3-7.7) k/uL Lymphocytes # (1.0-4.8) k/uL Monocytes # (0-1.0) k/uL Eosinophils # (0-0.7) k/uL Basophils # (0-0.2) k/uL PT 15.4 H (9.0-12.0) sec INR 1.6 H (<1.2) APTT 29.8 (22.0-30.0) sec Sodium 138 (137-145) mmol/L Potassium 4.1 (3.5-5.1) mmol/L Chloride 106 (98-107) mmol/L Carbon Dioxide 20 L (22-30) mmol/L Anion Gap 12 mmol/L BUN 47 H (9-20) mg/dL Creatinine 1.55 H (0.66-1.25) mg/dL Est GFR (CKD-EPI)AfAm 46 (>60 ml/min/1.73 sqM) Est GFR (CKD-EPI)NonAf 40 (>60 ml/min/1.73 sqM) Glucose 115 H (74-99) mg/dL Plasma Lactic Acid Julio (0.7-2.0) mmol/L Calcium 9.7 (8.4-10.2) mg/dL Magnesium 2.1 (1.6-2.3) mg/dL Total Bilirubin 1.7 H (0.2-1.3) mg/dL AST 29 (17-59) U/L ALT 20 (4-49) U/L Alkaline Phosphatase 107 (38-126) U/L Troponin I <0.012 (0.000-0.034) ng/mL NT-Pro-B Natriuret Pep pg/mL Total Protein 6.8 (6.3-8.2) g/dL Albumin 4.3 (3.5-5.0) g/dL 01/08/20 01/08/20 01/08/20 Range/Units 10:10 10:13 10:30 WBC 6.6 (3.8-10.6) k/uL RBC 4.18 L (4.30-5.90) m/uL Hgb 12.2 L (13.0-17.5) gm/dL Hct 38.1 L (39.0-53.0) % MCV 91.2 (80.0-100.0) fL MCH 29.2 (25.0-35.0) pg MCHC 32.0 (31.0-37.0) g/dL RDW 15.0 (11.5-15.5) % Plt Count 130 L (150-450) k/uL Neutrophils % 72 % Lymphocytes % 13 % Monocytes % 8 % Eosinophils % 4 % Basophils % 1 % Neutrophils # 4.8 (1.3-7.7) k/uL Lymphocytes # 0.8 L (1.0-4.8) k/uL Monocytes # 0.5 (0-1.0) k/uL Eosinophils # 0.3 (0-0.7) k/uL Basophils # 0.1 (0-0.2) k/uL PT (9.0-12.0) sec INR (<1.2) APTT (22.0-30.0) sec Sodium (137-145) mmol/L Potassium (3.5-5.1) mmol/L Chloride (98-107) mmol/L Carbon Dioxide (22-30) mmol/L Anion Gap mmol/L BUN (9-20) mg/dL Creatinine (0.66-1.25) mg/dL Est GFR (CKD-EPI)AfAm (>60 ml/min/1.73 sqM) Est GFR (CKD-EPI)NonAf (>60 ml/min/1.73 sqM) Glucose (74-99) mg/dL Plasma Lactic Acid Julio 1.1 (0.7-2.0) mmol/L Calcium (8.4-10.2) mg/dL Magnesium (1.6-2.3) mg/dL Total Bilirubin (0.2-1.3) mg/dL AST (17-59) U/L ALT (4-49) U/L Alkaline Phosphatase (38-126) U/L Troponin I (0.000-0.034) ng/mL NT-Pro-B Natriuret Pep 2510 pg/mL Total Protein (6.3-8.2) g/dL Albumin (3.5-5.0) g/dL Disposition Clinical Impression: Pedal edema Disposition: HOME SELF-CARE Condition: Good Instructions (If sedation given, give patient instructions): Leg Edema (ED) Additional Instructions: Patient should increase Lasix to 40 twice a day. Is patient prescribed a controlled substance at d/c from ED?: No Referrals: See Cobos MD [Primary Care Provider] - 1-2 days Time of Disposition: 12:02
[2020-01-08 10:48] LABS: Basophils # (A) 0.1 k/uL (0-0.2); Basophils % (A) 1 %; Eosinophils # (A) 0.3 k/uL (0-0.7); Eosinophils % (A) 4 %; HCT 38.1 % (39.0-53.0); HGB 12.2 gm/dL (13.0-17.5); Lymphocytes # (A) 0.8 k/uL (1.0-4.8); Lymphocytes % (A) 13 %; MCH 29.2 pg (25.0-35.0); MCV 91.2 fL (80.0-100.0); Mean Platelet Volume 7.4; Monocytes # (A) 0.5 k/uL (0-1.0); Monocytes % (A) 8 %; Neutrophils # (A) 4.8 k/uL (1.3-7.7); Neutrophils % (A) 72 %; Platelet Count 130 k/uL (150-450); RBC 4.18 m/uL (4.30-5.90); WBC 6.6 k/uL (3.8-10.6)
--- NOTE | 2020-01-08 10:48 | XR ---
EXAMINATION TYPE: XR chest 2V DATE OF EXAM: 01/08/2020 COMPARISON: 08/07/2019 HISTORY: Shortness of breath TECHNIQUE: Frontal and lateral views of the chest are obtained. FINDINGS: Scattered senescent parenchymal changes noted. Hyperinflation compatible with COPD. No evidence for infiltrate. No evidence for atelectasis. Heart size is stable. Mediastinal structures are stable and grossly unremarkable. No evidence for hilar prominence. Degenerative changes dorsal spine. IMPRESSION: 1. No evidence for acute pulmonary disease.
[2020-01-08 10:56] LABS: Albumin 4.3 g/dL (3.5-5.0); Calcium 9.7 mg/dL (8.4-10.2); Magnesium 2.1 mg/dL (1.6-2.3); Potassium 4.1 mmol/L (3.5-5.1); Total Bilirubin 1.7 mg/dL (0.2-1.3); Total Protein 6.8 g/dL (6.3-8.2)
[2020-01-08 10:59] LABS: INR 1.6 (<1.2); Partial Thromboplastin Time 29.8 sec (22.0-30.0); Prothrombin Time 15.4 sec (9.0-12.0)
--- NOTE | 2020-01-08 11:30 | US ---
EXAMINATION TYPE: US venous doppler duplex LE RT DATE OF EXAM: 01/08/2020 11:18 AM COMPARISON: NONE CLINICAL HISTORY: Swollen legs . SIDE PERFORMED: Right TECHNIQUE: The lower extremity deep venous system is examined utilizing real time linear array sonog nisa with graded compression, doppler sonography and color-flow sonography. VESSELS IMAGED: External Iliac Vein (EIV) Common Femoral Vein Deep Femoral Vein Greater Saphenous Vein * Femoral Vein Popliteal Vein Small Saphenous Vein * Proximal Calf Veins (* superficial vessels) Right Leg: Negative for DVT IMPRESSION: No evidence for DVT at this time.
[2020-01-09 10:02] VITALS: BP 130/64; PULSE 62; RESP 19; TEMP 97.6
== END 2020-01-08 12:15 | disposition home or self-care (01) ==
LOC: EC 09:58
DX: R60.9 Edema, unspecified (principal); R06.02 Shortness of breath; I48.91 Unspecified atrial fibrillation; I48.92 Unspecified atrial flutter; I25.10 Atherosclerotic heart disease of native coronary artery without angina pectoris; I11.0 Hypertensive heart disease with heart failure; I50.9 Heart failure, unspecified; K21.9 Gastro-esophageal reflux disease without esophagitis; E78.5 Hyperlipidemia, unspecified; I25.2 Old myocardial infarction; N40.0 Benign prostatic hyperplasia without lower urinary tract symptoms; E03.9 Hypothyroidism, unspecified; Z85.820 Personal history of malignant melanoma of skin; Z85.828 Personal history of other malignant neoplasm of skin; Z95.810 Presence of automatic (implantable) cardiac defibrillator; Z98.890 Other specified postprocedural states; Z95.1 Presence of aortocoronary bypass graft; Z95.818 Presence of other cardiac implants and grafts; Z95.2 Presence of prosthetic heart valve; Z87.891 Personal history of nicotine dependence; Z82.5 Family history of asthma and other chronic lower respiratory diseases; Z79.82 Long term (current) use of aspirin; Z79.01 Long term (current) use of anticoagulants; Z79.890 Hormone replacement therapy; Z79.899 Other long term (current) drug therapy; Z88.5 Allergy status to narcotic agent; Z88.0 Allergy status to penicillin; Z88.2 Allergy status to sulfonamides; Z88.8 Allergy status to other drugs, medicaments and biological substances
CPT/HCPCS: 36415; 71046; 80053; 83605; 83735; 83880; 84484; 85025; 85610; 85730; 93005; 96374; 99285

== ENCOUNTER 2020-03-08 17:59 | Emergency (ER) | payer MEDICARE ==
[2020-03-08 18:06] VITALS: PULSE 60
[2020-03-08] MEDS ORDERED: DIPH,PERTUS(ACELL)TETVAC-LF 0.5 ML VIAL IM ONE (18:17)
--- NOTE | 2020-03-08 18:43 | CT ---
EXAMINATION TYPE: CT brain lorenzo wo con DATE OF EXAM: 03/08/2020 COMPARISON: 08/04/2019 HISTORY: 89-year-old male with pain after fall. Head laceration. CT DLP: 1362 mGycm Automated exposure control for dose reduction was used. Technique: Examination of the head was done in axial plane without intravenous contrast. Coronal and sagittal reconstructions performed. CT of the cervical spine was obtained in axial plane without intravenous injection of contrast mater ial. Coronal and sagittal reformatted images were obtained from the axial views for evaluation of f ractures, spinal alignment and canal. FINDINGS: Head: There is no evidence of acute intracranial hemorrhage, acute ischemic changes, mass, mass-effect, or extra-axial fluid collection. There is no effacement of cerebral sulci or basal subarachnoid cister ns. There is no midline shift. Logan-white matter distinction is preserved. Stable mild hydrocephalus. Mild patchy periventricular white matter hypodensity anterior right fronta l lobe. Suggestion of some posterior superior scalp injury. No underlying calvarial fracture. Dural calcifications along the falx and tentorium. Benign basal ganglionic and cerebellar calcificati ons. Scleral banding left globe. Paranasal sinuses and mastoid air cells well pneumatized. Cervical spine: No craniocervical junction anomaly, predental space widening, or prevertebral soft tissue swelling. D egenerative changes of the C1 dens articulation. Alignment is maintained. No acute fracture seen of the cervical spine. Moderate to advanced disc/endplate degenerative changes especially at C6/C7. Chronic superior and inf erior endplate deformities of T2 though with more sclerosis suggesting progressive degenerative disc disease. Assessment of the spinal canal limited from C4 and below due to dental amalgam artifact and artifact from patient's shoulders. Variable mild neural foraminal stenoses, more moderate on both sides at C6-C7. Layering small left pleural effusion partially visualized. Sagittal and coronal reformatted images confirm above findings. COMBINED IMPRESSION: 1. 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 Correlate to exclude a component of BOOKING MANAGER H. No acute intracranial abnormality seen. 2. Cervical spine with moderate spondylotic change. No malalignment or acute fracture. 3. Layering small left pleural effusion partially visualized.
[2020-03-08 18:51] LABS: Basophils # (A) 0.1 k/uL (0-0.2); Basophils % (A) 1 %; Eosinophils # (A) 0.3 k/uL (0-0.7); Eosinophils % (A) 4 %; HCT 39.7 % (39.0-53.0); HGB 13.1 gm/dL (13.0-17.5); Lymphocytes # (A) 0.8 k/uL (1.0-4.8); Lymphocytes % (A) 12 %; MCH 29.7 pg (25.0-35.0); MCHC 32.9 g/dL (31.0-37.0); MCV 90.3 fL (80.0-100.0); Mean Platelet Volume 7.4; Monocytes # (A) 0.4 k/uL (0-1.0); Monocytes % (A) 6 %; Neutrophils # (A) 5.2 k/uL (1.3-7.7); Neutrophils % (A) 76 %; Platelet Count 103 k/uL (150-450); RBC 4.39 m/uL (4.30-5.90); RDW 13.9 % (11.5-15.5); WBC 6.8 k/uL (3.8-10.6)
--- NOTE | 2020-03-08 18:56 | ED ---
General Adult HPI - General Chief complaint: Fall Stated complaint: head laceration Time Seen by Provider: 03/08/20 18:11 Source: patient, RN notes reviewed, old records reviewed Mode of arrival: ambulatory Limitations: no limitations - History of Present Illness Initial comments: 89-year-old male presents status post fall. Patient is on Coumadin. He fell down 3 steps striking the back of his had. He has no pain complaints. No headache. No focal numbness or weakness. He came through walking in triage. He denies loss of consciousness. Denies neck pain. Denies abdominal pain or chest pain. - Related Data Home Medications Medication Instructions Recorded Confirmed Cholecalciferol [Vitamin D3] 1,000 unit PO DAILY 01/06/14 01/08/20 Isosorbide Mononitrate [Imdur] 60 mg PO DAILY 01/06/14 01/08/20 Omeprazole [PriLOSEC] 20 mg PO AC-BRKFST 01/06/14 01/08/20 Potassium Chloride [Klor-Con 20] 20 meq PO BID 01/06/14 01/08/20 Tamsulosin [Flomax] 0.4 mg PO HS 01/06/14 01/08/20 Vit A,C & E/Lutein/Minerals 1 tab PO PC-SUPPER 01/06/14 01/08/20 [Ocuvite Tablet] Aspirin EC [Ecotrin] 81 mg PO DAILY 01/05/16 01/08/20 Atorvastatin [Lipitor] 80 mg PO PC-SUPPER 03/15/17 01/08/20 Vitamin B Complex 1 cap PO DAILY 03/15/17 01/08/20 atenoloL [Tenormin] 25 mg PO BID 03/15/17 01/08/20 Losartan [Cozaar] 25 mg PO PC-SUPPER 11/06/18 01/08/20 Warfarin [Coumadin] 5 mg PO PC-SUPPER 11/06/18 01/08/20 Furosemide [Lasix] 40 mg PO DAILY 08/04/19 01/08/20 Levothyroxine Sodium [Synthroid] 100 mcg PO SUTUTHSA 08/04/19 01/08/20 Spironolactone [Aldactone] 25 mg PO DAILY 08/04/19 01/08/20 Sertraline HCl [Zoloft] 50 mg PO HS 08/05/19 01/08/20 Levothyroxine Sodium [Levoxyl] 112 mcg PO MOWEFR 12/26/19 01/08/20 Biotin 5 mg PO PC-SUPPER 01/08/20 01/08/20 Allergies Allergy/AdvReac Type Severity Reaction Status Date / Time codeine Allergy Rash/Hives Verified 03/08/20 18:06 Penicillins Allergy Rash/Hives Verified 03/08/20 18:06 Sulfa (Sulfonamide Allergy Rash/Hives Verified 03/08/20 18:06 Antibiotics) midazolam HCl [From Versed] AdvReac Confusion Verified 03/08/20 18:06 deseryl Allergy Unknown Uncoded 03/08/20 18:06 Review of Systems ROS Statement: Those systems with pertinent positive or pertinent negative responses have been documented in the HPI. ROS Other: All systems not noted in ROS Statement are negative. Past Medical History Past Medical History: Atrial Fibrillation, Atrial Flutter, Coronary Artery Disease (CAD), Cancer, Chest Pain / Angina, Heart Failure, GERD/Reflux, Hyperlipidemia, Hypertension, Memory Impairment, Myocardial Infarction ([place]), Osteoarthritis (OA), Prostate Disorder, Seizure Disorder, Thyroid Disorder Additional Past Medical History / Comment(s): Current L calf injury/wound, melanoma/basal cell skin cancers with removals, numbness/tingling bilateral legs/feet, RLS, bronchitis, varicosities, diverticular disease/benign polypectomy, BPH, recent hematuria, [place] bilaterally even with hearing aide use, 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 Last Myocardial Infarction Date:: 1994 History of Any Multi-Drug Resistant Organisms: None Reported Past Surgical History: AICD, Cardiac Ablation, Coronary Bypass/CABG, Heart Catheterization, Hernia Repair, Orthopedic Surgery, Pacemaker, Tonsillectomy Additional Past Surgical History / Comment(s): 1 vessel CABG, cardiac valve surgery, AICD/pacer originally placed in 2006 and has been redone twice, hiatal hernia repair, R knee arthroscopic surgery, detached retinal surgery L eye x2 (had erlinda), colonoscopy/benign polypectomy, basal cell skin cancer removals, melanoma skin cancer removal-top of back. Past Anesthesia/Blood Transfusion Reactions: Motion Sickness Additional Past Anesthesia/Blood Transfusion Reaction / Comment(s): "versed caused hallucinations" in the past Type of Cardiac Device: Permanent Pacemaker, AICD Device Placement Date:: unk Past Psychological History: No Psychological Hx Reported Past Alcohol Use History: None Reported Past Drug Use History: None Reported - Past Family History Father Family Medical History: CVA/TIA Mother Family Medical History: COPD Additional Family Medical History / Comment(s): Mother at age 98, it was thought that she may have had bowel cancer but d/t age, never investigated. General Exam Limitations: no limitations General appearance: alert, in no apparent distress Head exam: Present: normocephalic, other (4 cm parietal-occipital laceration with minimal active bleeding.) Eye exam: Present: normal appearance, PERRL ENT exam: Present: normal exam Neck exam: Present: normal inspection. Absent: tenderness, meningismus Respiratory exam: Present: normal lung sounds bilaterally. Absent: respiratory distress, wheezes Cardiovascular Exam: Present: regular rate, normal rhythm GI/Abdominal exam: Present: soft. Absent: distended, tenderness, guarding Extremities exam: Present: normal inspection, normal capillary refill. Absent: pedal edema Back exam: Present: normal inspection, full ROM Neurological exam: Present: alert, oriented X3, CN II-XII intact, normal gait. Absent: motor sensory deficit Psychiatric exam: Present: normal affect, normal mood Skin exam: Present: warm, dry. Absent: cyanosis, diaphoretic Course Vital Signs 03/08/20 18:03 Temperature 98.0 F Pulse Rate 60 Respiratory 18 Rate Blood Pressure 146/71 O2 Sat by Pulse 96 Oximetry EKG Findings - EKG Comments: EKG Findings:: EKG: Paced rhythm, rate of 60, QRS duration 218, QTC 524, no ST segment elevation consistent with [place] Procedures - Laceration Laceration #1 Consent Obtained: verbal consent Indication: laceration Site: scalp Size (cm): 4 Description: linear Depth: simple, single layer Pre-repair: wound explored, irrigated extensively Type of Sutures: other (Status) Number of Sutures: 5 Technique: simple, interrupted Patient Tolerated Procedure: well Medical Decision Making - Medical Decision Making 89-year-old male with mechanical fall, head injury. Head CT performed, this is negative for acute intracranial hemorrhage, showing concern for normal pressure hydrocephalus. Chest x-ray concerning for pulmonary vascular congestion or patient has no complaints of chest pain or dyspnea. He has an INR of 2.6. His creatinine is 1.93 which is baseline. His hemoglobin is stable. His laceration on his vital scalp was repaired with reinier in the emergency department. Rupert coats tolerates the procedure well. It is eager for discharge. He lives with his and can be observed. - Lab Data Result diagrams: 03/08/20 18:38 03/08/20 18:38 Lab Results 03/08/20 03/08/20 03/08/20 Range/Units 18:38 18:38 18:38 WBC 6.8 (3.8-10.6) k/uL RBC 4.39 (4.30-5.90) m/uL Hgb 13.1 (13.0-17.5) gm/dL Hct 39.7 (39.0-53.0) % MCV 90.3 (80.0-100.0) fL MCH 29.7 (25.0-35.0) pg MCHC 32.9 (31.0-37.0) g/dL RDW 13.9 (11.5-15.5) % Plt Count 103 L (150-450) k/uL Neutrophils % 76 % Lymphocytes % 12 % Monocytes % 6 % Eosinophils % 4 % Basophils % 1 % Neutrophils # 5.2 (1.3-7.7) k/uL Lymphocytes # 0.8 L (1.0-4.8) k/uL Monocytes # 0.4 (0-1.0) k/uL Eosinophils # 0.3 (0-0.7) k/uL Basophils # 0.1 (0-0.2) k/uL PT 25.4 H (9.0-12.0) sec INR 2.6 H (<1.2) APTT 34.5 H (22.0-30.0) sec Sodium 138 (137-145) mmol/L Potassium 4.8 (3.5-5.1) mmol/L Chloride 102 (98-107) mmol/L Carbon Dioxide 24 (22-30) mmol/L Anion Gap 12 mmol/L BUN 41 H (9-20) mg/dL Creatinine 1.93 H (0.66-1.25) mg/dL Est GFR (CKD-EPI)AfAm 35 (>60 ml/min/1.73 sqM) Est GFR (CKD-EPI)NonAf 31 (>60 ml/min/1.73 sqM) Glucose 105 H (74-99) mg/dL Calcium 10.2 (8.4-10.2) mg/dL Disposition Clinical Impression: Concussion, Scalp laceration Disposition: HOME SELF-CARE Condition: Fair Instructions (If sedation given, give patient instructions): Fall Prevention (ED), Laceration (ED), Care For Your Stitches (DC), Concussion (ED) Additional Instructions: Please return for your staple removal in 10-14 days. Is patient prescribed a controlled substance at d/c from ED?: No Referrals: See Cobos MD [Primary Care Provider] - 1-2 days Time of Disposition: 19:40
[2020-03-08 19:01] LABS: Calcium 10.2 mg/dL (8.4-10.2); Potassium 4.8 mmol/L (3.5-5.1)
[2020-03-08 19:04] LABS: INR 2.6 (<1.2); Prothrombin Time 25.4 sec (9.0-12.0)
[2020-03-08 19:05] LABS: Partial Thromboplastin Time 34.5 sec (22.0-30.0)
--- NOTE | 2020-03-08 19:13 | XR ---
EXAMINATION TYPE: XR chest 1V portable DATE OF EXAM: 03/08/2020 Comparison: 01/08/2020 Clinical History: 89-year-old male fall, trauma, pain Findings: Median sternotomy wires are present with post-CABG clips. Left anterior chest wall ICD generator with right atrial and right ventricular leads. Heart borderline enlarged. Diffuse interstitial opacity. T here is intermediate old right-sided rib fracture deformities as compared to 01/08/2020. Left base is o bscured by the generator device. Impression: Diffuse interstitial opacity which may in part be chronic. Correlate to exclude pulmonary vascular co ngestion.
--- NOTE | 2020-03-08 19:14 | XR ---
EXAMINATION TYPE: XR pelvis AP view DATE OF EXAM: 03/08/2020 COMPARISON: 08/04/2019 HISTORY: 89-year-old male trauma, fall, pain FINDINGS: Chronic healed fracture deformity of the left pubic bone and degenerative change of the pubic symphys is. Osteopenia. Mild degenerative change of both hips. No acute fracture, subluxation, dislocation se en. IMPRESSION: Chronic posttraumatic deformity of the left pubic bone and degenerative change of the pubic symphysis . Mild bilateral hip OA. Osteopenia without acute fracture identified.
[2020-03-08 21:02] VITALS: BP 150/73; RESP 16; TEMP 97.8
== END 2020-03-08 20:43 | disposition home or self-care (01) ==
LOC: EC 17:59
DX: S06.0X9A Concussion with loss of consciousness of unspecified duration, initial encounter (principal); S01.01XA Laceration without foreign body of scalp, initial encounter; I48.91 Unspecified atrial fibrillation; I48.92 Unspecified atrial flutter; I25.2 Old myocardial infarction; E07.9 Disorder of thyroid, unspecified; E78.5 Hyperlipidemia, unspecified; I11.0 Hypertensive heart disease with heart failure; I50.9 Heart failure, unspecified; K21.9 Gastro-esophageal reflux disease without esophagitis; G40.909 Epilepsy, unspecified, not intractable, without status epilepticus; I25.10 Atherosclerotic heart disease of native coronary artery without angina pectoris; Z79.01 Long term (current) use of anticoagulants; Z79.82 Long term (current) use of aspirin; Z79.899 Other long term (current) drug therapy; Z79.890 Hormone replacement therapy; Z88.0 Allergy status to penicillin; Z88.2 Allergy status to sulfonamides; Z88.5 Allergy status to narcotic agent; Z88.8 Allergy status to other drugs, medicaments and biological substances; Z88.4 Allergy status to anesthetic agent; Z95.1 Presence of aortocoronary bypass graft; Z95.0 Presence of cardiac pacemaker; Z85.820 Personal history of malignant melanoma of skin; W10.9XXA Fall (on) (from) unspecified stairs and steps, initial encounter
CPT/HCPCS: 12002; 36415; 70450; 71045; 72125; 72170; 80048; 85025; 85610; 85730; 90471; 90715; 99284

== ENCOUNTER 2020-03-09 03:13 | Emergency (ER) | payer MEDICARE ==
[2020-03-09 03:19] VITALS: RESP 18; TEMP 98.2
[2020-03-09] MEDS ORDERED: TRANEXAMIC ACID 1,000 MG in SODIUM CHLORIDE 0.9% 100 ML IVPB ONE (03:24)
[2020-03-09] MEDS ORDERED: GELATIN SPONGE,ABSORB (LARGE) 1 EACH SPONGE TOPICAL STA (03:24)
--- NOTE | 2020-03-09 03:24 | ED ---
Wound/Laceration HPI - General Chief Complaint: Wound/Laceration Stated Complaint: Head bleeding Time Seen by Provider: 03/09/20 03:23 Source: patient Mode of arrival: ambulatory Limitations: no limitations - History of Present Illness Initial Comments: Ha is a pleasant 89-year-old male who was seen and evaluated in our emergency department yesterday after a fall. He had a laceration of the head that was repaired with reinier. Dressing was then placed and he was discharged home. Patient's noted that the blood seemed to sleep through the dressing and he was still bleeding and that prompted her to bring him back to the ER for evaluation. She states he did not take his Coumadin tonight because she was concerned about the bleeding and his INR was 2.6 yesterday when evaluated. Patient denies any new complaints. - Related Data Home Medications Medication Instructions Recorded Confirmed Cholecalciferol [Vitamin D3] 1,000 unit PO DAILY 01/06/14 01/08/20 Isosorbide Mononitrate [Imdur] 60 mg PO DAILY 01/06/14 01/08/20 Omeprazole [PriLOSEC] 20 mg PO AC-BRKFST 01/06/14 01/08/20 Potassium Chloride [Klor-Con 20] 20 meq PO BID 01/06/14 01/08/20 Tamsulosin [Flomax] 0.4 mg PO HS 01/06/14 01/08/20 Vit A,C & E/Lutein/Minerals 1 tab PO PC-SUPPER 01/06/14 01/08/20 [Ocuvite Tablet] Aspirin EC [Ecotrin] 81 mg PO DAILY 01/05/16 01/08/20 Atorvastatin [Lipitor] 80 mg PO PC-SUPPER 03/15/17 01/08/20 Vitamin B Complex 1 cap PO DAILY 03/15/17 01/08/20 atenoloL [Tenormin] 25 mg PO BID 03/15/17 01/08/20 Losartan [Cozaar] 25 mg PO PC-SUPPER 11/06/18 01/08/20 Warfarin [Coumadin] 5 mg PO PC-SUPPER 11/06/18 01/08/20 Furosemide [Lasix] 40 mg PO DAILY 08/04/19 01/08/20 Levothyroxine Sodium [Synthroid] 100 mcg PO SUTUTHSA 08/04/19 01/08/20 Spironolactone [Aldactone] 25 mg PO DAILY 08/04/19 01/08/20 Sertraline HCl [Zoloft] 50 mg PO HS 08/05/19 01/08/20 Levothyroxine Sodium [Levoxyl] 112 mcg PO MOWEFR 12/26/19 01/08/20 Biotin 5 mg PO PC-SUPPER 01/08/20 01/08/20 Allergies Allergy/AdvReac Type Severity Reaction Status Date / Time codeine Allergy Rash/Hives Verified 03/09/20 03:19 Penicillins Allergy Rash/Hives Verified 03/09/20 03:19 Sulfa (Sulfonamide Allergy Rash/Hives Verified 03/09/20 03:19 Antibiotics) midazolam HCl [From Versed] AdvReac Confusion Verified 03/09/20 03:19 deseryl Allergy Unknown Uncoded 03/09/20 03:19 Review of Systems ROS Statement: Those systems with pertinent positive or pertinent negative responses have been documented in the HPI. ROS Other: All systems not noted in ROS Statement are negative. Past Medical History Past Medical History: Atrial Fibrillation, Atrial Flutter, Coronary Artery Disease (CAD), Cancer, Chest Pain / Angina, Heart Failure, GERD/Reflux, Hyperlipidemia, Hypertension, Memory Impairment, Myocardial Infarction ([place]), Osteoarthritis (OA), Prostate Disorder, Seizure Disorder, Thyroid Disorder Additional Past Medical History / Comment(s): Current L calf injury/wound, melanoma/basal cell skin cancers with removals, numbness/tingling bilateral legs/feet, RLS, bronchitis, varicosities, diverticular disease/benign polypectomy, BPH, recent hematuria, [place] bilaterally even with hearing aide use, 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 Last Myocardial Infarction Date:: 1994 History of Any Multi-Drug Resistant Organisms: None Reported Past Surgical History: AICD, Cardiac Ablation, Coronary Bypass/CABG, Heart Catheterization, Hernia Repair, Orthopedic Surgery, Pacemaker, Tonsillectomy Additional Past Surgical History / Comment(s): 1 vessel CABG, cardiac valve surgery, AICD/pacer originally placed in 2006 and has been redone twice, hiatal hernia repair, R knee arthroscopic surgery, detached retinal surgery L eye x2 (had erlinda), colonoscopy/benign polypectomy, basal cell skin cancer removals, melanoma skin cancer removal-top of back. Past Anesthesia/Blood Transfusion Reactions: Motion Sickness Additional Past Anesthesia/Blood Transfusion Reaction / Comment(s): "versed caused hallucinations" in the past Type of Cardiac Device: Permanent Pacemaker, AICD Device Placement Date:: unk Past Psychological History: No Psychological Hx Reported Past Alcohol Use History: None Reported Past Drug Use History: None Reported - Past Family History Father Family Medical History: CVA/TIA Mother Family Medical History: COPD Additional Family Medical History / Comment(s): Mother at age 98, it was thought that she may have had bowel cancer but d/t age, never investigated. General Exam - General Exam Comments Initial Comments: Physical Exam GENERAL: Patient is well-developed and well-nourished. Patient is nontoxic and well-hydrated and is in no distress. HENT: Laceration on top of head, [address], there is a small area of arterial bleeding at the second staple site from the right end EYES: PERRL, EOMI No conjunctival pallor PULMONARY: Unlabored respirations. CARDIOVASCULAR: RRR Warm and well perfused extremities ABDOMEN: Non-distended SKIN: No rashes or bruising : Deferred NEUROLOGIC: Alert and oriented Normal speech Normal gait MUSCULOSKELETAL: Moving all extremities with no apparent injury PSYCHIATRIC: No SI/HI Limitations: no limitations Course Vital Signs 03/09/20 03:15 Temperature 98.2 F Pulse Rate 58 L Respiratory 18 Rate Blood Pressure 152/74 O2 Sat by Pulse 94 L Oximetry Procedures - Laceration Laceration #1 Consent Obtained: verbal consent Indication: laceration Site: scalp Size (cm): 5 Description: linear Depth: simple, single layer Anesthetic Used: lidocaine 1%, with epi Anesthesia Technique: local infiltration Amount (mls): 2 Type of Sutures: vicryl Size of Sutures: 4-0 Number of Sutures: 10 Technique: simple, interrupted Patient Tolerated Procedure: well Medical Decision Making - Medical Decision Making Patient was seen and evaluated history is obtained from the patient History and physical exam concerning for a laceration with a small tiny arteriolar bleed 3 reinier were removed and the bleed as well as a laceration was repaired with 10 interrupted sutures of 4.0 absorbable suture Repeat labs were obtained to assess for blood loss, hemoglobin relatively stable down to 12.8 from 13.1 Patient was observed for 30 minutes with no additional bleeding Gelfoam was applied over the wound and a dressing was applied The patient was again discharged home with wound care instructions, close return parameters - Lab Data Result diagrams: 03/09/20 03:51 Lab Results 03/09/20 03/09/20 Range/Units 03:51 03:51 WBC 8.5 (3.8-10.6) k/uL RBC 4.29 L (4.30-5.90) m/uL Hgb 12.8 L (13.0-17.5) gm/dL Hct 39.1 (39.0-53.0) % MCV 91.1 (80.0-100.0) fL MCH 29.8 (25.0-35.0) pg MCHC 32.8 (31.0-37.0) g/dL RDW 14.0 (11.5-15.5) % Plt Count 109 L (150-450) k/uL Neutrophils % 68 % Lymphocytes % 21 % Monocytes % 7 % Eosinophils % 2 % Basophils % 1 % Neutrophils # 5.8 (1.3-7.7) k/uL Lymphocytes # 1.7 (1.0-4.8) k/uL Monocytes # 0.6 (0-1.0) k/uL Eosinophils # 0.2 (0-0.7) k/uL Basophils # 0.0 (0-0.2) k/uL PT 24.9 H (9.0-12.0) sec INR 2.6 H (<1.2) Disposition Clinical Impression: Laceration Disposition: HOME SELF-CARE Additional Instructions: You have dissolvable sutures, they do not need to be removed Keep the wound clean and dry Return to the ER for any bleeding or signs of infection Is patient prescribed a controlled substance at d/c from ED?: No Referrals: See Cobos MD [Primary Care Provider] - 1-2 days
[2020-03-09] MEDS ORDERED: LIDOCAINE 1%-EPI 1:100,000 20 ML VIAL SQ STA (03:38)
[2020-03-09 04:24] LABS: Basophils % (A) 1 %; Eosinophils # (A) 0.2 k/uL (0-0.7); Eosinophils % (A) 2 %; HCT 39.1 % (39.0-53.0); HGB 12.8 gm/dL (13.0-17.5); Lymphocytes # (A) 1.7 k/uL (1.0-4.8); Lymphocytes % (A) 21 %; MCH 29.8 pg (25.0-35.0); MCHC 32.8 g/dL (31.0-37.0); MCV 91.1 fL (80.0-100.0); Mean Platelet Volume 7.5; Monocytes # (A) 0.6 k/uL (0-1.0); Monocytes % (A) 7 %; Neutrophils # (A) 5.8 k/uL (1.3-7.7); Neutrophils % (A) 68 %; Platelet Count 109 k/uL (150-450); RBC 4.29 m/uL (4.30-5.90); WBC 8.5 k/uL (3.8-10.6)
[2020-03-09 04:25] LABS: INR 2.6 (<1.2); Prothrombin Time 24.9 sec (9.0-12.0)
[2020-03-09] MEDS ORDERED: diphenhydrAMINE 25 MG CAP PO STA (04:37)
[2020-03-09 04:45] VITALS: BP 126/61; PULSE 60
== END 2020-03-09 04:44 | disposition home or self-care (01) ==
LOC: EC 03:13
DX: S01.01XD Laceration without foreign body of scalp, subsequent encounter (principal); I25.110 Atherosclerotic heart disease of native coronary artery with unstable angina pectoris; I11.0 Hypertensive heart disease with heart failure; I50.9 Heart failure, unspecified; K21.9 Gastro-esophageal reflux disease without esophagitis; M19.90 Unspecified osteoarthritis, unspecified site; E03.9 Hypothyroidism, unspecified; N40.0 Benign prostatic hyperplasia without lower urinary tract symptoms; I25.2 Old myocardial infarction; E78.5 Hyperlipidemia, unspecified; Z79.01 Long term (current) use of anticoagulants; Z79.899 Other long term (current) drug therapy; Z79.890 Hormone replacement therapy; Z79.82 Long term (current) use of aspirin; Z88.5 Allergy status to narcotic agent; Z88.0 Allergy status to penicillin; Z88.2 Allergy status to sulfonamides; Z85.820 Personal history of malignant melanoma of skin; W19.XXXD Unspecified fall, subsequent encounter
CPT/HCPCS: 12002; 36415; 85025; 85610; 99283

== ENCOUNTER 2020-05-08 07:41 | Emergency (ER) | payer MEDICARE ==
[2020-05-08 07:47] VITALS: RESP 18; TEMP 97.8
--- NOTE | 2020-05-08 08:09 | ED ---
Lower Extremity Injury HPI - General Chief Complaint: Extremity Injury, Lower Stated Complaint: Fall Time Seen by Provider: 05/08/20 07:49 Source: patient, RN notes reviewed Mode of arrival: ambulatory Limitations: no limitations - History of Present Illness Initial Comments: This is a 89-year-old male presents emergency Department chief complaint of left leg injury. Patient states that he was sitting on a truck tailgate and states he slipped hitting his leg on the bumper. Patient states that he's had increasing swelling to his left thigh and which she states is very bruised. Patient states it sort of the touch. Patient does admit that he is on Coumadin from prior open heart surgery and valve replacement. Patient denies any head injury no loss consciousness. Patient states he has no pain hip or knee only over the area of bruising. - Related Data Home Medications Medication Instructions Recorded Confirmed Cholecalciferol [Vitamin D3] 1,000 unit PO DAILY 01/06/14 01/08/20 Isosorbide Mononitrate [Imdur] 60 mg PO DAILY 01/06/14 01/08/20 Omeprazole [PriLOSEC] 20 mg PO AC-BRKFST 01/06/14 01/08/20 Potassium Chloride [Klor-Con 20] 20 meq PO BID 01/06/14 01/08/20 Tamsulosin [Flomax] 0.4 mg PO HS 01/06/14 01/08/20 Vit A,C & E/Lutein/Minerals 1 tab PO PC-SUPPER 01/06/14 01/08/20 [Ocuvite Tablet] Aspirin EC [Ecotrin] 81 mg PO DAILY 01/05/16 01/08/20 Atorvastatin [Lipitor] 80 mg PO PC-SUPPER 03/15/17 01/08/20 Vitamin B Complex 1 cap PO DAILY 03/15/17 01/08/20 atenoloL [Tenormin] 25 mg PO BID 03/15/17 01/08/20 Losartan [Cozaar] 25 mg PO PC-SUPPER 11/06/18 01/08/20 Warfarin [Coumadin] 5 mg PO PC-SUPPER 11/06/18 01/08/20 Furosemide [Lasix] 40 mg PO DAILY 08/04/19 01/08/20 Levothyroxine Sodium [Synthroid] 100 mcg PO SUTUTHSA 08/04/19 01/08/20 Spironolactone [Aldactone] 25 mg PO DAILY 08/04/19 01/08/20 Sertraline HCl [Zoloft] 50 mg PO HS 08/05/19 01/08/20 Levothyroxine Sodium [Levoxyl] 112 mcg PO MOWEFR 12/26/19 01/08/20 Biotin 5 mg PO PC-SUPPER 01/08/20 01/08/20 Allergies Allergy/AdvReac Type Severity Reaction Status Date / Time codeine Allergy Rash/Hives Verified 05/08/20 07:47 Penicillins Allergy Rash/Hives Verified 05/08/20 07:47 Sulfa (Sulfonamide Allergy Rash/Hives Verified 05/08/20 07:47 Antibiotics) midazolam HCl [From Versed] AdvReac Confusion Verified 05/08/20 07:47 deseryl Allergy Unknown Uncoded 05/08/20 07:47 Review of Systems ROS Statement: Those systems with pertinent positive or pertinent negative responses have been documented in the HPI. ROS Other: All systems not noted in ROS Statement are negative. Past Medical History Past Medical History: Atrial Fibrillation, Atrial Flutter, Coronary Artery Disease (CAD), Cancer, Chest Pain / Angina, Heart Failure, GERD/Reflux, Hyperlipidemia, Hypertension, Memory Impairment, Myocardial Infarction ([place]), Osteoarthritis ([place]), Prostate Disorder, Seizure Disorder, Thyroid Disorder Additional Past Medical History / Comment(s): Current L calf injury/wound, melanoma/basal cell skin cancers with removals, numbness/tingling bilateral legs/feet, RLS, bronchitis, varicosities, diverticular disease/benign polypectomy, BPH, recent hematuria, [id number] bilaterally even with hearing aide use, 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 Last Myocardial Infarction Date:: 1994 History of Any Multi-Drug Resistant Organisms: None Reported Past Surgical History: AICD, Cardiac Ablation, Coronary Bypass/CABG, Heart Catheterization, Hernia Repair, Orthopedic Surgery, Pacemaker, Tonsillectomy Additional Past Surgical History / Comment(s): 1 vessel CABG, cardiac valve surgery, AICD/pacer originally placed in 2006 and has been redone twice, hiatal hernia repair, R knee arthroscopic surgery, detached retinal surgery L eye x2 (had erlinda), colonoscopy/benign polypectomy, basal cell skin cancer removals, melanoma skin cancer removal-top of back. Past Anesthesia/Blood Transfusion Reactions: Motion Sickness Additional Past Anesthesia/Blood Transfusion Reaction / Comment(s): "versed caused hallucinations" in the past Type of Cardiac Device: Permanent Pacemaker, AICD Device Placement Date:: unk Past Psychological History: No Psychological Hx Reported Smoking Status: Never smoker Past Alcohol Use History: None Reported Past Drug Use History: None Reported - Past Family History Father Family Medical History: CVA/TIA Mother Family Medical History: COPD Additional Family Medical History / Comment(s): Mother at age 98, it was thought that she may have had bowel cancer but d/t age, never investigated. General Exam Limitations: no limitations General appearance: alert, in no apparent distress Head exam: Present: atraumatic, normocephalic, normal inspection Eye exam: Present: normal appearance, PERRL, EOMI. Absent: scleral icterus, conjunctival injection, periorbital swelling Neck exam: Present: normal inspection, full ROM. Absent: tenderness, meningismus, lymphadenopathy Respiratory exam: Present: normal lung sounds bilaterally. Absent: respiratory distress, wheezes, rales, rhonchi, stridor Cardiovascular Exam: Present: normal rhythm, tachycardia, normal heart sounds. Absent: systolic murmur, diastolic murmur, rubs, gallop, clicks GI/Abdominal exam: Present: soft, normal bowel sounds. Absent: distended, tenderness, guarding, rebound, rigid Extremities exam: Present: other (Left thigh there is ecchymosis noted, swelling area is approximately 12 cm x 12 cm) Neurological exam: Present: alert, oriented X3, reflexes normal. Absent: motor sensory deficit Skin exam: Present: warm, dry, intact, normal color. Absent: rash Course Vital Signs 05/08/20 07:44 Temperature 97.8 F Pulse Rate 125 H Respiratory 18 Rate Blood Pressure 117/58 O2 Sat by Pulse 97 Oximetry Medical Decision Making - Medical Decision Making Ultrasound was performed which shows multiple hematomas left thigh. There is no drainable collection per radiology reading. Patient does have an INR 3.4 patient states is secondary to bowel replacement in which he reports he normally want him on the higher side. Patient does not have any worsening symptoms in the emergency department pain is well-controlled. Patient advised to return for any worsening or changing symptoms strict return parameters were outlined. Patient advised to not take his Coumadin tonight and to have close follow-up in 24 hours. - Lab Data Lab Results 05/08/20 Range/Units 08:00 PT 33.0 H (9.0-12.0) sec INR 3.4 H (<1.2) Disposition Clinical Impression: Hematoma of left thigh Disposition: HOME SELF-CARE Condition: Stable Instructions (If sedation given, give patient instructions): Hematoma (ED) Additional Instructions: Please hold your Coumadin dose tonight. Please return to the Emergency De partment if symptoms worsen or any other concerns. Is patient prescribed a controlled substance at d/c from ED?: No Referrals: See Cobos MD [Primary Care Provider] - 1-2 days Time of Disposition: 09:37
[2020-05-08 08:35] LABS: INR 3.4 (<1.2)
--- NOTE | 2020-05-08 09:15 | US ---
EXAMINATION TYPE: US extremity nonvasc mass LT DATE OF EXAM: 05/08/2020 COMPARISON: NONE CLINICAL HISTORY: left leg hematoma. Patients entire anterior medial thigh encompassed in a large bruise with raised area and wound in devin ter. This is from a fall that happened yesterday. 3 likely separate hypoechoic lesions measurin.) 7.1 x 3.2 x 5.1cm 2.) 3.8 x 2.3 x 4.3cm 3.) 5.7 x 3.5 x 6.5 cm No internal color Doppler flow or focal drainable component. IMPRESSION: Multiple hypoechoic areas, likely hematomas, of the thigh as above. No focal drainable fluid componen t.
[2020-05-08 09:44] VITALS: BP 126/78; PULSE 60
== END 2020-05-08 09:44 | disposition home or self-care (01) ==
LOC: EC 07:41
DX: S70.12XA Contusion of left thigh, initial encounter (principal); I48.91 Unspecified atrial fibrillation; I48.92 Unspecified atrial flutter; I25.119 Atherosclerotic heart disease of native coronary artery with unspecified angina pectoris; I11.0 Hypertensive heart disease with heart failure; I50.9 Heart failure, unspecified; I25.2 Old myocardial infarction; K21.9 Gastro-esophageal reflux disease without esophagitis; E78.5 Hyperlipidemia, unspecified; E03.9 Hypothyroidism, unspecified; G40.909 Epilepsy, unspecified, not intractable, without status epilepticus; Z79.01 Long term (current) use of anticoagulants; Z79.82 Long term (current) use of aspirin; Z79.899 Other long term (current) drug therapy; Z79.890 Hormone replacement therapy; Z88.0 Allergy status to penicillin; Z88.2 Allergy status to sulfonamides; Z88.5 Allergy status to narcotic agent; Z88.4 Allergy status to anesthetic agent; Z88.8 Allergy status to other drugs, medicaments and biological substances; Z95.1 Presence of aortocoronary bypass graft; Z95.0 Presence of cardiac pacemaker; Z95.2 Presence of prosthetic heart valve; Z85.820 Personal history of malignant melanoma of skin; W01.198A Fall on same level from slipping, tripping and stumbling with subsequent striking against other object, initial encounter
CPT/HCPCS: 36415; 85610; 99284

== ENCOUNTER → 2020-05-14 | Outpatient (CLI) | payer MEDICARE ==
--- NOTE | 2020-05-14 11:59 | US ---
EXAMINATION TYPE: US venous doppler duplex LE LT DATE OF EXAM: 05/14/2020 11:30 AM COMPARISON: NONE CLINICAL HISTORY: I82.409 ACUTE EMBOLISM AND THROMBOSIS. Edema SIDE PERFORMED: Left TECHNIQUE: The lower extremity deep venous system is examined utilizing real time linear array sonog nisa with graded compression, doppler sonography and color-flow sonography. VESSELS IMAGED: Common Femoral Vein Deep Femoral Vein Greater Saphenous Vein * Femoral Vein Popliteal Vein Small Saphenous Vein * Proximal Calf Veins (* superficial vessels) Left Leg: Negative for DVT There is normal flow, compressibility, vascular waveforms IMPRESSION: No evident deep venous thrombosis at or above the left knee
[2020-05-14 12:47] LABS: INR 2.7 (<1.2); Prothrombin Time 26.6 sec (9.0-12.0)
[2020-05-14 12:53] LABS: Albumin 3.5 g/dL (3.5-5.0); Calcium 9.2 mg/dL (8.4-10.2); Potassium 5.1 mmol/L (3.5-5.1); Total Bilirubin 1.8 mg/dL (0.2-1.3); Total Protein 6.2 g/dL (6.3-8.2)
[2020-05-14 12:57] LABS: Basophils % (A) 1 %; Eosinophils # (A) 0.2 k/uL (0-0.7); Eosinophils % (A) 2 %; Lymphocytes # (A) 0.6 k/uL (1.0-4.8); Lymphocytes % (A) 8 %; MCH 31.5 pg (25.0-35.0); MCHC 34.2 g/dL (31.0-37.0); Mean Platelet Volume 7.2; Monocytes # (A) 0.5 k/uL (0-1.0); Monocytes % (A) 7 %; Neutrophils % (A) 81 %; Platelet Count 138 k/uL (150-450); RBC 3.05 m/uL (4.30-5.90); RDW 14.7 % (11.5-15.5); WBC 7.4 k/uL (3.8-10.6)
[2020-05-14 13:01] LABS: HGB 9.6 gm/dL (13.0-17.5)
== END | disposition home or self-care (01) ==
LOC: RADUSWWP 11:13
PROVIDERS: ATTEND Family Medicine
DX: I82.409 Acute embolism and thrombosis of unspecified deep veins of unspecified lower extremity (principal); I11.0 Hypertensive heart disease with heart failure; I50.22 Chronic systolic (congestive) heart failure; I25.810 Atherosclerosis of coronary artery bypass graft(s) without angina pectoris
CPT/HCPCS: 80053; 85025; 85610